=== PATIENT | female | born 1970 | race Caucasian/White ===

== ENCOUNTER 2024-12-22 10:38 | Outpatient (AMB) | payer OTHER, SELFPAY ==
--- NOTE | 2024-12-22 10:50 | A.OFFPC_ITS ---
Vital Signs 12/22/24 11:12 Height 5 ft 2 in Weight 164 lb 4 oz BMI 30.0 BP 100/62 Blood Pressure Location Lt brachial Position Sitting Respiration 18 Pulse 70 Pulse Source Pulse Oximeter Temp 97.1 F Temp Source Temporal Artery Scan Pulse Oximetry (%) 96 Oxygen Delivery Method Room Air Intake Visit Reasons: establish care Supervisor Graphite Required: No Accompanied by: Self / Same As Patient Allergies adhesive tape Adverse Reaction (Mild, Verified 12/22/24 11:45) Rash latex Adverse Reaction (Mild, Verified 12/22/24 11:45) Itching Medication List - Last Reconciled 12/22/24 by VENTURA Warner apixaban (Eliquis) 5 mg PO BID betamethasone dipropionate 0.05% 1 appl topical BID bupropion HCl XL 300 mg PO QAM warfarin 2 mg PO DAILY Tobacco use date assessed: 12/22/24 Dental Screening Dental Screen Date: 12/22/24 Did you have a dental visit in the last 12 months?: No Did you have a dental problem in the last 6 months where you did not have access to dental care?: No Was dental information given to patient?: No HPI establish care HPI Details Previous PCP: Stacy Justin [facility], Last visit: about two years Last PE: a year ago Specialist: hematology, sofie Benavidez MD, started on her on eliquis, sofie vascular Dr. Darrell RESENDIZ: Past medical history: Twisted veins and cancave veins, PE, cervical arthritis, Depression, anxiety, hemorrhoids large. Will referred to general surgery. Recurrent bleeding. breast cyst, hysterectomy, polyps, removes everything except for ovaries and tubes. menopause Medications: Family HX: father carotid artery, pacemaker, DM, brother DM, paternal aunts breast cancer, couple aunt , Problem: The patient is a 54-year-old female presenting for management of multiple chronic conditions including depression, anxiety, and hemorrhoids. The patient has a history of pulmonary embolism, which was initially diagnosed when she experienced symptoms resembling a heart attack. A CT scan confirmed the presence of a clot in the lungs, which has since been reabsorbed. She was initially treated with injections that caused significant bruising, leading to a switch to warfarin, and eventually to Eliquis due to unstable INR levels. The patient reports a history of depression and anxiety, for which she has been prescribed bupropion. She has been taking 300 mg but has self-adjusted the dose to 600 mg daily due to increased irritability and sleep disturbances. She experiences difficulty sleeping, often waking up in the middle of the night and struggling to return to sleep. The patient has hemorrhoids, which have been bleeding significantly, prompting a recommendation for a gastroenterology consultation. She has been using dxvv-ire-lgsjrvv Preparation H cream due to issues with obtaining prescribed medication. She has a history of twisted veins, particularly in the neck, which affects blood flow and oxygenation. This condition necessitates the continued use of blood thinners. The patient also reports arthritis in her neck, contributing to her discomfort. She experiences vertigo and has been evaluated by an ENT specialist, though no definitive cause was identified. Exercises have been recommended to manage the dizziness. The patient reports recurrent urinary tract infections, often indicated by malodorous urine. She acknowledges insufficient water intake as a contributing factor. She is post-menopausal and has experienced symptoms such as hot flashes and increased risk for urinary infections. [facility] Medical History (Updated 12/23/24 @ 22:34 by VENTURA Warner) Hemorrhoids Cervical arthritis History of colon polyps Breast cyst Recurrent UTI Pulmonary embolism Depression Anxiety Fibromyalgia AVM (arteriovenous malformation) brain Surgical History (Updated 12/23/24 @ 21:46 by VENTURA Warner) H/O: hysterectomy Family History (Updated 12/23/24 @ 21:31 by VENTURA Warner) Father Carotid artery calcification Diabetes mellitus Pacemaker Paternal Aunt Breast cancer Paternal Aunt Breast cancer Paternal Aunt Breast cancer Social History Household Members: Children Housing: House Alcohol intake: never Patient Tobacco Use Status: Never used Tobacco e-Cigarette/Vaping Use: Never Used Current occupational status: employed 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 1. Little interest or pleasure in doing things: not at all 2. Feeling down, depressed, or hopeless: not at all 3. Trouble falling or staying asleep, or sleeping too much: not at all 4. Feeling tired or having little energy: not at all 5. Poor appetite or overeating: not at all 6. Feeling bad about yourself - or that you are a failure or have let yourself or your family down: not at all 7. Trouble concentrating on things, such as reading the newspaper or watching television: not at all 8. Moving or speaking so slowly that other people could have noticed. Or the opposite - being so fidgety or restless that you have been moving around a lot more than usual: not at all 9. Thoughts that you would be better off or of hurting yourself in some way: not at all Total score: 0 Source: Developed by Drs. Brent Gutiérrez, Gloria Small, Rodolfo Barkley and colleagues, with an educational ange from [employer]. Thrive Questionnaire Date Thrive assessed: 12/15/24 I am a: Patient What is your living situation today?: I have a steady place to live Within the past 12 months, did the food you bought not last and you didn't have the money to get more?: I choose not to answer this question Within the past 12 months, did you worry whether your food would run out before you got money to buy more?: I choose not to answer this question Do you have trouble paying for medicines?: I choose not to answer this question Do you have trouble getting transportation to medical appointments?: I choose not to answer this question Do you have trouble paying your heating and electricity bill?: I choose not to answer this question Do you have trouble taking care of your child, family member or friend?: I choos e not to answer this question Do you have trouble with day-to-day activities such as bathing, preparing meals, shopping, managing finances, etc.?: I choose not to answer this question Are you currently unemployed and looking for a job?: I choose not to answer this question Are you interested in more education?: I choose not to answer this question Please select the resources that you would like help with: None Currently or been in a relationship where the following occur: I choose not to answer THRIVE Score: 0 AUDIT C Alcohol Use Questionnaire (AUDIT-C) 1. How often do you have a drink containing alcohol?: Never 3. How often do you have six or more drinks on one occasion?: Never Total Score: 0 SANDRA-7 AMB Questionnaire SANDRA-7 Feeling nervous, anxious, or on edge: 2 = More than half the days Not being able to stop or control worryin = More than half the days Worrying too much about different things: 2 = More than half the days Trouble relaxin = More than half the days Being so restless that it is hard to sit still: 0 = Not at all Becoming easily annoyed or irritable: 2 = More than half the days Feeling afraid as if something awful might happen: 0 = Not at all Total SANDRA-7 score (0-4 normal; 5-9 mild; 10-14 moderate; 15-21 severe): 10 Source: Developed by Drs. Brent Gutiérrez, Gloria Small, Rodolfo Barkley and colleagues, with an educational ange from [employer]. Review of Systems Const Reports difficulty sleeping and Denies headache(s) Eyes Denies loss of vision ENT Reports vertigo (hx), Denies dizziness, Denies headache(s) and Denies sore throat Card Denies chest pain, Denies leg edema and Denies lightheadedness Resp Denies cough, Denies hemoptysis and Denies wheezing GI Denies abdominal pain, Denies melena, Denies constipation, Denies diarrhea and Denies vomiting Denies urinary frequency, Denies dysuria and Denies urinary urgency Musc Denies arthralgias, Denies joint swelling, Denies numbness and Denies tingling Neuro Denies Abnormal speech present, Denies behavioral changes, Reports vertigo (hx), Denies dizziness, Denies headache(s), Denies loss of vision, Denies memory loss, Denies numbness and Denies tingling Psych Reports abnormal sleep pattern, Reports anxiety, Denies behavioral changes, Reports depression, Denies memory loss, Denies panic attacks, Denies homicidal ideation and Denies suicidal ideation Gavino/Lymph Denies easy bleeding and Denies easy bruising Aller/Immun Denies wheezing Physical exam (Primary Care) Vital Signs: Last Vital Signs Temp 97.1 F 12/22/24 11:12 Pulse 70 12/22/24 11:12 Resp 18 12/22/24 11:12 BP 100/62 12/22/24 11:12 Pulse Ox 96 12/22/24 11:12 Oxygen Delivery Method Room Air 12/22/24 11:12 BMI result Body Mass Index 30.0 Tobacco/Smoking Status: Tobacco use Status Tobacco use date assessed 12/22/24 12/22/24 11:27 Patient Tobacco Use Status Never used Tobacco 12/22/24 11:27 e-Cigarette/Vaping Use Never Used 12/22/24 11:27 PHQ-9: PHQ-9 Score PHQ-9: Total score 0 12/22/24 11:54 Thrive Assessment: Date of Thrive Assessment Date Thrive assessed 12/15/24 12/22/24 10:53 Currently or been in a relationship where the following occur: I choose not to answer Const General: healthy appearing, no acute distress, alert and awake Nutritional Appearance: well nourished Orientation/consciousness: oriented to person, oriented to place and oriented to time HENMT Ears: TM's normal bilaterally General nose exam: Normal nasal mucous membranes and turbinates present Eyes Conjunctivae: conjunctivae normal Sclerae: sclerae normal Pupils: Equal, round and reactive pupils present Neck Neck: Yes no lymphadenopathy and Yes no JVD Thyroid: Thyroid normal Carotids: no bruits Resp Effort & Inspection: normal respiratory effort and not tachypneic Auscultation: no crackles, no rales, no rhonchi and no wheezes Cardio Rate: regular rate Rhythm: regular rhythm Heart sounds: no murmurs and normal S1 and S2 GI Palpation (GI): Soft to palpation, nontender, no hepatomegaly and no splenomegaly Auscultation: normal bowel sounds Skin General skin exam: no rashes or lesions noted and dry skin Neuro General: oriented to person, oriented to place and oriented to time Cranial nerves: Yes Equal, round and reactive pupils present Speech: No Abnormal speech present Gait exam (Neuro): Normal gait present Motor exam (neuro): no tremor noted Extrem Right upper extremity: full ROM Left upper extremity: full ROM Right lower extremity: full ROM; no edema Left lower extremity: full ROM; no edema Psych Mental Status: mental status grossly normal Speech and movement: Normal speech and movement present Affect: normal affect Attitude: cooperative Thought process: Normal thought process present Coding Level of Care Code New Pt Level 4 (21336) Diagnoses Cyst of breast, unspecified laterality N60.09 Laterality: unspecified laterality Cervical arthritis M47.812 Pulmonary embolism without acute cor pulmonale, unspecified chronicity, unspecified pulmonary embolism type I26.99 Pulmonary embolism type: unspecified Chronicity: unspecified Acute cor pulmonale presence: without acute cor pulmonale Depression, unspecified depression type F32.A Depression Type: unspecified Anxiety F41.9 Hemorrhoids, unspecified hemorrhoid type K64.9 Hemorrhoid type: unspecified Menopause Z78.0 Vertigo R42 Insomnia, unspecified type G47.00 Insomnia type: unspecified Time Spent (min) 39 Assessment & Plan Assessment & Plan (1) Breast cyst: Code(s): N60.09 - Solitary cyst of unspecified breast Category: Medical Qualifiers: Laterality: unspecified laterality Qualified Code(s): N60.09 - Solitary cyst of unspecified breast Plan: Patient reports history of dense breasts requiring added imaging after each mammogram. Reports benign breast cyst that has been monitored. (2) Cervical arthritis: Code(s): M47.812 - Spondylosis without myelopathy or radiculopathy, cervical region Category: Medical Plan: Reports neck pain. Continue conservative measures, stretching, posturing and the used of OTC pain medication as needed (3) Pulmonary embolism: Code(s): I26.99 - Other pulmonary embolism without acute cor pulmonale Category: Medical Qualifiers: Pulmonary embolism type: unspecified Chronicity: unspecified Acute cor pulmonale presence: without acute cor pulmonale Qualified Code(s): I26.99 - Other pulmonary embolism without acute cor pulmonale Plan: Continue apixaban b.i.d.. Follow up with Hematology as scheduled (4) Depression: Code(s): F32.A - Depression, unspecified Category: Medical Qualifiers: Depression Type: unspecified Qualified Code(s): F32.A - Depression, unspecified Plan: Continue bupropion HCl XL 300 mg q.a.m. Consider refer the patient to Psychiatry to increase anxiety/depression recently Reports self increasing goes to 600 mg daily. Discussed with the patient that this is above the daily dosing, and she needs to be re-evaluated if her current regimen isn't working for her. (5) Anxiety: Code(s): F41.9 - Anxiety disorder, unspecified Category: Medical Plan: Same as above (6) Hemorrhoids: Code(s): K64.9 - Unspecified hemorrhoids Category: Medical Qualifiers: Hemorrhoid type: unspecified Qualified Code(s): K64.9 - Unspecified hemorrhoids Plan: The patient reports significant bleeding from hemorrhoids and has been advised to consult a divorce lawyer for further evaluation and management. In the interim, she is using atzq-bwy-cbncovb Preparation H cream. She was evaluated in [facility] ER. Reports that an abdominal CT Scan done completed that showed no acute findings. (7) Menopause: Code(s): Z78.0 - Asymptomatic menopausal state Category: Medical Plan: Patient reports hot flashes. We will order hormone tests to further evaluate (8) Vertigo: Code(s): R42 - Dizziness and giddiness Category: Medical Plan: The patient experiences vertigo and has been evaluated by an ENT specialist, with exercises recommended to manage symptoms. (9) Insomnia: Code(s): G47.00 - Insomnia, unspecified Category: Medical Qualifiers: Insomnia type: unspecified Qualified Code(s): G47.00 - Insomnia, unspecified Plan: Reinforced sleep hygiene Start trazodone 50 mg at bedtime p.r.n. Orders: Orders Complete Blood Count Auto Diff 12/22/24. - Encounter for general adult medical examination without abnormal findings Vitamin D 25-OH Total 12/22/24. - Encounter for general adult medical examination without abnormal findings Comprehensive [place]. Panel Fast 12/22/24. - Encounter for general adult medical examination without abnormal findings Lipid Panel 12/22/24. - Encounter for general adult medical examination without abnormal findings TSH reflex Free T4 12/22/24. - Encounter for general adult medical examination without abnormal findings UA CC w/rflx Micro + Cult 12/22/24 Z. - Encounter for general adult medical examination without abnormal findings Hemoglobin A1c 12/22/24. - Encounter for general adult medical examination without abnormal findings Medications: New trazodone 50 mg PO BEDTIME PRN 30 tabs 3RF sleep bupropion HCl XL 300 mg PO QAM 90 tabs 3RF
[2024-12-22 11:12] VITALS: BP 100/62; PULSE 70; RESP 18; TEMP 36.2; O2SAT 96
== END 2024-12-22 12:33 | disposition home or self-care (01) ==
LOC: HO.HMCH 10:39
DX: N60.09 Solitary cyst of unspecified breast (principal); M47.812 Spondylosis without myelopathy or radiculopathy, cervical region; I26.99 Other pulmonary embolism without acute cor pulmonale; F32.A Depression, unspecified; F41.9 Anxiety disorder, unspecified; K64.9 Unspecified hemorrhoids; Z78.0 Asymptomatic menopausal state; R42 Dizziness and giddiness; G47.00 Insomnia, unspecified

== ENCOUNTER → 2024-12-22 10:38 | Outpatient (BNVA) | payer OTHER, SELFPAY | DX: M47.812 Spondylosis without myelopathy or radiculopathy, cervical region (principal); F32.A Depression, unspecified; F41.9 Anxiety disorder, unspecified; K64.9 Unspecified hemorrhoids; R42 Dizziness and giddiness; Z86.711 Personal history of pulmonary embolism; Z79.899 Other long term (current) drug therapy; Z79.01 Long term (current) use of anticoagulants; Z87.440 Personal history of urinary (tract) infections; N60.09 Solitary cyst of unspecified breast; G47.00 Insomnia, unspecified; Z78.0 Asymptomatic menopausal state | CPT/HCPCS: 99202 ==

== ENCOUNTER 2024-12-29 12:21 | Outpatient (REF) | payer OTHER, SELFPAY ==
[2024-12-29 13:19] LABS: MANUAL DIFF FLAG NO
[2024-12-29 13:21] LABS: Appearance Urine Clear; Glucose Urine UA Negative (Negative); PH 5.5 (5.0-9.0); Specific Gravity - Urine >= 1.030 (1.005-1.025); UMIC TRIGGER UACC YES
[2024-12-29 13:26] LABS: Hematocrit 43.4 % (37.0-47.0); Hemoglobin 14.3 g/dl (12.0-16.0); Imm Gran Abs Auto 0.03 X10*3/uL (0.00-0.03); Imm Gran Pct Auto 0.4 % (0.0-0.4); Lymphocytes Absolute Auto 2.2 X10*3/uL (1.2-4.9); Mean Corpuscular HGB Conc 32.9 g/dl (31.0-35.0); Mean Corpuscular Hemoglobin 31.4 pg (27.0-33.0); Mean Corpuscular Volume 95.4 fL (80.0-98.0); NRBC Abs Auto 0.000 X10*3/uL (0.0-0.012); NRBC Pct Auto 0.0 /100WBC (0.0-0.2); Platelet Count 310 X10*3/uL (160-400); Red Blood Count 4.55 X10*6/uL (4.20-5.50); White Blood Count 7.5 X10*3/uL (4.8-10.8)
[2024-12-29 14:15] LABS: Alanine Aminotransferase 18 U/L (0-31); Albumin Level 4.3 g/dL (3.5-5.0); Alkaline Phosphatase 64 U/L (39-117); Anion Gap 9 (12-20); Aspartate Amino Transferase 21 U/L (5-31); Blood Urea Nitrogen 20 mg/dL (9-16); Calcium 9.1 mg/dL (8.4-10.2); Carbon Dioxide 28 mmol/L (22-29); Chloride 108 mmol/L (96-108); Cholesterol 226 mg/dL (<200); Estimated Glomerular Filt Rate 57; HDL Cholesterol 53 mg/dL (>40); Potassium 4.4 mmol/L (3.3-5.1); Sodium 141 mmol/L (135-145); Total Protein 7.1 g/dL (6.5-8.0); Triglycerides 83 mg/dL (<150)
[2024-12-29 14:19] LABS: Hemoglobin A1C 104.7012 umol/L; Total Hemoglobin (HGBA1C) 3595.4519 umol/L
--- OUTSIDE RECORDS SUMMARY | 2024-12-29 15:36 | XMS_ITS | Encounter Summary ---
Author Organization [facility] Address [address] [place] [address] Care Team Providers Care Hold Worker Name Role Phone Mercy Bunch MD Primary Care Provider Thelma Camp Primary Care Provider Lorrie Solis MD Primary Care Provider [phone] Laly Gomez MD Unavailable Lorrie Solis MD Unavailable [phone] Lorrie Solis MD Unavailable Renee Walker Unavailable [phone] Lorrie Solis MD Primary Care Provider [phone] Pcp, No Primary Care Provider Unavailabl e Encounter Details Date Type Department Care Team (Late st Contact Info) Description 10/31/2015 Scanned Document [address] [id number] Provider, Generic Social History Tobacco Use Types Packs/Day Years Used Date Smoking Tobacco: Never Alcohol Use Standard Drinks/Week Comments Not Asked 0 (1 standard drink = 0.6 oz pur e alcohol) ASK,PT Comments Unknown Sex and Gender Information Value Date Recorded Sex Assigned at Female 08/07/2022 12:03 PM EDT Legal Sex Female 3:32 PM EDT Gender Identity Female 08/07/2022 12:03 PM EDT Sexual Orientation Heterosexual (straight) 08/07 12:03 PM EDT Occupation Industry Job Start Date Job End Date UNKNOWN Not on file Not on file Not on file documented as of this encounter Plan of Treatment Not on file documented as of this encounter Procedures Procedure Name Priority Date/Time Associated Diagnosis Comments ULTRASOUND EXTERNAL RESULT 11/02/2015 ULTRASOUND EXTERNAL RESULT 10/31/2015 documented in this encounter Results * ULTRASOUND EXTERNAL RESULT (11/02/2015) Anatomical Region Laterality Modality Ultrasound Narrative 11/03/2015 1:12 AM EDT Ordered by an unspecified provider. us Generic Provider IMG US ORDERABLES Edited Result - Final * ULTRASOUND EXTERNAL RESULT (10/31/2015) Anatomical Region Laterality Modality Ultrasound Narrative 11/02/2015 1:08 AM EDT Ordered by an unspecified provider. us Generic Provider IMG US ORDERABLES Edited Result - Final documented in this encounter Visit Diagnoses Not on filedocumented in this encounter Care Teams Hold Worker Relationship Specialty Start Date End Date Mercy Bunch MD PCP - General Internal Medicine 10/20/14 11/02/15 Thelma Camp PA PCP - General Internal Medicine 11/03/15 04/02/17 Lorrie Solis MD [address] [place] [address] PCP - General Internal Medicine 04/03/17 06/13/24 Lorrie Solis MD [address] [place] [address] PCP - [employer] Attributed 02/14/19 03/16/20 Lorrie Solis MD [address] [place] [address] PCP - [employer] Attributed 04/17/20 04/16/23 Lorrie Solis MD [address] [place] [id number] PCP - General Internal Medicine 06/28/24 09/23/24 Pcp, No PCP - General General Medicine 09/24/24 Laly Gomez MD [address] [place] [address] Obstetrics and Gynecology 01/01/19 Renee Walker PA [address] [place] [address] Physician Pole Tester Medical Oncology 12/17/22 documented as of this encounter
--- OUTSIDE RECORDS SUMMARY | 2024-12-29 15:36 | XMS_ITS | Clinical Summary ---
Author Organization [facility] Address [address] [place] [address] Care Team Providers Care Chief Of Internal Medicine Name Role Phone Lorrie Solis MD Primary Care Provider [phone] Allergies Active Allergy Reactions Criticality Noted Date Comments Adhesive Tape Rash Low 10/26/2012 Medications Medication Sig Dispensed Refills Start Date End Date Status buPROPion (WELLBUTRIN XL) 300 MG 24 hr tablet TAKE 1 TABLET BY MOUTH ONCE DAILY SWALLOW WHOLE DO NOT CRUSH, CHEW OR DIVIDE 0 04/17/2021 Active warfarin (COUMADIN) 2 MG tablet Take 1 tablet (2 mg total) by mouth daily. 30 tablet 0 12/30/2023 Active Active Problems Problem Noted Date Diagnosed Date Clinical depression 10/25/2014 Routine general medical exam ination at a health care facility 10/25/2014 Factor 5 Leiden mutation, heterozygous 5 Overview: heterozygosity H/O PE 10/26/10; Hypercoagulable state 10/25/2014 Anxiety state 2014 Scoliosis (and kyphoscoliosis), idiopathic 04/27 PE (pulmonary embolism) 10/26/2010 Family History Medical History Relation Name Comments Colon cancer Father Blood Clots Mother Breast cancer Paternal Aunt Deep vein thrombosis Paternal Aunt Breast cancer Sister Relation Name Status Comments Father Mother Paternal Aunt Sister Social History Tobacco Use Types Packs/Day Years Used Date Smoking Tobacco: Never Smokeless Tobacco: Never Alcohol Use Standard Drinks/Week Comments No 0 (1 standard drink = 0.6 oz pur e alcohol) Sex and Gender Information Value Date Recorded Sex Assigned at Female 09/20/2020 12:44 PM EDT Gender Identity Female 10/13/2021 12:19 PM EDT Sexual Orientation Not on file Job Start Date Occupation Industry Not on file Not on file Not on file Last Filed Vital Signs Vital Sign Reading Time Taken Comments Blood Pressure 146/67 08/27/2023 1:00 AM EDT Pulse 70 08/27/2023 1:00 AM EDT Temperature 36.6 C (97.9 F) 08/27/2023 1:00 AM EDT Respiratory Rate 17 08/27/2023 1:00 AM EDT Oxygen Saturation 97% 08/27/2023 1:00 AM EDT Inhaled Oxygen Concentration - - Weight 70.8 kg (156 lb) 08/26/2023 9:57 PM EDT Height 157.5 cm (5' 2 ) 08/26/2023 9:57 PM EDT Body Mass Index 28.53 08/26/2023 9:57 PM EDT Plan of Treatment Health Maintenance Due Date Last Done Comments Hepatitis B Vaccines (1 of 3 - 3-dose series) 1970 Depression Screening 1982 Preventative Health Evaluation 1988 Cervical Cancer Screening (Pap Smear) 1991 Colon Cancer Screening (Colonoscopy) 2015 Breast Cancer Screening (Mammogram) 2020 BMI Counseling 11/27/2023 11/26/2022, 03/0 09/2022, 10/16/2021, Additional history exists COVID-19 Vaccine ( season) 2024 03/29/2021 Influenza Vaccine (#1) 2024 11/18/2018 DTap / Tdap / Td (3 - Td or Tdap) 04/05/2026 04/05/2016, 02/12/2007 Shingrix-Zoster Vaccine Completed 03/06/2023, 11/11 Hepatitis C Screening Completed 04/01/2023, 013 Pneumococcal Vaccine Aged Out No long er eligible based on patient's age to complete this topic RSV Ped < 20 months Aged Out No longe r eligible based on patient's age to complete this topic Advance Directives For more information, please contact: [phone] Documents on File Type Date Recorded 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
--- OUTSIDE RECORDS SUMMARY | 2024-12-29 15:36 | XMS_ITS | Encounter Summary ---
Author Organization [facility] Address [address] [place] [address] Care Team Providers Care Tool Crib Lead Name Role Phone Mercy Bunch MD Primary Care Provider Thelma Camp Primary Care Provider Lorrie Solis MD Primary Care Provider [phone] Laly Gomez MD Unavailable Lorrie Solis MD Unavailable Lorrie Solis MD Unavailable Renee Walker Unavailable Lorrie Solis MD Primary Care Provider [phone] Pcp, No Primary Care Provider Unavailabl e Reason for Visit * Reason Comments Medication Refill Encounter Details Date Type Department Care Team (Late st Contact Info) Description 04/20/[address] [place] [phone] Mercy Bunch MD [address] [address] Anxiety (Primary Dx) Social History Tobacco Use Types Packs/Day Years [...] on file documented as of this encounter Miscellaneous Notes * Telephone Encounter - Bhargav Alfonso - 04/26/2015 12:27 AM EST Her last visit was almost 1 year ago. Her prescription was renewed for 2 months supply, but she needs to schedule follow up in the officeappointment before I will authorize more refills. documented in this encounter Plan of Treatment Not on file documented as of this encounter Visit Diagnoses Diagnosis Anxiety- Primary Anxiety state, unspecified documented in this encounter Care Teams Tool Crib Lead Relationship Specialty Start Date End Date Meryc Bunch MD PCP - General Internal Medicine 10/20/14 11/02/15 Thelma Camp PA PCP - General Internal Medicine 11/03/15 04/02/17 Lorrie Solis MD [address] [place] [address] PCP - General Internal Medicine 04/03/17 06/13/24 Lorrie Solis MD [address] [place] [address] PCP - [employer] Attributed 02/14/19 03/16/20 Lorrie Solis MD [address] [place] [address] PCP - [employer] Attributed 04/17/20 04/16/23 Lorrie Solis MD [address] [place] [address] PCP - General Internal Medicine 06/28/24 09/23/24 Pcp, No PCP - General General Medicine 09/24/24 Laly Gomez MD [address] [place] [address] Obstetrics and Gynecology 01/01/19 Renee Walker PA [address] [place] [id number] Physician Trackless Trolley Driver Medical Oncology 12/17/22 documented as of this encounter
--- OUTSIDE RECORDS SUMMARY | 2024-12-29 15:36 | XMS_ITS | Encounter Summary ---
Author Organization [facility] Address [address] [place] [address] Care Team Providers Care Farm Service Consultant Name Role Phone Mercy Bunch MD Primary Care Provider Thelma Camp Primary Care Provider Lorrie Solis MD Primary Care Provider [phone]- [phone] Laly Gomez MD Unavailable Lorrie Solis MD Unavailable Lorrie Solis MD Unavailable Renee Walker Unavailable Lorrie Solis MD Primary Care Provider +1- [phone] Pcp, No Primary Care Provider Unavailabl e Reason for Visit * Reason Comments Medication Refill Encounter Details Date Type Department Care Team (Late st Contact Info) Description 10/02/[address] [phone] Lorrie Solis MD [address] [place] [address] Depression Social History Tobacco Use Types Packs/Day Years [...] as of this encounter Visit Diagnoses Diagnosis Depression Depressive disorder, not elsewhere classified documented in this encounter Care Teams Farm Service Consultant Relationship Specialty Start Date End Date Mercy Bunch MD PCP - General Internal Medicine 10/20/14 11/02/15 Thelma Camp PA PCP - General Internal Medicine 11/03/15 04/02/17 Lorrie Solis MD [address] [place] [address] PCP - General Internal Medicine 04/03/17 06/13/24 Lorrie Solis MD [address] [place] [address] PCP - [employer] Attributed 02/14/19 03/16/20 Lorrie Solis MD [address] [place] [address] [facility] 04/17/20 04/16/23 Lorrie Solis MD [address] [place] [address] PCP - General Internal Medicine 06/28/24 09/23/24 Pcp, No PCP - General General Medicine 09/24/24 Laly Gomez MD [address] [place] [address] Obstetrics and Gynecology 01/01/19 Renee Walker PA [address] [place] [address] Physician Flight Operations Dispatch Clerk Medical Oncology 12/17/22 documented as of this encounter
--- OUTSIDE RECORDS SUMMARY | 2024-12-29 15:36 | XMS_ITS | Encounter Summary ---
Author Organization [facility] Address [address] [place] [address] Care Team Providers Care Vice President Quality Assurance Name Role Phone Lorrie Solis MD Primary Care Provider [phone]- [phone] Laly Gomez MD Unavailable [phone] Lorrie Solis MD Unavailable [phone] Renee Walker Unavailable Lorrie Solis MD Primary Care Provider +[phone]- [phone] Pcp, No Primary Care Provider Unavailabl e Encounter Details Date Type Department Care Team (Late st Contact Info) Description 06/14/2022 Scanned Document [facility] PRIMARY CARE SCAN Lorrie Solis MD [address] [place] [address] Social History Tobacco Use Types Packs/Day Years Used Date Smoking Tobacco: Never Smokeless Tobacco: Never Alcohol Use Standard Drinks/Week Comments No 0 (1 standard drink = 0.6 oz pur e alcohol) cant PHQ-2 Answer Date Recorded PHQ-2 Total Score 0 11/24/2019 Comments No Sex and Gender Information Value Date Recorded Sex Assigned at Female 08/07/2022 12:03 PM EDT Legal Sex Female 3:32 PM EDT Gender Identity Female 08/07/2022 12:03 PM EDT Sexual Orientation Heterosexual (straight) 08/07 12:03 PM EDT Occupation Industry Job Start Date Job End Date UNKNOWN Not on file Not on file Not on file COVID-19 Exposure Response Date Recorded In the last 10 days, have yo u been in contact with someone who was confirmed or suspected to have Coronavirus/COVID-19? No / Unsure 06/12/2022 1:27 PM EDT documented as of this encounter Plan of Treatment Not on file documented as of this encounter Goals Goal Patient Goal Type Associated Problems Recent Progress Patient-Stated? Author PT LTG 1 Physical Therapy No Blake Shore, PT Note: Pt will be able to sleep uninterrupted for 8 hours within 8 weeks. INCOMPLETE Pt will work full 8-hour shift without pain within 8 weeks. COMPLETE Pt will be able to drive >30 min painfree within 8 weeks. COMPLETE Pt will demonstrate full and painfree R shoulder AROM within 6 weeks. COMPLETE Pt will demonstrate 4+/5 MMT throughout R shoulder within 6 weeks. COMPLETE Pt will be independent in HEP within 1 week.COMPLETE documented as of this encounter Visit Diagnoses Not on filedocumented in this encounter Care Teams Vice President Quality Assurance Relationship Specialty Start Date End Date Lorrie Solis MD [address] [place] [address] PCP - General Internal Medicine 04/03/17 06/13/24 Lorrie Solis MD [address] [place] [address] PCP - [employer] Commercial Attributed 04/17/20 04/16/23 Lorrie Solis MD [address] [place] [address] PCP - General Internal Medicine 06/28/24 09/23/24 Pcp, No PCP - General General Medicine 09/24/24 Laly Gomez MD [address] [place] [address] Obstetrics and Gynecology 01/01/19 Renee Walker PA [address] [place] [address] Physician Personal Injury Specialist Medical Oncology 12/17/22 documented as of this encounter
--- OUTSIDE RECORDS SUMMARY | 2024-12-29 15:36 | XMS_ITS | Encounter Summary ---
Author Organization [facility] Address [address] [place] [address] Care Team Providers Care Washer And Capper Machine Operator Name Role Phone Lorrie Solis MD Primary Care Provider [phone]- [phone] Laly Gomez MD Unavailable Lorrie Solis MD Unavailable [phone] Renee Walker Unavailable [phone] Lorrie Solis MD Primary Care Provider [phone]- [phone] Pcp, No Primary Care Provider Unavailabl e Encounter Details Date Type Department Care Team (Late st Contact Info) Description 12/12/2022 Scanned Document [facility] [place] [facility] Colorectal Surgery [place] 85 [facility] [address] [place] [phone] Renee Walker, PA 1264 [facility] 107 [place], [place] [id number] Social History Tobacco Use Types Packs/Day Years [...] on filedocumented in this encounter Care Teams Washer And Capper Machine Operator Relationship Specialty Start Date End Date Lorrie Solis MD [address] [place] [address] PCP - General Internal Medicine 04/03/17 06/13/24 Lorrie Solis MD [address] [place] [address] PCP - [employer] Attributed 04/17/20 04/16/23 Lorrie Solis MD [address] [place] [address] PCP - General Internal Medicine 06/28/24 09/23/24 Pcp, No PCP - General General Medicine 09/24/24 Laly Gomez MD [address] [place] [address] Obstetrics and Gynecology 01/01/19 Renee Walker PA [address] [place] [address] Physician Physician Underwriter Medical Oncology 12/17/22 documented as of this encounter
--- OUTSIDE RECORDS SUMMARY | 2024-12-29 15:36 | XMS_ITS | Encounter Summary ---
Author Organization [facility] Address [address] [place] [address] Care Team Providers Care Remote Sensing Specialist Name Role Phone Lorrie Solis MD Primary Care Provider [phone]- [phone] Laly Gomez MD Unavailable Lorrie Solis MD Unavailable [phone] Renee Walker Unavailable Lorrie Solis MD Primary Care Provider [phone]- [phone] Pcp, No Primary Care Provider Unavailabl e Encounter Details Date Type Department Care Team (Late st Contact Info) Description 12/12/2022 Scanned Document [facility] Colorectal Surgery [place] 85 [facility] [address] [place] [phone] Renee Walker, [place] 1263 [facility] 107 [place], [place] [id number] Social History Tobacco Use Types Packs/Day Years [...] on filedocumented in this encounter Care Teams Remote Sensing Specialist Relationship Specialty Start Date End Date Lorrie Solis MD [address] [place] [address] PCP - General Internal Medicine 04/03/17 06/13/24 Lorrie Solis MD [address] [place] [address] PCP - [employer] Attributed 04/17/20 04/16/23 Lorrie Solis MD [address] [place] [address] PCP - General Internal Medicine 06/28/24 09/23/24 Pcp, No PCP - General General Medicine 09/24/24 Laly Gomez MD [address] [place] [address] Obstetrics and Gynecology 01/01/19 Renee Walker PA [address] [place] [address] Physician Principal Programmer Medical Oncology 12/17/22 documented as of this encounter
--- OUTSIDE RECORDS SUMMARY | 2024-12-29 15:36 | XMS_ITS | Encounter Summary ---
Author Organization [facility] Address [address] [place] [address] Care Team Providers Care Agronomist Name Role Phone Lorrie Solis MD Primary Care Provider [phone] Laly Gomez MD Unavailable Lorrie Solis MD Unavailable [phone] Renee Walker Unavailable Lorrie Solis MD Primary Care Provider [phone]- [phone] Pcp, No Primary Care Provider Unavailabl e Encounter Details Date Type Department Care Team (Late st Contact Info) Description 05/03/2020 Scanned Document [address] [phone] Lorrie Solis MD [address] [place] [address] Social History Tobacco Use Types Packs/Day Years [...] Exposure Response Date Recorded In the last month, have you been in contact with someone who was confirmed or suspected to have Coronavirus / COVID-19? No / Unsure 04/22/2020 10:30 AM EST documented as of this encounter Plan of Treatment Not on file documented as of this encounter Visit Diagnoses Not on filedocumented in this encounter Care Teams Agronomist Relationship Specialty Start Date End Date Lorrie Solis MD [address] [place] [address] PCP - General Internal Medicine 04/03/17 06/13/24 Lorrie Solis MD [address] [place] [address] PCP - [employer] Commercial Attributed 04/17/20 04/16/23 Lorrie Solis MD [address] [place] [address] PCP - General Internal Medicine 06/28/24 09/23/24 Pcp, No PCP - General General Medicine 09/24/24 Laly Gomez MD [address] [place] [address] Obstetrics and Gynecology 01/01/19 Renee Walker PA [address] [place] [address] Physician Education Administrator Medical Oncology 12/17/22 documented as of this encounter
--- OUTSIDE RECORDS SUMMARY | 2024-12-29 15:36 | XMS_ITS | Encounter Summary ---
Author Organization [facility] Address [address] [place] [address] Care Team Providers Care Assistant Broker Name Role Phone Mercy Bunch MD Primary Care Provider Thelma Camp Primary Care Provider Lorrie Solis MD Primary Care Provider [phone] Laly Gomez MD Unavailable Lorire Solis MD Unavailable Lorrie Solis MD Unavailable Renee Walker Unavailable Lorrie Solis MD Primary Care Provider [phone]- [phone] Pcp, No Primary Care Provider Unavailabl e Reason for Visit * Reason Comments Medication Refill Encounter Details Date Type Department Care Team (Late st Contact Info) Description 09/05/[address] [phone] Lorrie Solis MD [address] [place] [address] Social History Tobacco Use Types Packs/Day Years [...] on filedocumented in this encounter Care Teams Assistant Broker Relationship Specialty Start Date End Date Mercy Bunch MD PCP - General Internal Medicine 10/20/14 11/02/15 Thelma Camp PA PCP - General Internal Medicine 11/03/15 04/02/17 Lorrie Solis MD [address] [place] [address] PCP - General Internal Medicine 04/03/17 06/13/24 Lorrie Solis MD [address] [place] [address] PCP - [employer] Attributed 02/14/19 03/16/20 Lorrie Solis MD [address] [place] [address] PCP - [employer] Commercial Attributed 04/17/20 04/16/23 Lorrie Solis MD [address] [place] [address] PCP - General Internal Medicine 06/28/24 09/23/24 Pcp, No PCP - General General Medicine 09/24/24 Laly Gomez MD [address] [place] [address] Obstetrics and Gynecology 01/01/19 Renee Walker PA [address] [place] [address] Physician Mortuary Beautician Medical Oncology 12/17/22 documented as of this encounter
--- OUTSIDE RECORDS SUMMARY | 2024-12-29 15:36 | XMS_ITS | Encounter Summary ---
Author Organization [facility] Address [address] [place] [address] Care Team Providers Care Camp Nurse Name Role Phone Lorrie Solis MD Primary Care Provider [phone]- [phone] Laly Gomez MD Unavailable Lorrie Solis MD Unavailable Renee Walker Unavailable Lorrie Solis MD Primary Care Provider [phone]- [phone] Pcp, No Primary Care Provider Unavailabl e Encounter Details Date Type Department Care Team (Late st Contact Info) Description 06/13/2022 Scanned Document [facility] PRIMARY CARE SCAN Lorrie Solis MD [address] [place] [address] Social History Tobacco Use Types Packs/Day Years [...] on filedocumented in this encounter Care Teams Camp Nurse Relationship Specialty Start Date End Date Lorrie Solis MD [address] [place] [address] PCP - General Internal Medicine 04/03/17 06/13/24 Lorrie Solis MD [address] [place] [address] PCP - [employer] Commercial Attributed 04/17/20 04/16/23 Lorrie Solis MD [address] [place] [address] PCP - General Internal Medicine 06/28/24 09/23/24 Pcp, No PCP - General General Medicine 09/24/24 Laly Gomez MD [address] [place] [address] Obstetrics and Gynecology 01/01/19 Renee Walker PA [address] [place] [address] Physician Technician Semiconductor Development Medical Oncology 12/17/22 documented as of this encounter
--- OUTSIDE RECORDS SUMMARY | 2024-12-29 15:36 | XMS_ITS | Encounter Summary ---
Author Organization [facility] Address [address] [place] [address] Care Team Providers Care Security Assurance Analyst Name Role Phone Lorrie Solis MD Primary Care Provider [phone] Llay Gomez MD Unavailable [phone] Lorrie Solis MD Unavailable [phone] Lorrie Solis MD Unavailable [phone] Renee Walker Unavailable [phone] Lorrie Solis MD Primary Care Provider + [phone] Pcp, No Primary Care Provider Unavailabl e Reason for Visit * Reason Comments Medication Refill Encounter Details Date Type Department Care Team (Late st Contact Info) Description 06/19/[address] [phone] Lorrie Solis MD [address] [place] [address] [address] [place] [address] Depression, unspecified depression type Social History Tobacco Use Types Packs/Day Years Used Date Smoking Tobacco: Never Smokeless Tobacco: Never Alcohol Use Standard Drinks/Week Comments No 0 (1 standard drink = 0.6 oz pur e alcohol) cant Comments No Sex and Gender Information Value [...] as of this encounter Visit Diagnoses Diagnosis Depression, unspecified depression type documented in this encounter Care Teams Security Assurance Analyst Relationship Specialty Start Date End Date Lorrie Solis MD [address] [place] [address] PCP - General Internal Medicine 04/03/17 06/13/24 Lorrie Solis MD [address] [place] [address] PCP - [employer] Attributed 02/14/19 03/16/20 Lorrie Solis MD [address] [place] [address] PCP - [employer] Attributed 04/17/20 04/16/23 Lorrie Solis MD [address] [place] [address] PCP - General Internal Medicine 06/28/24 09/23/24 Pcp, No PCP - General General Medicine 09/24/24 Laly Gomez MD [address] [place] [address] Obstetrics and Gynecology 01/01/19 Renee Walker PA [address] [place] [address] Physician Dry Chain Operator Medical Oncology 12/17/22 documented as of this encounter
--- OUTSIDE RECORDS SUMMARY | 2024-12-29 15:36 | XMS_ITS | Encounter Summary ---
Author Organization [facility] Address [address] [place] [address] Care Team Providers Care Carbon Setter Name Role Phone Lorrie Solis MD Primary Care Provider [phone]- [phone] Laly Gomez MD Unavailable [phone] Lorrie Solis MD Unavailable Renee Walker Unavailable [phone] Lorrie Solis MD Primary Care Provider [phone]- [phone] Pcp, No Primary Care Provider Unavailabl e Encounter Details Date Type Department Care Team (Late st Contact Info) Description 09/19/2020 Scanned Document [address] [phone] Lorrie Solis MD [address] [place] [phone] Social History Tobacco Use Types Packs/Day Years [...] have Coronavirus / COVID-19? No / Unsure 09/19/2020 8:32 AM EDT documented as of this encounter Plan of Treatment Not on file documented as of this encounter Visit Diagnoses Not on filedocumented in this encounter Care Teams Carbon Setter Relationship Specialty Start Date End Date Lorrie Solis MD [address] [place] [address] PCP - General Internal Medicine 04/03/17 06/13/24 Lorrie Solis MD [address] [place] [address] PCP - [employer] Commercial Attributed 04/17/20 04/16/23 Lorrie Solis MD [address] [place] [address] PCP - General Internal Medicine 06/28/24 09/23/24 Pcp, No PCP - General General Medicine 09/24/24 Laly Gomez MD [address] [place] [address] Obstetrics and Gynecology 01/01/19 Renee Walker PA [address] [place] [address] Physician Dental Chairside Assistant Medical Oncology 12/17/22 documented as of this encounter
--- OUTSIDE RECORDS SUMMARY | 2024-12-29 15:36 | XMS_ITS | Encounter Summary ---
Author Organization [facility] Address [address] [place] [address] Care Team Providers Care Reverberatory Furnace Operator Name Role Phone Lorrie Solis MD Primary Care Provider [phone]- [phone] Laly Gomez MD Unavailable Lorrie Solis MD Unavailable Renee Walker Unavailable Lorrie Solis MD Primary Care Provider +1- [phone] Pcp, No Primary Care Provider Unavailabl e Encounter Details Date Type Department Care Team (Late st Contact Info) Description 12/12/[address] [facility] Colorectal Surgery [place] 85 [facility] [place] [facility] [address] [place] [phone] Renee Walker, PA 1266 [facility] 107 [place], [place] [phone] Social History Tobacco Use Types Packs/Day Years [...] on filedocumented in this encounter Care Teams Reverberatory Furnace Operator Relationship Specialty Start Date End Date Lorrie Solis MD [address] [place] [address] PCP - General Internal Medicine 04/03/17 06/13/24 Lorrie Solis MD [address] [place] [address] PCP - [employer] Commercial Attributed 04/17/20 04/16/23 Lorrie Solis MD [address] [place] [address] PCP - General Internal Medicine 06/28/24 09/23/24 Pcp, No PCP - General General Medicine 09/24/24 Laly Gomez MD [address] [place] [address] Obstetrics and Gynecology 01/01/19 Renee Walker PA [address] [place] [address] Physician Sound Installation Worker Medical Oncology 12/17/22 documented as of this encounter
--- OUTSIDE RECORDS SUMMARY | 2024-12-29 15:36 | XMS_ITS | Encounter Summary ---
Author Organization [facility] Address [address] [place] [address] Care Team Providers Care Bee Producer Name Role Phone Thelma Camp Primary Care Provider [phone] Lorrie Solis MD Primary Care Provider [phone]- [phone] Laly Gomez MD Unavailable [phone] Lorrie Solis MD Unavailable Lorrie Solis MD Unavailable Renee Walker Unavailable [phone] Lorrie Solis MD Primary Care Provider [phone]- [phone] Pcp, No Primary Care Provider Unavailabl e Encounter Details Date Type Department Care Team (Late st Contact Info) Description 01/23/2016 Scanned Document [address] [phone] Provider, Generic Social History Tobacco Use Types Packs/Day Years Used Date Smoking Tobacco: Never Alcohol Use Standard Drinks/Week Comments Not Asked 0 (1 standard drink = 0.6 oz pur e alcohol) ASK,PT Comments No Sex and Gender Information Value [...] on filedocumented in this encounter Care Teams Bee Producer Relationship Specialty Start Date End Date Thelma Camp PA PCP - General Internal Medicine 11/03/15 04/02/17 Lorrie Solis MD [address] [place] [address] PCP - General Internal Medicine 04/03/17 06/13/24 Lorrie Solis MD [address] [place] [address] PCP - [employer] Attributed 02/14/19 03/16/20 Lorrie Solis MD [address] [place] [address] PCP - [employer] Commercial Attributed 04/17/20 04/16/23 Lorrie Solis MD [address] [place] [address] PCP - General Internal Medicine 06/28/24 09/23/24 Pcp, No PCP - General General Medicine 09/24/24 Laly Gomez MD [address] [place] [address] Obstetrics and Gynecology 01/01/19 Renee Walker PA [address] [place] [address] Physician Cash Analyst Medical Oncology 12/17/22 documented as of this encounter
--- OUTSIDE RECORDS SUMMARY | 2024-12-29 15:36 | XMS_ITS | Encounter Summary ---
Author Organization [facility] Address [address] [place] [address] Care Team Providers Care Turn Sewer Name Role Phone Lorrie Solis MD Primary Care Provider [phone]- [phone] Laly Gomez MD Unavailable Lorrie Solis MD Unavailable Renee Walker Unavailable Lorrie Solis MD Primary Care Provider +1- [phone] Pcp, No Primary Care Provider Unavailabl e Reason for Visit * Reason Comments Results Request Encounter Details Date Type Department Care Team (Late st Contact Info) Description 07/18/2022 Telephone [facility] [address] [place] [phone] Lorrie Solis MD [address] [place] [address] Results Request Social History Tobacco Use Types Packs/Day Years [...] encounter Miscellaneous Notes * Telephone Encounter - Lorrie Solis MD - 07/18/2022 3:53 PM EDT Reviewed with patient * Telephone Encounter - Lorrie Solis MD - 07/18/2022 3:42 PM EDT Called back patient to review results. Went to [employer] and says that mailbox is full so can not leave message Please get me if she calls back She has finding of possible fibromuscular dysplasia. I put referral for her to see vascular. If shecalls back, please give her referral information and if she has any further questions I can call her back. The second number listed in her chart does not work Ask her for an alternative number. * Telephone Encounter - Lisbet Vogt MA - 07/18/2022 11:55 AM EDT Pt looking for results on CTA neck - please review and advise documented in this encounter Plan of Treatment [...] on filedocumented in this encounter Care Teams Turn Sewer Relationship Specialty Start Date End Date Lorrie Solis MD [address] [place] [address] PCP - General Internal Medicine 04/03/17 06/13/24 Lorrie Solis MD [address] [place] [address] PCP - [employer] Commercial Attributed 04/17/20 04/16/23 Lorrie Solis MD [address] [place] [address] PCP - General Internal Medicine 06/28/24 09/23/24 Pcp, No PCP - General General Medicine 09/24/24 Laly Gomez MD [address] [place] [address] Obstetrics and Gynecology 01/01/19 Renee Walker PA [address] [place] [address] Physician Surgical Aides Teacher Medical Oncology 12/17/22 documented as of this encounter
--- OUTSIDE RECORDS SUMMARY | 2024-12-29 15:36 | XMS_ITS | Encounter Summary ---
Author Organization Formerly [facility] Address [address] [place] [address] Care Team Providers Care Dope Mixer Name Role Phone Lorrie Solis MD Primary Care Provider [phone] Laly Gomez MD Unavailable [phone] Lorrie Solis MD Unavailable [phone] Lorrie Solis MD Unavailable [phone] Renee Walker Unavailable [phone] Lorrie Solis MD Primary Care Provider [phone]- [phone] Pcp, No Primary Care Provider Unavailabl e Encounter Details Date Type Department Care Team (Late st Contact Info) Description 06/26/2018 Scanned Document [address] [place] [id number] Provider, Generic Social History Tobacco Use Types [...] Procedure Name Priority Date/Time Associated Diagnosis Comments IMAGING BREAST/BX/MAMMO 06/26/2018 documented in this encounter Results * IMAGING BREAST/BX/MAMMO (06/26/2018) Anatomical Region Laterality Modality Other Narrative 06/26/2018 Ordered by an unspecified provider. us Generic Provider IMG LEGACY PROCEDURES Edited Re sult - Final documented in this encounter Visit Diagnoses Not on filedocumented in this encounter Care Teams Dope Mixer Relationship Specialty Start Date End Date Lorrie Solis MD [address] [place] [address] PCP - General Internal Medicine 04/03/17 06/13/24 Lorrie Solis MD [address] [place] [address] PCP - [employer] Attributed 02/14/19 03/16/20 Lorrie Solis MD [address] [place] [address] PCP - [employer] Attributed 04/17/20 04/16/23 Lorrie Solis MD [address] [place] [address] PCP - General Internal Medicine 06/28/24 09/23/24 Pcp, No PCP - General General Medicine 09/24/24 Laly Gomez MD [address] [place] [address] Obstetrics and Gynecology 01/01/19 Renee Walker PA [address] [place] [address] Physician Museum Director Medical Oncology 12/17/22 documented as of this encounter
--- OUTSIDE RECORDS SUMMARY | 2024-12-29 15:36 | XMS_ITS | Encounter Summary ---
Author Organization [facility] Address [address] [place] [address] Care Team Providers Care Youth Services Librarian Name Role Phone Lorrie Solis MD Primary Care Provider [phone] Laly Gomez MD Unavailable Lorrie Solis MD Unavailable Renee Walker Unavailable Lorrie Solis MD Primary Care Provider [phone] Pcp, No Primary Care Provider Unavailabl e Encounter Details Date Type Department Care Team (Late st Contact Info) Description 06/13/2022 Scanned Document [facility] Lorrie Solis MD [address] [place] [address] Social History Tobacco Use Types Packs/Day Years [...] on filedocumented in this encounter Care Teams Youth Services Librarian Relationship Specialty Start Date End Date Lorrie Solis MD [address] [place] [address] PCP - General Internal Medicine 04/03/17 06/13/24 Lorrie Solis MD [address] [place] [address] PCP - [employer] Attributed 04/17/20 04/16/23 Lorrie Solis MD [address] [place] [address] PCP - General Internal Medicine 06/28/24 09/23/24 Pcp, No PCP - General General Medicine 09/24/24 Laly Gomez MD [address] [place] [address] Obstetrics and Gynecology 01/01/19 Renee Walker PA [address] [place] [address] Physician Stereo Plotter Operator Medical Oncology 12/17/22 documented as of this encounter
--- OUTSIDE RECORDS SUMMARY | 2024-12-29 15:36 | XMS_ITS | Encounter Summary ---
Author Organization [facility] Address [address] [place] [address] Care Team Providers Care Hearing Aid Assistant Name Role Phone Lorrie Solis MD Primary Care Provider [phone] Laly Gomez MD Unavailable [phone] Lorrie Solis MD Unavailable [phone] Renee Walker Unavailable [phone] Lorrie Solis MD Primary Care Provider [phone]- [phone] Pcp, Amy Primary Care Provider Unavailabl e Reason for Visit * Reason Comments Appointment Advice Only Referral Encounter Details Date Type Department Care Team (Late st Contact Info) Description 11/28/[address] [phone] Lorrie Solis MD [address] [place] [address] Appointment; Advice Only; Referral Social History Tobacco Use Types Packs/Day Years [...] encounter Miscellaneous Notes * Telephone Encounter - Lise Galloway MA - 12/03/2022 8:45 AM EDT Referral placed, Pt contacted and provided information. Pt will cancel appt with Dr. Solis on 12/12/22 at this time. * Telephone Encounter - Lorrie Solis MD - 12/02/2022 2:31 PM EDT Please order referral to [facility] general surgery for gallstones and please provide patient with referral info * Telephone Encounter - Lise Galloway MA - 12/02/2022 1:33 PM EDT Please advise * Telephone Encounter - Veronica Sotelo - 12/02/2022 12:16 PM EDT Pt calling about below * Telephone Encounter - Jodie Yan LPN - 11/28/2022 12:26 PM EDT Spoke with pt, advised of message from provider. Pt states she will stop by after work today. * Telephone Encounter - Lorrie Solis MD - 11/28/2022 11:51 AM EDT If pain is severe and she can not wait till next week to be seen here then she should go to urgent care * Telephone Encounter - Veronica Sotelo - 11/28/2022 11:38 AM EDT Pt stated the pain is in her lower back. I offered pt an appt for 12/04. There were no other appointments with any other provider before this time. Pt stated she doesn't want to wait this long and is asking what to do. Please advise. documented in this encounter Plan of Treatment Not on file documented as of this encounter Goals Goal Patient Goal Type Associated Problems Recent Progress Patient-Stated? Author PT LTG 1 Physical Therapy No [facility] PT Note: Pt will be able to [...] on filedocumented in this encounter Care Teams Hearing Aid Assistant Relationship Specialty Start Date End Date Lorrie Solis MD [address] [place] [address] PCP - General Internal Medicine 04/03/17 06/13/24 Lorrie Solis MD [address] [place] [address] PCP - [employer] Attributed 04/17/20 04/16/23 Lorrie Solis MD [address] [place] [address] PCP - General Internal Medicine 06/28/24 09/23/24 Pcp, No PCP - General General Medicine 09/24/24 Laly Gomez MD [address] [place] [address] Obstetrics and Gynecology 01/01/19 Renee Walker PA [address] [place] [address] Physician Paradichlorobenzene Tender Medical Oncology 12/17/22 documented as of this encounter
--- OUTSIDE RECORDS SUMMARY | 2024-12-29 15:37 | XMS_ITS | Clinical Summary ---
Author Organization [facility] [address] Address [address] [place] [address] Phone Care Team Providers Care Tubing Oiler Name Role Phone Lorrie Solis MD Primary Care Provider [phone] Allergies Active Allergy Reactions Criticality Noted Date Comments Adhesive Rash Low 10/26/2012 Adhesive Tape-Silicones Rash Low 10/26/2012 Latex Itching Low 12/25/2022 Medications buPROPion XL (WELLBUTRIN XL) 300 mg 24 hr tablet TAKE 1 TABLET BY MOUTH ONCE DAILY SWALLOW WHOLE DO NOT CRUSH, CHEW OR DIVIDE 2 Active warfarin (COUMADIN) 2 mg tablet Take 1 tablet (2 mg total) by mouth 1 (one) time each day. In combination with 1mg tablets as directed by provider. 90 each 5 Active Eliquis 5 mg tablet Take 1 tablet by mouth twice daily 60 tablet 2 5 Active betamethasone dipropionate (DIPROSONE) 0.05 % ointmentIndicati ons:External hemorrhoid Apply topically 2 (two) times a day for 10 days. 30 g 5 01/01/20 25 Active Active Problems Problem Noted Date Diagnosed Date On apixaban therapy 04/28/2024 Clinical depression 10/25/2014 Factor 5 Leiden mutation, heterozygous (CMS/HCC V24) 10/25/2014 Overview (11/11/2023): heterozygosity H/O PE 10/26/10; Hypercoagulable state ([facility] V24) 10/25/2014 Anxiety state 2014 Idiopathic scoliosis and kyphoscoliosis 04/27/19 15 Pulmonary embolism ([facility] V24, [facility] V28) Encounters Date Type Department Care Team Description 12/21/2024 11:25 AM EDT - 12/21/2024 3:20 PM EDT Emergency [facility] Emergency [address] [place] [address] External hemorrhoid (Primary Dx) Discharge Disposition: Home or Self Care from Last 3 Months Immunizations Immunization Administration Dates Next Due Pfizer SARS-CoV-2 COVID-19, mRNA, LNP-S, preservative free 03/29/2021 Surgical History Surgery Date Site/Laterality Comments BLADDER SURGERY 2008 PROCEDURE:BLADDER SURGERY HYSTERECTOMY 2009 PROCEDURE:HYSTERECTOMY;COMMENT:partial TUBAL LIGATION PROCEDURE:TUBAL LIGATION Medical History Medical History Date Comments GERD (gastroesophageal reflux disease) DX:GERD (gastroesophageal reflux disease) Depression DX:Depression Anxiety DX:Anxiety Pulmonary embolism ([facility] V24, [facility] V28) DX:Pulmonary embolism (HCC) Factor V Leiden carrier ([facility] V24) DX:Factor V Leiden carrier ([facility]) Family History Medical History Relation Name Comments Colon cancer Father Breast cancer Father's Sister Deep vein thrombosis Father's Sister Clotting disorder Mother Breast cancer Sister Relation Name Status Comments Father Father's Sister Mother Sister Social History Tobacco Use Types Packs/Day Years Used Date Smoking Tobacco: Never Smokeless Tobacco: Never Alcohol Use Standard Drinks/Week Comments No 0 (1 standard drink = 0.6 oz pur e alcohol) Comments No Sex and Gender Information Value Date Recorded Sex Assigned at Female 03/18/2024 8:51 AM EST Legal Sex Female 9:22 PM EST Gender Identity Female 03/18/2024 8:51 AM EST Sexual Orientation Straight 03/18/2024 8: 51 AM EST Obstetrics History Last Filed Vital Signs Vital Sign Reading Time Taken Comments Blood Pressure 109/67 12/21/2024 2:59 PM EDT Pulse 70 12/21/2024 2:59 PM EDT Temperature 36.3 C (97.4 F) 12/21/2024 11:21 AM EDT Respiratory Rate 18 12/21/2024 2:59 PM EDT Oxygen Saturation 100% 12/21/2024 2:59 PM EDT Inhaled Oxygen Concentration - - Weight 74.4 kg (164 lb) 12/21/2024 11:21 AM EDT Height 157.5 cm (5' 2 ) 12/21/2024 11:21 AM EDT Body Mass Index 30 12/21/2024 11:21 AM EDT Plan of Treatment Upcoming Encounters Date Type Department Care Team (Late st Contact Info) Description 06/29/2025 11:20 AM EDT Consult Gastroenterology - [place] [address] [facility] [address] [facility] [address] [place] [address] Keri Richard, PIPE [address] [facility] [address] [place] [address] Health Maintenance Due Date Last Done Comments Breast Cancer Screening 1970 Colorectal Cancer Screening: Colonoscopy 1970 Hepatitis B Vaccines (1 of 3 - 19+ 3-dose series) 1989 Cervical Cancer Screening: P ap Smear 1991 Pneumococcal Vaccine: 50+ Years (1 of 1 - PCV) 2020 RSV Immunization Adult Patients (1 - Risk 50-74 years 1-dose series) 2020 Social Influencers of Health Screening 02/21/2022 Depression Screening 03/17/2024 COVID-19 Vaccine (4 - 2024-2 6 season) 2024 03/29/2021, 07/08/2020, 06/10/2020 Influenza Vaccine (#1) 2024 , 11/18/2018 DTaP,Tdap,and Td Vaccines (3 - Td or Tdap) 04/05/2026 04/05/2016, 02/12/2007 Cholesterol Screening (Lipid Panel) 11/14/2027 11/13/2022, 11/13/2022 Zoster Vaccines Completed 03/06/2023, 11/11/2022 HIV Screening Completed 04/01/2023 Hepatitis C Screening Completed 04/01/2023 HIB Vaccines Aged Out No longer eligi ble based on patient's age to complete this topic HPV Vaccines Aged Out No longer eligi ble based on patient's age to complete this topic Hepatitis A Vaccines Aged Out No long er eligible based on patient's age to complete this topic IPV Vaccines Aged Out No longer eligi ble based on patient's age to complete this topic MMR Vaccines Aged Out No longer eligi ble based on patient's age to complete this topic Meningococcal ACWY Vaccine Aged Out N o longer eligible based on patient's age to complete this topic Meningococcal B Vaccine Aged Out No l onger eligible based on patient's age to complete this topic RSV Immunization Patients Under 20 months Aged Out No longer eligible b ased on patient's age to complete this topic Varicella Vaccines Aged Out No longer eligible based on patient's age to complete this topic Procedures Procedure Name Priority Date/Time Associated Diagnosis Comments CT ABDOMEN PELVIS W CONTRAST STAT 12/21/2024 2:05 PM EDT POC , URINE DIAGNOSTIC STAT 12/21/2024 12:12 PM EDT URINALYSIS WITH REFLEX MICROSCOPIC STAT 12/21/2024 12:08 PM EDT URINALYSIS WITH REFLEX MICROSCOPIC STAT 12/21/2024 12:08 PM EDT BILIRUBIN DUPLICATE PROCEDURE TO ORDER STAT 12/21/2024 11:46 AM EDT CBC WITH AUTO DIFFERENTIAL STAT 12/21/2024 11:46 AM EDT ACTIVATED PARTIAL THROMBOPLASTIN TIME STAT 12/21/2024 11:46 AM EDT PROTHROMBIN TIME WITH INR STAT 12/21/2024 11:46 AM EDT TYPE AND SCREEN STAT 12/21/2024 11:46 AM EDT COMPREHENSIVE METABOLIC PANEL STAT 12/21/2024 11:46 AM EDT CBC AND DIFFERENTIAL STAT 12/21/2024 11:46 AM EDT HEPATITIS C SCREENING Routine 04/01/2023 HIV SCREENING Routine 04/01/2023 LIPID PANEL Routine 11/13/2022 from Last 3 Months or Most Recently Relevant to Health Maintenance Results * CT Abdomen Pelvis w Contrast (12/21/2024 2:05 PM EDT) Anatomical Region Laterality Modality Body Computed Tomogra phy 12/21/2024 2:22 PM EDT Impressions 12/21/2024 2:27 PM EDT No acute findings in the abdomen and pelvis. No evident etiology for hematochezia. -------- FINAL REPORT -------- Dictated By: Bob Hyde Dictated Date: 12/21/2024 14:22 ET Assigned Physician: Bob Hyde Reviewed and Electronically Signed By: Bob Hyde Signed Date: 12/21/2024 14:27 ET Workstation ID: [id number] Transcribed By: Self Edit Transcribed Date: 12/21/2024 14:22 ET Narrative 12/21/2024 2:27 PM EDT PROCEDURE: Contrast enhanced CT of the abdomen and pelvis. HISTORY: hematochezia. COMPARISON: None. TECHNIQUE: Contrast-enhanced CT of the abdomen and pelvis with coronal and sagittal reformats. IV contrast dose: 90 mL ISOVUE-370. Dose length product: 918 mGy-cm. FINDINGS: Lung bases: Dependent layering groundglass opacities suggestive of atelectasis and/or scarring. Cardiac: Normal heart size. Mild coronary artery calcification. Liver: No focal lesion. Portal veins are patent. Biliary: Cholecystectomy. Pancreas: Normal. Spleen: Normal. Adrenal glands: Normal. Kidneys: Normal. Normal appearance of the ureters. Retroperitoneum: No mass or adenopathy. Abdominal vasculature: Circumaortic left renal vein. Bowel/mesentery: No obstruction or adenopathy. No mass or ascites. Scattered colonic diverticula. Normal appendix. Abdominal wall: Small fat-containing paraumbilical hernia. Pelvic nodes: No adenopathy. Pelvic organs: Hysterectomy. Bones: Mild degenerative changes of the spine. Procedure Note Bob Hyde MD - 12/21/2024 PROCEDURE: Contrast enhanced CT of the abdomen and pelvis. HISTORY: hematochezia. COMPARISON: None. TECHNIQUE: Contrast-enhanced CT of the abdomen and pelvis with coronal andsagittal reformats. IV contrast dose: 90 mL ISOVUE-370. Dose length product: 918 mGy-cm. FINDINGS: Lung bases: Dependent layering groundglass opacities suggestive ofatelectasis and/or scarring. Cardiac: Normal heart size. Mild coronary artery calcification. Liver: No focal lesion. Portal veins are patent. Biliary: Cholecystectomy. Pancreas: Normal. Spleen: Normal. Adrenal glands: Normal. Kidneys: Normal. Normal appearance of the ureters. Retroperitoneum: No mass or adenopathy. Abdominal vasculature: Circumaortic left renal vein. Bowel/mesentery: No obstruction or adenopathy. No mass or ascites.Scattered colonic diverticula. Normal appendix. Abdominal wall: Small fat-containing paraumbilical hernia. Pelvic nodes: No adenopathy. Pelvic organs: Hysterectomy. Bones: Mild degenerative changes of the spine. IMPRESSION: No acute findings in the abdomen and pelvis. No evident etiology forhematochezia. -------- FINAL REPORT -------- Dictated By: Bob Hyde Dictated Date: 12/21/2024 14:22 ET Assigned Physician: Bob Hyde Reviewed and Electronically Signed By: Bob Hyde Signed Date: 12/21/2024 14:27 ET Workstation ID: [id number] Transcribed By: Self Edit Transcribed Date: 12/21/2024 14:22 ET Buddy PETERS IM CT PROCEDURES Final R esult * POC , urine manually resulted (12/21/2024 12:12 PM EDT) HCG, Ur POC Negative Negative POC hCG Int QC Pass? Yes Yes EXPIRATION DATE POC 05/04/2026 LOT NUMBER POC [id number] Urine Urine specimen obtained by clean catch procedure / Unknown 12/21/2024 12:12 PM EDT Buddy PETERS POINT OF CARE TEST ENTER/ EDIT ORDERABLES Final Result * (ABNORMAL) Urinalysis with reflex microscopic (12/21/2024 12:08 PM EDT) Specific [place] Urine 1.022 1.003 - 1.030 LAB URINALYSIS - AUTOMATED METHOD 12/21/2024 12:27 PM [facility] pH, Urine 5.5 5.0 - 8.0 pH LAB URINALYSIS - AUTOMATED METHOD 12/21/2024 12:27 PM [facility] Leukocytes, Urine Trace(A) Negative LAB URINALYSIS - AUTOMATED METHOD 12/21/2024 12:27 PM [facility] Nitrite, Urine Negative Negative LAB URINALYSIS - AUTOMATED METHOD 12/21/2024 12:27 PM [facility] Protein, Urine Negative <=Trace mg/dL LAB URINALYSIS - AUTOMATED METHOD 12/21/2024 12:27 PM [facility] Glucose, Urine Negative Negative mg/dL LAB URINALYSIS - AUTOMATED METHOD 12/21/2024 12:27 PM [facility] Ketones, Urine Negative Negative mg/dL LAB URINALYSIS - AUTOMATED METHOD 12/21/2024 12:27 PM [facility] Urobilinogen , Urine 0.2 0.2 - 1.0 mg/dL LAB URINALYSIS - AUTOMATED METHOD 12/21/2024 12:27 PM [facility] Bilirubin, Urine Negative Negative LAB URINALYSIS - AUTOMATED METHOD 12/21/2024 12:27 PM [facility] Blood, Urine Negative Negative LAB URINALYSIS - AUTOMATED METHOD 12/21/2024 12:27 PM [facility] RBC, Urine 3.2 0 - 4 /HPF LAB URINALYSIS - AUTOMATED METHOD 12/21/2024 12:27 PM EDT [facility] WBC, Urine 4.6(H) 0 - 4 /HPF LAB URINALYSIS - AUTOMATED METHOD 12/21/2024 12:27 PM EDT [facility] Squamous Epithelial, Urine 22 0 - 60 /LPF LAB URINALYSIS - AUTOMATED METHOD 12/21/2024 12:27 PM EDT [facility] Bacteria, Urine Moderate(A) Negative /HPF LAB URINALYSIS - AUTOMATED METHOD 12/21/2024 12:27 PM EDT [facility] Hyaline Casts, Urine 1.6 0 - 3 /LPF LAB URINALYSIS - AUTOMATED METHOD 12/21/2024 12:27 PM EDT [facility] Urine Urine specimen obtained by clean catch procedure / Unknown Non-blood Collection / Unknown 12/21/2024 12:08 PM EDT 12/21/2024 12:16 PM EDT us Buddy PETERS LAB URINE ORDERABLES Yara l Result [facility] [address] [place] [address], * Bilirubin duplicate procedure to order (12/21/2024 11:46 AM EDT) Total Bilirubin 0.4 0.0 - 1.4 mg/dL LAB CHEMISTRY METHOD 12/21/2024 12:56 PM EDT [facility] Bilirubin, Direct 0.1 0.0 - 0.3 mg/dL LAB CHEMISTRY METHOD 12/21/2024 12:56 PM EDT [facility] Bilirubin, Indirect 0.3 0.0 - 1.1 mg/dL LAB CHEMISTRY METHOD 12/21/2024 12:56 PM EDT [facility] Blood Venous blood specimen / Unknown Venipuncture / Unknown 12/21/2024 11:46 AM EDT 12/21/2024 12:02 PM EDT us Yousuf Langley MD LAB BLOOD ORDERABLES Yara keith Result [facility] [address] [place] [address], [place] [phone] * CBC auto differential (12/21/2024 11:46 AM EDT) WBC 5.6 4.8 - 10.8 K/mcL LAB HEMETOLOGY METHOD 12/21/2024 12:16 PM EDT [facility] RBC 4.60 3.80 - 4.80 M/mcL LAB HEMETOLOGY METHOD 12/21/2024 12:16 PM EDT [facility] Hemoglobin 14.4 11.5 - 16.0 g/dL LAB HEMETOLOGY METHOD 12/21/2024 12:16 PM EDT [facility] Hematocrit 43.4 35.0 - 47.0 % LAB HEMETOLOGY METHOD 12/21/2024 12:16 PM EDT [facility] MCV 93.9 79.0 - 98.0 FL LAB HEMETOLOGY METHOD 12/21/2024 12:16 PM EDT [facility] MCH 31.2 27.0 - 32.0 pcg LAB HEMETOLOGY METHOD 12/21/2024 12:16 PM EDT [facility] MCHC 33.2 32.0 - 37.0 g/dL LAB HEMETOLOGY METHOD 12/21/2024 12:16 PM EDT [facility] RDW 12.7 11.0 - 15.0 % LAB HEMETOLOGY METHOD 12/21/2024 12:16 PM EDT [facility] Platelets 303 130 - 400 K/mcL LAB HEMETOLOGY METHOD 12/21/2024 12:16 PM EDT [facility] MPV 9.8 7.0 - 11.0 FL LAB HEMETOLOGY METHOD 12/21/2024 12:16 PM [facility] NRBC 0.0 <1.0 % LAB HEMETOLOGY METHOD 12/21/2024 12:16 PM [facility] NRBC Absolute 0.00 <0.10 K/mcL LAB HEMETOLOGY METHOD 12/21/2024 12:16 PM [facility] Neutrophils Relative 48.9 % LAB HEMETOLOGY METHOD 12/21/2024 12:16 PM [facility] Lymphocytes Relative 41.9 % LAB HEMETOLOGY METHOD 12/21/2024 12:16 PM [facility] Monocytes Relative 6.8 % LAB HEMETOLOGY METHOD 12/21/2024 12:16 PM [facility] Eosinophils Relative 0.7 % LAB HEMETOLOGY METHOD 12/21/2024 12:16 PM [facility] Basophils Relative 1.3 % LAB HEMETOLOGY METHOD 12/21/2024 12:16 PM [facility] Immature Granulocytes Relative 0.4 % LAB HEMETOLOGY METHOD 12/21/2024 12:16 PM [facility] Neutrophils Absolute 2.72 1.50 - 7.00 K/mcL LAB HEMETOLOGY METHOD 12/21/2024 12:16 PM [facility] Lymphocytes Absolute 2.33 1.00 - 5.00 K/mcL LAB HEMETOLOGY METHOD 12/21/2024 12:16 PM [facility] Monocytes Absolute 0.38 0.20 - 1.00 K/mcL LAB HEMETOLOGY METHOD 12/21/2024 12:16 PM [facility] Eosinophils Absolute 0.04 0.00 - 0.50 K/mcL LAB HEMETOLOGY METHOD 12/21/2024 12:16 PM [facility] Basophils Absolute 0.07 0.00 - 0.20 K/[facility] LAB HEMETOLOGY METHOD 12/21/2024 12:16 PM EDT [facility] Immature Granulocytes Absolute 0.02 0.00 - 0.03 K/[facility] LAB HEMETOLOGY METHOD 12/21/2024 12:16 PM EDT [facility] Blood Venous blood specimen / Unknown Venipuncture / Unknown 12/21/2024 11:46 AM EDT 12/21/2024 12:02 PM EDT Yousuf Langley MD LAB BLOOD ORDERABLES Yara l Result Performing Organization Address [facility]/ZIP Co de Phone Number [facility] [address] [place] [address], [place] [phone] * Activated partial thromboplastin time (12/21/2024 11:46 AM EDT) aPTT 35.6 24.1 - 39.3 sec LAB COAGULATION METHOD 12/21/2024 12:20 PM EDT [facility] Blood Venous blood specimen / Unknown Venipuncture / Unknown 12/21/2024 11:46 AM EDT 12/21/2024 12:02 PM EDT Yousuf Langley MD LAB BLOOD ORDERABLES Yara l Result [facility] [address] [place] [address], [place] [phone] * (ABNORMAL) Prothrombin time with INR (12/21/2024 11:46 AM EDT) Protime 14.3(H) 10.6 - 13.9 sec LAB COAGULATION METHOD 12/21/2024 12:20 PM EDT [facility] INR 1.1 LAB COAGULATION METHOD 12/21/2024 12:20 PM EDT [facility] Blood Venous blood specimen / Unknown Venipuncture / Unknown 12/21/2024 11:46 AM EDT 12/21/2024 12:02 PM EDT Yousuf Langley MD LAB BLOOD ORDERABLES Yara l Result Performing Organization Address [facility]/ZIP Co de Phone Number [facility] [address] [place] [address], [place] [phone] * Type and screen (12/21/2024 11:46 AM EDT) Pathologist [facility] 12/21/2024 12:57 PM EDT [facility] Rh Type Negative 12/21/2024 12:57 PM EDT [facility] Antibody Screen Negative 12/21/2024 12:57 PM EDT [facility] Blood Venous blood specimen / Unknown Venipuncture / Unknown 12/21/2024 11:46 AM EDT 12/21/2024 12:02 PM EDT Yousuf Langley MD LAB BLOOD BANK TEST ORDER BREANN Final Result Performing Organization Address [facility] Co de Phone Number [facility] [address] [place] [address], [place] [phone] * Comprehensive metabolic panel (12/21/2024 11:46 AM EDT) Sodium 140 133 - 145 mmol/L LAB CHEMISTRY METHOD 12/21/2024 12:56 PM EDT [facility] Potassium 4.0 3.5 - 5.5 mmol/L LAB CHEMISTRY METHOD 12/21/2024 12:56 PM EDT [facility] Chloride 108 96 - 110 mmol/L LAB CHEMISTRY METHOD 12/21/2024 12:56 PM EDT [facility] CO2 26 21 - 32 mmol/L LAB CHEMISTRY METHOD 12/21/2024 12:56 PM [facility] Anion Gap 6 3 - 11 LAB CHEMISTRY METHOD 12/21/2024 12:56 PM [facility] Glucose 77 70 - 100 mg/dL LAB CHEMISTRY METHOD 12/21/2024 12:56 PM [facility] BUN 16 5 - 25 mg/dL LAB CHEMISTRY METHOD 12/21/2024 12:56 PM [facility] Creatinine 0.90 0.50 - 1.10 mg/dL LAB CHEMISTRY METHOD 12/21/2024 12:56 PM [facility] eGFR 76 >=60 mL/min/1. 73m2 LAB CHEMISTRY METHOD 12/21/2024 12:56 PM [facility] Comment:Calculation based on the Chronic Kidney Disease Epidemiology Collaboration (CKD-EPI) equation refit without adjustment for race. BUN/Creatinine Ratio 17.8 LAB CHEMISTRY METHOD 12/21/2024 12:56 PM [facility] Calcium 9.6 8.5 - 10.5 mg/dL LAB CHEMISTRY METHOD 12/21/2024 12:56 PM [facility] AST (SGOT) 17 10 - 42 unit/L LAB CHEMISTRY METHOD 12/21/2024 12:56 PM [facility] ALT (SGPT) 24 10 - 60 unit/L LAB CHEMISTRY METHOD 12/21/2024 12:56 PM [facility] Alkaline Phosphatase 77 42 - 121 unit/L LAB CHEMISTRY METHOD 12/21/2024 12:56 PM [facility] Total Protein 7.4 6.0 - 8.0 g/dL LAB CHEMISTRY METHOD 12/21/2024 12:56 PM [facility] Albumin 3.9 3.2 - 5.0 g/dL LAB CHEMISTRY METHOD 12/21/2024 12:56 PM [facility] Total Bilirubin 0.4 0.0 - 1.4 mg/dL LAB CHEMISTRY METHOD 12/21/2024 12:56 PM EDT [facility] Blood Venous blood specimen / Unknown Venipuncture / Unknown 12/21/2024 11:46 AM EDT 12/21/2024 12:02 PM EDT Yousuf Langley MD LAB BLOOD ORDERABLES Yara l Result [facility] [address] [place] [address], * HIV Screening (04/01/2023) HIV Screening abstracted Historical Provider HEALTH MAINTENANCE Final Result * Hepatitis C Screening (04/01/2023) Pathologist [facility] Hepatitis C Screening abstracted Historical Provider HEALTH MAINTENANCE Final Result * (ABNORMAL) Lipid panel (11/13/2022) Triglycerides 172(A) <=150 mg/dL Cholesterol 188 0 - 200 mg/dL HDL 46 37 - 92 mg/dL LDL Cholesterol 108 50 - 130 mg/dL Blood Venous blood specimen / Unknown Historical Leonor GARCIA LAB BLOOD ORDERABLES Yara l Result from Last 3 Months or Most Recently Relevant to Health Maintenance Insurance [employer] Care Teams Tubing Oiler Relationship Specialty Start Date End Date Lorrie Solis MD [address] [place] [address] PCP - General 06/12/22
--- OUTSIDE RECORDS SUMMARY | 2024-12-29 15:37 | XMS_ITS | Encounter Summary ---
Author Organization [facility] Address [address] [place] [address] Care Team Providers Care Western Philosophy Professor Name Role Phone Mercy Bunch MD Primary Care Provider Thelma Camp Primary Care Provider Lorrie Solis MD Primary Care Provider [phone] Laly Gomez MD Unavailable [phone] Lorrie Solis MD Unavailable Lorrie Solis MD Unavailable Renee Walker Unavailable Lorrie Solis MD Primary Care Provider [phone] Pcp, No Primary Care Provider Unavailabl e Encounter Details Date Type Department Care Team (Late st Contact Info) Description 05/18/2014 Scanned Document [address] [place] [id number] Provider, Generic Social History Tobacco Use Types Packs/Day Years Used Date Smoking Tobacco: Never Assessed Comments Unknown Sex and Gender Information Value Date Recorded Sex Assigned at Female 08/07/2022 12:03 PM EDT Legal Sex Female 3:32 PM EDT Gender Identity Female 08/07/2022 12:03 PM EDT Sexual Orientation Heterosexual (straight) 08/07 12:03 PM EDT documented as of this encounter Plan of Treatment Not on file documented as of this encounter Procedures Procedure Name Priority Date/Time Associated Diagnosis Comments IMAGING BREAST/BX/MAMMO 05/18/2014 documented in this encounter Results * IMAGING BREAST/BX/MAMMO (05/18/2014) Anatomical Region Laterality Modality Other Narrative 09/09/2016 2:12 AM EDT Ordered by an unspecified provider. us Generic Provider IMG LEGACY PROCEDURES Edited Re sult - Final documented in this encounter Visit Diagnoses Not on filedocumented in this encounter Care Teams Western Philosophy Professor Relationship Specialty Start Date End Date Mercy Bunch MD PCP - General Internal Medicine 10/20/14 11/02/15 Thelma Camp PA PCP - General Internal Medicine 11/03/15 04/02/17 Lorrie Solis MD [address] [place] [address] PCP - General Internal Medicine 04/03/17 06/13/24 Lorrie Solis MD [address] [place] [address] PCP - [employer] Attributed 02/14/19 03/16/20 Lorrie Solis MD [address] [place] [address] PCP - [employer] Attributed 04/17/20 04/16/23 Lorrie Solis MD [address] [place] [address] PCP - General Internal Medicine 06/28/24 09/23/24 Pcp, No PCP - General General Medicine 09/24/24 Laly Gomez MD [address] [place] [address] Obstetrics and Gynecology 01/01/19 Renee Walker PA [address] [place] [id number] Physician Manager Respiratory Care Medical Oncology 12/17/22 documented as of this encounter
--- OUTSIDE RECORDS SUMMARY | 2024-12-29 15:37 | XMS_ITS | Encounter Summary ---
Author Organization [facility] Address [address] [place] [address] Care Team Providers Care Invoice Machine Operator Name Role Phone Laly Gomez MD Unavailable [phone] Renee Walker Unavailable Pcp, No Primary Care Provider Unavailabl e Reason for Visit * Reason Comments Medication Refill Encounter Details Date Type Department Care Team (Late st Contact Info) Description 12/11/[address] [phone] Lorrie Solis MD [address] [facility] [address] [place], [place] [id number] Depression, unspecified depression type Social History Tobacco [...] encounter Miscellaneous Notes * Telephone Encounter - Elizabeth Smith - 12/13/2024 8:03 AM EDT Pt transferred out of our practice documented in this encounter Plan of Treatment [...] type documented in this encounter Care Teams Invoice Machine Operator Relationship Specialty Start Date End Date Pcp, No PCP - General General Medicine 09/24/24 Laly Gomez MD [address] [place] [address] Obstetrics and Gynecology 01/01/19 Renee Walker PA [address] [place] [id number] Physician Information Writer Medical Oncology 12/17/22 documented as of this encounter
--- OUTSIDE RECORDS SUMMARY | 2024-12-29 15:37 | XMS_ITS | Encounter Summary ---
Author Organization [facility] Address [address] [place] [address] Care Team Providers Care Venetian Blind Machine Operator Name Role Phone Thelma Camp Primary Care Provider [phone] Lorrie Solis MD Primary Care Provider [phone] Laly Gomez MD Unavailable [phone] Lorrie Solis MD Unavailable Lorrie Solis MD Unavailable [phone] Renee Walker Unavailable Lorrie Solis MD Primary Care Provider [phone] Pcp, No Primary Care Provider Unavailabl e Reason for Visit * Reason Comments Medication Refill Encounter Details Date Type Department Care Team (Late st Contact Info) Description 11/29/2016 Refill [facility] [address] [phone] Thelma Camp PA [address] [address] Depression, unspecified depression type Social History Tobacco [...] type documented in this encounter Care Teams Venetian Blind Machine Operator Relationship Specialty Start Date End Date Thelma Camp PA PCP - General Internal Medicine 11/03/15 04/02/17 Lorrie Solis MD [address] [place] [address] PCP - General Internal Medicine 04/03/17 06/13/24 Lorrie Solis MD [address] [place] [address] PCP - [employer] Commercial Attributed 02/14/19 03/16/20 Lorrie Solis MD [address] [place] [address] PCP - [employer] Commercial Attributed 04/17/20 04/16/23 Lorrie Solis MD [address] [place] [address] PCP - General Internal Medicine 06/28/24 09/23/24 Pcp, No PCP - General General Medicine 09/24/24 Laly Gomez MD [address] [place] [address] Obstetrics and Gynecology 01/01/19 Renee Walker PA [address] [place] [address] Physician Csr Retail Medical Oncology 12/17/22 documented as of this encounter
--- OUTSIDE RECORDS SUMMARY | 2024-12-29 15:37 | XMS_ITS | Clinical Summary ---
Author Organization [facility] Address [address] [place] [address] Care Team Providers Care Portrait Artist Name Role Phone Laly Gomez MD Unavailable [phone] Renee Walker Unavailable [phone] Pcp, No Primary Care Provider Unavailabl e Allergies Active Allergy Reactions Criticality Noted Date Comments Adhesives/Tape Rash/Dermatitis Low 10/26/2012 Latex Itching Low 12/25/2022 Medications warfarin (COUMADIN) 1 MG tablet Take 2 tablets (2 mg total) by mouth nightly. 1 Active warfarin (COUMADIN) 5 MG tablet Take 1 tablet (5 mg total) by mouth daily as needed. 1 Active acetaminophen (TYLENOL) 500 MG tabletIndications: Symptomatic cholelithiasis Take 1 tablet (500 mg total) by mouth 4 times daily (every 6 hours) as needed for mild pain. 3 Active Olopatadine HCl (Pataday) 0.2 % Solution ophthalmic solutionIndication s:Irritation of right eye Administer 1 drop to the right eye daily. 2.5 mL 4 Active buPROPion (WELLBUTRIN XL) 300 MG 24 hr tabletIndications: Depression, unspecified depression type Take 1 tablet by mouth nightly 90 tablet 5 Active Active Problems Problem Noted Date Diagnosed Date Fibromuscular dysplasia 07/02/2023 Overweight (BMI 25.0-29.9) 12/18/2022 Assessment & Plan (12/18/2022 8:49 AM EDT): BMI 29.26. Lifestyle modifications, diet, and exercise. Symptomatic cholelithiasis 12/10/2022 Cervicalgia 02/14/2022 Weakness 02/14/2022 Right shoulder pain 02/14/2022 Depression 10/25/2014 Assessment & Plan (12/18/2022 9:52 AM EDT): Managed by medications prescribed by Lorrie oSlis MD. Patient denies suicidal or homicidal ideation. Continue current medication regimen as prescribed. Patient to follow up with provider as previously directed. Factor 5 Leiden mutation, heterozygous 5 Overview (09/04/2017): Overview: heterozygosity H/O PE 10/26/10; Overview: heterozygosity H/O PE 10/26/10; Assessment & Plan (12/18/2022 9:56 AM EDT): Heterozygous factor V leiden. On manager intermediate warfarin with INR goal 2.0 - 3.0. Last PT/INR 3.9 12/17/2022. She will be bridging per Hematology / Oncology at [facility]. Patient states that she is working with Hematology on her bridging of Lovenox and they will be ordering her Lovenox injections and tell her when to stop Warfin and start the Lovenox. Contacted [facility] for copy of the plan. Continue with plan of care and follow up as previously directed for further management and treatment. 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 Managed with coumadin. Followed by Hematology / Oncology at [facility]. FRAN Noel. Continue with plan of care and follow up as previusly directed for further management and treatment. Resolved Problems Problem Noted Date Diagnosed Date Resolved Date Routine general medical exam ination at a health care facility 10/25/2014 02/10/2024 Encounters Date Type Department Care Team Description 12/16/[address] [place] [address] Lorrie Solis MD Depression, unspecified depression type 12/11/[address] [place] [address] Lorrie Solis MD Depression, unspecified depression type from Last 3 Months Immunizations Immunization Administration Dates Next Due Influenza Inactivated/Split Preservative Free IM 11/18/2018 Influenza, Quadrivalent (FLU CELVAX) MDCK, Preservative Free IM 11/18/2018 Influenza, Unspecified 01/04/2020,11/18/2018 Tdap 04/05/2016,02/12/2007 Zoster Vaccine Recombinant (Shingrix) 03/06/2023 ,11/11/2022 Family History Medical History Relation Name Comments Diabetes Father takes insulin Hyperlipidemia Father Hypertension Father Alzheimer's disease Maternal Grandmother Factor V Leiden deficiency Mother Hyperlipidemia Mother Hypertension Mother Breast cancer Paternal Aunt both aunts Relation Name Status Comments Brother 1 Alive 1/2 Brother 2 Alive 1/2 Daughter Alive Father Alive Maternal Grandmother Mother Alive Paternal Aunt both aunts Sister Alive 1/2 sibling Son Alive Social History Tobacco Use Types Packs/Day Years Used Date Smoking Tobacco: Never Smokeless Tobacco: Never Tobacco Cessation:Counseling Given: Not Answered Alcohol Use Standard Drinks/Week Comments No 0 [...] Sign Reading Time Taken Comments Blood Pressure 144/99 02/21/2024 11:15 AM EST Pulse 65 02/21/2024 11:15 AM EST Temperature 37.2 C (98.9 F) 02/21/2024 11:15 AM EST Respiratory Rate 18 02/21/2024 11:15 AM EST Oxygen Saturation 97% 02/21/2024 11:15 AM EST Inhaled Oxygen Concentration - - Weight 68 kg (150 lb) 02/21/2024 11:15 AM EST Height 157.5 cm (5' 2 ) 02/21/2024 11:15 AM EST Body Mass Index 27.44 02/21/2024 11:15 AM EST Plan of Treatment Health Maintenance Due Date Last Done Comments Hepatitis B Vaccines (1 of 3 - 19+ 3-dose series) 1989 Pneumococcal Vaccines 50+ (1 of 1 - PCV) 2020 RSV Vaccine 50 years and old er and Patients (1 - Risk 50-74 years 1-dose series) 2020 Mammogram 04/15/2024 04/15/2022, 12/16, 01/09/2019, Additional history exists Influenza Vaccine 10/15/2024 01/04/2020, , 11/18/2018, Additional history exists COVID-19 Vaccine (2024-2 6 season) 2024 03/29/2021, 07/08/2020, 06/10/2020 DTaP/Tdap/Td Vaccines (3 - T d or Tdap) 04/05/2026 04/05/2016, 02/12/2007 Colonoscopy 04/19/2031 04/19/2021 (Prev iously Completed) Zoster (Shingles) Vaccine Completed 03/06/2023, HIV Screening Completed 04/01/2023, 04/01/2023 Hepatitis C Virus Screening Completed 04/01/2023 Pap Smear (Ages 21-65) Discontinued Goals Goal Patient Goal Type Associated Problems [...] be independent in HEP within 1 week.COMPLETE Procedures Procedure Name Priority Date/Time Associated Diagnosis Comments HIV 1/2 AG/AB CMIA REFLEX TO CONFIRMATION Routine 04/01/2023 Screening for HIV (human immunodeficiency virus) HEPATITIS C VIRUS (HCV) ANTIBODY Routine 04/01/2023 Need for hepatitis C screening test MG SCREENING DIGITAL BREAST ROMY- BILATERAL Routine 04/15/2022 7:09 AM EST from Last 3 Months or Most Recently Relevant to Health Maintenance Results * HIV 1/2 Ag/Ab CMIA Reflex to Confirmation (04/01/2023) Blood specimen (specimen) 04/01/2023 Lorrie Solis MD LAB BLOOD ORDERABLES Final Result Performing Organization Address City/State/[facility] Co de Phone Number [facility] * HEPATITIS C VIRUS (HCV) ANTIBODY (04/01/2023) Blood specimen (specimen) 04/01/2023 Lorrie Solis MD LAB BLOOD ORDERABLES Final Result [facility] * MG SCREENING DIGITAL BREAST ROMY- BILATERAL (04/15/2022 7:09 AM EST) Anatomical Region Laterality Modality Other 03/28/2022 4:45 PM EST 03/28/2022 4:45 PM EST Impressions 04/15/2022 7:09 AM EST There is no mammographic evidence of malignancy. Routine follow-up mammogram in 1 year is recommended. The patient will receive a lay summary of the results of this breast imaging exam. Lay summaries for mammography examinations will also identify the patients personal breast tissue composition as required by state law. BIRADS Category 1: Negative Thank you for referring your patient to us, Andrew Dumont MD [id number] (Electronically Signed - 04/15/2022 07:09) Narrative 04/15/2022 7:09 AM EST HISTORY: Patient is 51 years old and is seen for screening. The patient has no personal history of breast or ovarian cancer. The patient has the following family history of breast cancer: paternal aunt; paternal aunt, breast cancer and paternal aunt, breast cancer. FILMS COMPARED: The present examination has been compared to prior imaging studies dated 01/09/2019, 01/01/2018, 05/15/2016 and 05/18/2014. ROMY STATEMENT: Computer-aided detection was utilized by the radiologist in the interpretation of this examination. 3D tomosynthesis digital mammographic images were obtained using standard projections. MAMMOGRAM FINDINGS: The breasts are heterogeneously dense, which may obscure small masses. (ACR BIRADS density Category c) * No suspicious masses, calcifications or other abnormalities are seen in either breast. Procedure Note Andrew Dumont MD - 04/15/2022 HISTORY: Patient is 51 years old and is seen for screening. The patient has no personal history of breast or ovarian cancer. The patient has the following family history of breast cancer: paternalaunt; paternal aunt, breast cancer and paternal aunt, breast cancer. FILMS COMPARED: The present examination has been compared to prior imaging studies dated1, 01/01/2018, 05/15/2016 and 05/18/2014. ROMY STATEMENT: Computer-aided detection was utilized by the radiologist in theinterpretation of this examination. 3D tomosynthesis digital mammographic images were obtained using standardprojections. MAMMOGRAM FINDINGS: The breasts are heterogeneously dense, which may obscure small masses.(ACR BIRADS density Category c) * No suspicious masses, calcifications or other abnormalities are seen ineither breast. IMPRESSION: There is no mammographic evidence of malignancy. Routine follow-up mammogram in 1 year is recommended. The patient will receive a lay summary of the results of this breastimaging exam. Lay summaries for mammography examinations will alsoidentify the patients personal breast tissue composition as required [facility] law. BIRADS Category 1: Negative Thank you for referring your patient to us, Andrew Dumont MD [id number] (Electronically Signed - 04/15/2022 07:09) Lorrie Solis MD IM LEGACY PROCEDURES Yara l Result from Last 3 Months or Most Recently Relevant to Health Maintenance Insurance [employer] INDIVIDUAL EXCHANGE PPO [employer] INDIVIDUAL ON EXCHANGE [employer] INDIVIDUAL EXCHANGE PPO [facility] PPO [facility] INDIVIDUAL ON EXCHANGE Advance Directives * Full Code (Latest Code Status on File) Date Activated Date Inactivated Comments 12/25/2022 5:16 AM Care Teams Portrait Artist Relationship Specialty Start Date End Date Pcp, No PCP - General General Medicine 09/24/24 Laly Gomez MD [address] [place] [address] Obstetrics and Gynecology 01/01/19 Renee Walker PA [address] [place] [address] Physician Insulation Sprayer Medical Oncology 12/17/22
--- OUTSIDE RECORDS SUMMARY | 2024-12-29 15:37 | XMS_ITS | Encounter Summary ---
Author Organization [facility] Address [address] [place] [address] Care Team Providers Care Ovens Supervisor Name Role Phone Thelma Camp Primary Care Provider Lorrie Solis MD Primary Care Provider [phone] Laly Gomez MD Unavailable Lorrie Solis MD Unavailable Lorrie Solis MD Unavailable Renee Walker Unavailable Lorrie Solis MD Primary Care Provider [phone] Pcp, No Primary Care Provider Unavailabl e Encounter Details Date Type Department Care Team (Late st Contact Info) Description 03/14/2017 Scanned Document [address] [place] [phone] Provider, Generic Social History Tobacco Use [...] on filedocumented in this encounter Care Teams Ovens Supervisor Relationship Specialty Start Date End Date Thelma Camp PA PCP - General Internal Medicine 11/03/15 04/02/17 Lorrie Solis MD [address] [place] [address] PCP - General Internal Medicine 04/03/17 06/13/24 Lorrie Solis MD [address] [place] [address] PCP - [employer] Attributed 02/14/19 03/16/20 Lorrie Solis MD [address] [place] [address] PCP - [employer] Commercial Attributed 04/17/20 04/16/23 Lorrie Solis MD [address] [place] [address] PCP - General Internal Medicine 06/28/24 09/23/24 Pcp, No PCP - General General Medicine 09/24/24 Laly Gomez MD [address] [place] [address] Obstetrics and Gynecology 01/01/19 Renee Walker PA [address] [place] [address] Physician Cannon Pinion Adjuster Medical Oncology 12/17/22 documented as of this encounter
--- OUTSIDE RECORDS SUMMARY | 2024-12-29 15:37 | XMS_ITS | Encounter Summary ---
Author Organization [facility] Address [address] [place] [address] Care Team Providers Care Barber Instructor Name Role Phone Lorrie Solis MD Primary Care Provider [phone] Laly Gomez MD Unavailable [phone] Lorrie Solis MD Unavailable [phone] Lorrie Solis MD Unavailable [phone] Renee Walker Unavailable [phone] Lorrie Solis MD Primary Care Provider + [phone] Pcp, Amy Primary Care Provider Unavailabl e Reason for Visit * Reason Comments Medication Refill Encounter Details Date Type Department Care Team (Late st Contact Info) Description 05/28/[address] [phone] Thelma Camp PA 100 [facility] [address] [place] [address] Depression, unspecified depression type Social History Tobacco [...] type documented in this encounter Care Teams Barber Instructor Relationship Specialty Start Date End Date Lorrie Solis MD [address] [place] [address] PCP - General Internal Medicine 04/03/17 06/13/24 Lorrie Solis MD [address] [place] [address] PCP - [employer] Attributed 02/14/19 03/16/20 Lorrie Solis MD [address] [place] [address] PCP - [employer] Commercial Attributed 04/17/20 04/16/23 Lorrie Solis MD [address] [place] [address] PCP - General Internal Medicine 06/28/24 09/23/24 Pcp, No PCP - General General Medicine 09/24/24 Laly Gomez MD [address] [place] [address] Obstetrics and Gynecology 01/01/19 Renee Walker PA [address] [place] [address] Physician Drafter Apprentice Medical Oncology 12/17/22 documented as of this encounter
--- OUTSIDE RECORDS SUMMARY | 2024-12-29 15:37 | XMS_ITS | Encounter Summary ---
Author Organization [facility] Address [address] [place] [address] Care Team Providers Care Trade Specialist Name Role Phone Thelma Camp Primary Care Provider Lorrie Solis MD Primary Care Provider [phone] Laly Gomez MD Unavailable Lorrie Solis MD Unavailable [phone] Lorrie Solis MD Unavailable Renee Walker Unavailable Lorrie Solis MD Primary Care Provider [phone] Pcp, No Primary Care Provider Unavailabl e Encounter Details Date Type Department Care Team (Late st Contact Info) Description 09/06/2016 Scanned Document [address] [place] [phone] Provider, Generic Social History Tobacco Use [...] on filedocumented in this encounter Care Teams Trade Specialist Relationship Specialty Start Date End Date Thelma Camp PA PCP - General Internal Medicine 11/03/15 04/02/17 Lorrie Solis MD [address] [place] [address] PCP - General Internal Medicine 04/03/17 06/13/24 Lorrie Solis MD [address] [place] [address] PCP - [employer] Commercial Attributed 02/14/19 03/16/20 Lorrie Solis MD [address] [place] [address] PCP - [employer] Commercial Attributed 04/17/20 04/16/23 Lorrie Solis MD [address] [place] [address] PCP - General Internal Medicine 06/28/24 09/23/24 Pcp, No PCP - General General Medicine 09/24/24 Laly Gomez MD [address] [place] [address] Obstetrics and Gynecology 01/01/19 Renee Walker PA [address] [place] [address] Physician Apple Turner Medical Oncology 12/17/22 documented as of this encounter
--- OUTSIDE RECORDS SUMMARY | 2024-12-29 15:37 | XMS_ITS | Encounter Summary ---
Author Organization [facility] Address [address] [place] [address] Care Team Providers Care Cement Patcher Name Role Phone Mercy Bunch MD Primary Care Provider Thelma Camp Primary Care Provider Lorrie Solis MD Primary Care Provider [phone] Laly Gomez MD Unavailable Lorrie Solis MD Unavailable Lorrie Solis MD Unavailable Renee Walker Unavailable Lorrie Solis MD Primary Care Provider [phone] Pcp, No Primary Care Provider Unavailabl e Encounter Details Date Type Department Care Team (Late st Contact Info) Description 10/25/2014 Scanned Document [address] [place] [phone] Provider, Generic Social History Tobacco Use Types [...] on filedocumented in this encounter Care Teams Cement Patcher Relationship Specialty Start Date End Date Mercy Bunch MD PCP - General Internal Medicine 10/20/14 11/02/15 Thelma Camp PA PCP - General Internal Medicine 11/03/15 04/02/17 Lorrie Solis MD [address] [place] [address] PCP - General Internal Medicine 04/03/17 06/13/24 Lorrie Solis MD [address] [place] [address] PCP - [employer] Attributed 02/14/19 03/16/20 Lorrie Solis MD [address] [place] [address] PCP - [employer] Commercial Attributed 04/17/20 04/16/23 Lorrie Solis MD [address] [place] [address] PCP - General Internal Medicine 06/28/24 09/23/24 Pcp, No PCP - General General Medicine 09/24/24 Laly Gomez MD [address] [place] [address] Obstetrics and Gynecology 01/01/19 Renee Walker PA [address] [place] [address] Physician Safety Scientist Medical Oncology 12/17/22 documented as of this encounter
--- OUTSIDE RECORDS SUMMARY | 2024-12-29 15:37 | XMS_ITS | Encounter Summary ---
Author Organization [facility] Address [address] [place] [address] Care Team Providers Care Marketing Programs Manager Name Role Phone Thelma Camp Primary Care Provider Lorrie Solis MD Primary Care Provider [phone] Laly Gomez MD Unavailable [phone] Lorrie Solis MD Unavailable Lorrie Solis MD Unavailable [phone] Renee Walker Unavailable Lorrie Solis MD Primary Care Provider [phone] Pcp, No Primary Care Provider Unavailabl e Encounter Details Date Type Department Care Team (Late st Contact Info) Description 01/17/2017 Scanned Document [facility] [address] [phone] Thelma Camp PA 100 [facility] [address] [place] [address] Social History Tobacco Use Types Packs/Day Years [...] on filedocumented in this encounter Care Teams Marketing Programs Manager Relationship Specialty Start Date End Date Thelma Camp PA PCP - General Internal Medicine 11/03/15 04/02/17 Lorrie Solis MD [address] [place] [address] PCP - General Internal Medicine 04/03/17 06/13/24 Lorrie Solis MD [address] [place] [address] PCP - [employer] Attributed 02/14/19 03/16/20 Lorrie Solis MD [address] [place] [address] PCP - [employer] Commercial Attributed 04/17/20 04/16/23 Lorrie Solis MD [address] [place] [address] PCP - General Internal Medicine 06/28/24 09/23/24 Pcp, No PCP - General General Medicine 09/24/24 Laly Gomez MD [address] [place] [address] Obstetrics and Gynecology 01/01/19 Renee Walker PA [address] [place] [address] Physician Electric Mule Driver Medical Oncology 12/17/22 documented as of this encounter
--- OUTSIDE RECORDS SUMMARY | 2024-12-29 15:37 | XMS_ITS | Encounter Summary ---
Author Organization [facility] Address [address] [place] [address] Care Team Providers Care Secret Code Expert Name Role Phone Lorrie Solis MD Primary Care Provider [phone] Laly Gomez MD Unavailable [phone] Lorrie Solis MD Unavailable [phone] Lorrie Solis MD Unavailable [phone] Renee Walker Unavailable [phone] Lorrie Solis MD Primary Care Provider [phone] Pcp, No Primary Care Provider Unavailabl e Encounter Details Date Type Department Care Team (Late st Contact Info) Description 08/22/2017 Scanned Document [address] [phone] Provider, Generic Social History Tobacco [...] on filedocumented in this encounter Care Teams Secret Code Expert Relationship Specialty Start Date End Date Lorrie Solis MD [address] [place] [address] PCP - General Internal Medicine 04/03/17 06/13/24 Lorrie Solis MD [address] [place] [address] PCP - [employer] Attributed 02/14/19 03/16/20 Lorrie Solis MD [address] [place] [address] PCP - [employer] Commercial Attributed 04/17/20 04/16/23 Lorrie Solis MD [address] [place] [address] PCP - General Internal Medicine 06/28/24 09/23/24 Pcp, No PCP - General General Medicine 09/24/24 Laly Gomez MD [address] [place] [address] Obstetrics and Gynecology 01/01/19 Renee Walker PA [address] [place] [address] Physician Oracle Sql Developer Medical Oncology 12/17/22 documented as of this encounter
--- OUTSIDE RECORDS SUMMARY | 2024-12-29 15:37 | XMS_ITS | Encounter Summary ---
Author Organization [facility] Address [address] [place] [address] Care Team Providers Care Reinforcing Bar Setter Name Role Phone Lorrie Solis MD Primary Care Provider [phone] Laly Gomez MD Unavailable [phone] Renee Walker Unavailable [phone] Lorrie Solis MD Primary Care Provider [phone]- [phone] Pcp, No Primary Care Provider Unavailabl e Encounter Details Date Type Department Care Team (Late st Contact Info) Description 10/16/2023 Scanned Document [address] [place] [phone] Provider, Generic Social History Tobacco Use Types [...] on filedocumented in this encounter Care Teams Reinforcing Bar Setter Relationship Specialty Start Date End Date Lorrie Solis MD [address] [place] [address] PCP - General Internal Medicine 04/03/17 06/13/24 Lorrie Solis MD [address] [place] [id number] PCP - General Internal Medicine 06/28/24 09/23/24 Pcp, No PCP - General General Medicine 09/24/24 Laly Gomez MD [address] [place] [address] Obstetrics and Gynecology 01/01/19 Renee Walker PA [address] [place] [address] Physician Sewer Bricklayer Medical Oncology 12/17/22 documented as of this encounter
--- OUTSIDE RECORDS SUMMARY | 2024-12-29 15:37 | XMS_ITS | Encounter Summary ---
Author Organization [facility] Address [address] [place] [id number] Care Team Providers Care Drug Purchaser Name Role Phone Thelma Camp Primary Care Provider Lorrie Solis MD Primary Care Provider [phone] Laly Gomez MD Unavailable Lorrie Solis MD Unavailable Lorrie Solis MD Unavailable [phone] Renee Walker Unavailable Lorrie Solis MD Primary Care Provider [phone] Pcp, No Primary Care Provider Unavailabl e Encounter Details Date Type Department Care Team (Late st Contact Info) Description 01/03/2017 Scanned Document [address] [place] [phone] Provider, Generic Social History Tobacco Use [...] on filedocumented in this encounter Care Teams Drug Purchaser Relationship Specialty Start Date End Date Thelma Camp PA PCP - General Internal Medicine 11/03/15 04/02/17 Lorrie Solis MD [address] [place] [address] PCP - General Internal Medicine 04/03/17 06/13/24 Lorrie Solis MD [address] [place] [id number] PCP - [employer] Attributed 02/14/19 03/16/20 Lorrie Solis MD [address] [place] [address] PCP - [employer] Attributed 04/17/20 04/16/23 Lorrie Solis MD [address] [place] [id number] PCP - General Internal Medicine 06/28/24 09/23/24 Pcp, No PCP - General General Medicine 09/24/24 Laly Gomez MD [address] [place] [address] Obstetrics and Gynecology 01/01/19 Renee Walker PA [address] [place] [id number] Physician Forensic Engineer Medical Oncology 12/17/22 documented as of this encounter
--- OUTSIDE RECORDS SUMMARY | 2024-12-29 15:38 | XMS_ITS | Encounter Summary ---
Author Organization [facility] Address [address] [place] [address] Care Team Providers Care Technical Designer Name Role Phone Lorrie Solis MD Primary Care Provider [phone] Laly Gomez MD Unavailable [phone] Renee Walker Unavailable [phone] Lorrie Solis MD Primary Care Provider [phone] Pcp, No Primary Care Provider Unavailabl e Encounter Details Date Type Department Care Team (Late st Contact Info) Description 10/16/2023 Scanned Document [address] [place] [phone] Provider, Generic Social History Tobacco Use [...] on filedocumented in this encounter Care Teams Technical Designer Relationship Specialty Start Date End Date Lorrie Solis MD [address] [place] [address] PCP - General Internal Medicine 04/03/17 06/13/24 Lorrie Solis MD [address] [place] [phone] PCP - General Internal Medicine 06/28/24 09/23/24 Pcp, No PCP - General General Medicine 09/24/24 Laly Gomez MD [address] [place] [address] Obstetrics and Gynecology 01/01/19 Renee Walker PA [address] [place] [id number] Physician Insurance Writer Medical Oncology 12/17/22 documented as of this encounter
--- OUTSIDE RECORDS SUMMARY | 2024-12-29 15:38 | XMS_ITS | Clinical Summary ---
Author Organization [address] [place] [address] Care Team Providers Care Metal Sprayer Protective Coating Name Role Phone Pcp, Does Not Have A Primary Care Provider Unava ilable Allergies Active Allergy Reactions Criticality Noted Date Comments Adhesive Tape-Silicones Rash Low 10/26/2012 Medications ELIQUIS 5 mg Tab tablet Take 1 tablet (5 mg total) by mouth every 12 (twelve) hours. 08/18/2024 Active buPROPion XL (WELLBUTRIN XL) 300 mg 24 hr tablet Take 1 tablet (300 mg total) by mouth every morning. Active Active Problems No known active problems Social History Tobacco Use Types Packs/Day Years Used Date Smoking Tobacco: Never Assessed Comments Unknown Sex and Gender Information Value Date Recorded Sex Assigned at Not on file Legal Sex Female 2:58 PM EDT Gender Identity Not on file Sexual Orientation Not on file Plan of Treatment Health Maintenance Due Date Last Done Comments HIV screening 1983 Hepatitis C screening 1988 Cervical cancer screening 1991 Lipid disorder screening 2010 Colon cancer screening, Colonoscopy 2015 Diabetes screening 2015 Pneumococcal Vaccine (50+ years) (1 of 1 - PCV) 2020 Breast cancer screening 04/15/2024 04/15/19 23, 01/12/2019, 01/09/2019, Additional history exists Influenza vaccine 10/15/2024 01/04/2020, 11/18/2018 Covid-19 vaccine series ( season) 2024 03/29/2021 Tetanus adult (Td q 10,TDAP once) 04/05/2026 04/05/2016, 02/12/2007 RSV Immunization (1 - 1-dose 75+ series) 2045 Shingles vaccine (Shingrix) Completed 03/06/2023, 0 11/11/2022 Meningococcal B Vaccine Aged Out No l onger eligible based on patient's age to complete this topic Meningococcal Vaccine Aged Out No loretta angel eligible based on patient's age to complete this topic Insurance Care Teams Metal Sprayer Protective Coating Relationship Specialty Start Date End Date Pcp, Does Not Have A PCP - General 09/09/24
--- OUTSIDE RECORDS SUMMARY | 2024-12-29 15:38 | XMS_ITS ---
Author Name [facility] Organization Unknown Results Test Name/Text Value Interpretation Date Range Source PT Bld 25.2 sec Above high normal 5 10.5 - 13.3 [facility] 2.1 Above high normal 5 0.8 - 1.1 [facility] 2.0 Above high normal 5 0.8 - 1.1 [facility] PT Bld 23.6 sec Above high normal 5 10.5 - 13.3 [facility] PT Bld 19.7 sec Above high normal 5 10.5 - 13.3 [facility] 1.7 Above high normal 5 0.8 - 1.1 [facility] 1.8 Above high normal 5 0.8 - 1.1 [facility] PT Bld 21.1 sec Above high normal 5 10.5 - 13.3 [facility] PT Bld 15.7 sec Above high normal 5 10.5 - 13.3 [facility] 1.3 Above high normal 5 0.8 - 1.1 [facility] Calcium SerPl-mCnc 9.4 mg/dL Normal 5 8.4 - 10.2 [facility] Prot SerPl-mCnc 7.1 g/dL Normal 5 6.4 - 8.5 [facility] BUN/Creat SerPl 13.3 Normal 5 12 - 20 [facility] Creat SerPl-mCnc 0.9 mg/dL Normal 5 0.5 - 1 [facility] Bilirub SerPl-mCnc 0.5 mg/dL Normal 5 0.3 - 1 [facility] ALT SerPl-cCnc 12.0 unit/L Normal 5 7 - 52 [facility] eGFRcr SerPlBld CKD-EPI 2020 77.0 mL/min/1.73m2 Normal 5 - [facility] Glucose SerPl-mCnc 103.0 mg/dL Normal 5 70 - 199 [facility] BUN SerPl-mCnc 12.0 mg/dL Normal 5 7 - 17 [facility] Sodium SerPl-sCnc 140.0 mmol/L Normal 5 135 - 145 [facility] AST SerPl-cCnc 18.0 unit/L Normal 5 5 - 40 [facility] Chloride SerPl-sCnc 105.0 mmol/L Normal 5 98 - 107 [facility] CO2 SerPl-sCnc 24.0 mmol/L Normal 5 24 - 32 [facility] Potassium SerPl-sCnc 4.1 mmol/L Normal 5 3.5 - 5.1 [facility] Albumin SerPl-mCnc 4.5 g/dL Normal 5 3.5 - 5 [facility] Anion Gap SerPl-sCnc 11.0 Normal 5 5 - 14 [facility] ALP SerPl-cCnc 59.0 unit/L Normal 5 34 - 104 [facility] INR [facility] 1.7 Above high normal 5 0.8 - 1.1 [facility] PT Bld 19.6 sec Above high normal 5 10.5 - 13.3 [facility] Basophils # Bld Auto 0.04 K/mcL Normal 4 0 - 0.2 [facility] Basophils/leuk NFr Bld Auto 0.7 % Normal 4 0 - 2 [facility] Monocytes # Bld Auto 0.4 K/mcL Normal 4 0 - 0.8 [facility] Eosinophil # Bld Auto 0.04 K/mcL Normal 4 0 - 0.5 [facility] Neutrophils/leuk NFr Bld Auto 52.6 % Normal 4 44 - 74 [facility] Eosinophil/leuk NFr Bld Auto 0.7 % Normal 4 0 - 6 [facility] MCV RBC Auto 96.0 FL Normal 4 78 - 100 [facility] Lymphocytes/leuk NFr Bld Auto 38.6 % Normal 4 20 - 48 [facility] Neutrophils # Bld Auto 2.94 K/mcL Normal 4 1.8 - 7.8 [facility] Hct VFr Bld Auto 43.4 % Normal 4 37 - 47 [facility] MCHC RBC Auto-mCnc 32.7 g/dL Normal 4 32 - 36 [facility]CH RBC Qn Auto 31.4 pcg Normal 4 25 - 33 [facility] PMV Bld Auto 9.5 FL Normal 4 7.4 - 11.4 [facility] RDW RBC Auto-Rto 12.3 % Normal 4 12.1 - 16.2 [facility] WBC # Bld Auto 5.6 K/mcL Normal 4 4 - 10.5 [facility] Monocytes/leuk NFr Bld Auto 7.2 % Normal 4 2 - 12 [facility] Platelet # Bld Auto 331.0 K/mcL Normal 4 150 - 450 [facility] Hgb Bld-mCnc 14.2 g/dL Normal 4 12.5 - 16 [facility] RBC # Bld Auto 4.52 M/mcL Normal 4 4.2 - 5.4 [facility] Lymphocytes # Bld Auto 2.16 K/mcL Normal 4 1 - 3.2 [facility] INR PPP 1.8 Above high normal 4 0.8 - 1.1 [facility] PT Bld 21.3 sec Above high normal 4 10.5 - 13.3 [facility] PT Bld 22.8 sec Above high normal 4 10.5 - 13.3 [facility] INR PPP 1.9 Above high normal 4 0.8 - 1.1 [facility] INR PPP 2.2 Above high normal 4 0.8 - 1.1 [facility] PT Bld 25.5 sec Above high normal 4 10.5 - 13.3 [facility] Bacteria Ur Cult SEE NOTE Abnormal 4 [facility]PP 1.8 Above high normal 4 0.8 - 1.1 [facility] PT Bld 21.4 sec Above high normal 4 10.5 - 13.3 [facility] PT Bld 22.6 sec Above high normal 4 10.5 - 13.3 [facility] INR PPP 1.9 Above high normal 4 0.8 - 1.1 [facility] PT Bld 41.4 sec Above high normal 4 10.5 - 13.3 [facility] INR PPP 3.5 Above high normal 4 0.8 - 1.1 [facility] PT Bld 26.7 sec Above high normal 4 10.5 - 13.3 [facility] INR PPP 2.3 Above high normal 4 0.8 - 1.1 [facility] PT Bld 22.9 sec Above high normal 4 10.5 - 13.3 [facility] INR PPP 1.9 Above high normal 4 0.8 - 1.1 [facility] PT TIME PPP 21.0 sec Above high normal 4 10.5 - 13.3 [facility] INR PPP 1.8 Above high normal 4 0.8 - 1.1 [facility] INR PPP 3.0 Above high normal 4 0.8 - 1.1 [facility] PT TIME PPP 34.9 sec Above high normal 4 10.5 - 13.3 [facility] PT TIME PPP 30.1 sec Above high normal 4 10.5 - 13.3 [facility] INR PPP 2.6 Above high normal 4 0.8 - 1.1 [facility] INR PPP 2.6 Above high normal 4 0.8 - 1.1 [facility] PT TIME PPP 30.8 sec Above high normal 4 10.5 - 13.3 [facility] INR PPP 2.5 Above high normal 4 0.8 - 1.1 [facility] PT TIME PPP 29.3 sec Above high normal 4 10.5 - 13.3 [facility] INR PPP 1.9 Above high normal 4 0.8 - 1.1 [facility] PT TIME PPP 22.6 sec Above high normal 4 10.5 - 13.3 [facility] INR PPP 2.0 Above high normal 4 0.8 - 1.1 [facility] PT TIME PPP 24.1 sec Above high normal 4 10.5 - 13.3 [facility] INR PPP 2.0 Above high normal 4 0.8 - 1.1 [facility] PT TIME PPP 23.4 sec Above high normal 4 10.5 - 13.3 [facility] INR PPP 3.0 Above high normal 4 0.8 - 1.1 [facility] PT TIME PPP 35.1 sec Above high normal 4 10.5 - 13.3 [facility] PT TIME PPP 32.0 sec Above high normal 4 10.5 - 13.3 [facility] INR PPP 2.7 Above high normal 4 0.8 - 1.1 [facility] PT TIME PPP 31.6 sec Above high normal 4 10.5 - 13.3 [facility] INR PPP 2.7 Above high normal 4 0.8 - 1.1 [facility] PT TIME PPP 23.0 sec Above high normal 4 10.5 - 13.3 [facility] INR PPP 1.9 Above high normal 4 0.8 - 1.1 [facility] INR PPP 2.8 Above high normal 4 0.8 - 1.1 [facility] PT TIME PPP 32.4 sec Above high normal 4 10.5 - 13.3 [facility] INR PPP 2.9 Above high normal 4 0.8 - 1.1 [facility] PT TIME PPP 34.2 sec Above high normal 4 10.5 - 13.3 [facility] INR PPP 2.7 Above high normal 4 0.8 - 1.1 [facility] PT TIME PPP 31.8 sec Above high normal 4 10.5 - 13.3 [facility] INR PPP 2.7 Above high normal 4 0.8 - 1.1 [facility] PT TIME PPP 31.7 sec Above high normal 4 10.5 - 13.3 [facility] INR PPP 3.3 Above high normal 4 0.8 - 1.1 [facility] PT TIME PPP 39.2 sec Above high normal 4 10.5 - 13.3 [facility] INR PPP 3.9 Above high normal 4 0.8 - 1.1 [facility] PT TIME PPP 45.1 sec Above high normal 4 10.5 - 13.3 [facility] INR PPP 2.4 Above high normal 4 0.8 - 1.1 [facility] PT TIME PPP 28.7 sec Above high normal 4 10.5 - 13.3 [facility] INR PPP 1.9 Above high normal 4 0.8 - 1.1 [facility] PT TIME PPP 23.0 sec Above high normal 4 10.5 - 13.3 [facility] Troponin I SerPl HS-mCnc 2.0 ng/L Normal 4 0 - 14 [facility] LIPASE SERPL CCNC 39.0 U/L Normal 4 11 - 82 [facility] ALBUMIN/GLOB SERPL MRTO 1.5 Normal 4 [facility] BILIRUB DIRECT SERPL MCNC 0.1 mg/dL Normal 4 0 - 0.2 [facility] ALP SERPL-CCNC 66.0 U/L Normal 4 34 - 104 [facility] ALBUMIN SERPL BCG MCNC 4.3 g/dL Normal 4 3.5 - 5 [facility] AST SERPL CCNC 78.0 U/L Above high normal 08/27/19 2 4 5 - 40 [facility] ALT SERPL [facility]NC 26.0 U/L Normal 4 7 - 52 [facility] BILIRUB SERPL MCNC 0.5 mg/dL Normal 4 0.3 - 1 [facility] PROT SERPL [facility]NC 7.2 g/dL Normal 4 6.4 - 8.5 [facility] APTT TIME PPP 40.0 sec Above high normal 4 22 - 35 [facility] BASOPHILS IN BLOOD BY AUTOMATED COUNT 0.0 K/uL Normal 4 0 - 0.2 [facility] BASOPHILS NFR BLD AUTO 0.5 % Normal 4 0 - 2 [facility] RBC NO. BLD AUTO 4.59 M/uL Normal 4 4.2 - 5.4 [facility] NEUTROPHILS NFR BLD AUTO 45.7 % Normal 4 44 - 74 [facility] EOSINOPHIL NO. BLD AUTO 0.1 K/uL Normal 4 0 - 0.5 [facility] PLATELET NO. BLD AUTO 306.0 K/uL Normal 4 150 - 450 [facility] EOSINOPHIL NFR BLD AUTO 0.7 % Normal 4 0 - 6 [facility] MONOCYTES NO. BLD AUTO 0.8 K/uL Normal 4 0 - 0.8 [facility] MCH RBC QN AUTO 31.4 pg Normal 4 25 - 33 [facility] MCHC RBC AUTO MCNC 34.2 g/dL Normal 4 32 - 36 [facility] HGB BLD MCNC 14.4 g/dL Normal 4 12.5 - 16 [facility] NUCLEATED RBC 0.0 % Normal 4 0 - 1 [facility] IMMATURE GRANULOCYTE, PERCENT 0.2 % Normal 4 0 - 1 [facility] HCT VFR BLD AUTO 42.1 % Normal 4 37 - 47 [facility] NEUTROPHILS NO. BLD AUTO 3.9 K/uL Normal 4 1.8 - 7.8 [facility] MCV RBC AUTO 91.7 fL Normal 4 78 - 100 [facility] WBC NO. BLD AUTO 8.4 K/uL Normal 4 4 - 10.5 [facility] RDW RBC AUTO RTO 12.8 % Normal 4 12.1 - 16.2 [facility] PMV BLD AUTO 9.8 fL Normal 4 7.4 - 11.4 [facility] LYMPHOCYTES NO. BLD AUTO 3.6 K/uL Above high normal 4 1 - 3.2 [facility] LYMPHOCYTES NFR BLD AUTO 42.9 % Normal 4 20 - 48 [facility] MONOCYTES NFR BLD AUTO 10.0 % Normal 4 2 - 12 [facility] IMMATURE GRANULOCYTE, ABSOLUTE 0.02 k/uL Normal 4 - 0.1 [facility] Glomerular filtration rate/1.73 sq M. predicted 67.0 Normal 4 60 - [facility] CREAT SERPL MCNC 1.0 mg/dL Normal 4 0.5 - 1 [facility] HCO3 SER SCNC 27.0 mmol/L Normal 4 24 - 32 [facility] CALCIUM SERPL MCNC 9.2 mg/dL Normal 4 8.4 - 10.2 [facility] POTASSIUM SERPL SCNC 3.7 mmol/L Normal 4 3.5 - 5.1 [facility] GLUCOSE SERPL MCNC 85.0 mg/dL Normal 4 70 - 199 [facility] SODIUM SERPL SCNC 139.0 mmol/L Normal 4 135 - 145 [facility] CHLORIDE SERPL SCNC 104.0 mmol/L Normal 4 98 - 107 [facility] ANION GAP SERPL SCNC 8.0 mmol/L Normal 4 5 - 14 [facility] BUN SERPL [facility]NC 21.0 mg/dL Above high normal 08/27/19 2 4 7 - 17 [facility] AMYLASE SERPL CCNC 69.0 U/L Normal 4 29 - 103 [facility] INR PPP 1.8 Above high normal 4 0.8 - 1.1 [facility] PT TIME PPP 22.2 sec Above high normal 4 10.5 - 13.3 [facility] INR PPP 2.0 Above high normal 4 0.8 - 1.1 [facility] PT TIME PPP 23.9 sec Above high normal 4 10.5 - 13.3 [facility] INR PPP 3.0 Above high normal 4 0.8 - 1.1 [facility] PT TIME PPP 34.9 sec Above high normal 4 10.5 - 13.3 [facility] INR PPP 2.8 Above high normal 4 0.8 - 1.1 [facility] PT TIME PPP 33.1 sec Above high normal 4 10.5 - 13.3 [facility] BASOPHILS NFR BLD AUTO 0.7 % Normal 4 0 - 2 [facility] PMV BLD AUTO 9.7 fL Normal 4 7.4 - 11.4 [facility] MCV RBC AUTO 92.4 fL Normal 4 78 - 100 [facility] RBC NO. BLD AUTO 4.86 M/uL Normal 4 4.2 - 5.4 [facility] LYMPHOCYTES NO. BLD AUTO 2.1 K/uL Normal 4 1 - 3.2 [facility] NEUTROPHILS NO. BLD AUTO 3.5 K/uL Normal 4 1.8 - 7.8 [facility] NEUTROPHILS NFR BLD AUTO 57.4 % Normal 4 44 - 74 [facility] MCHC RBC AUTO MCNC 33.2 g/dL Normal 4 32 - 36 [facility] MONOCYTES NFR BLD AUTO 7.2 % Normal 4 2 - 12 [facility] RDW RBC AUTO RTO 12.0 % Below low normal 02 4 12.1 - 16.2 [facility] PLATELET NO. BLD AUTO 338.0 K/uL Normal 4 150 - 450 [facility] IMMATURE GRANULOCYTE, PERCENT 0.2 % Normal 4 0 - 1 [facility] WBC NO. BLD AUTO 6.1 K/uL Normal 4 4 - 10.5 [facility] MCH RBC QN AUTO 30.7 pg Normal 4 25 - 33 [facility] EOSINOPHIL NFR BLD AUTO 0.7 % Normal 4 0 - 6 [facility] EOSINOPHIL NO. BLD AUTO 0.0 K/uL Normal 4 0 - 0.5 [facility] HCT VFR BLD AUTO 44.9 % Normal 4 37 - 47 [facility] HGB BLD MCNC 14.9 g/dL Normal 4 12.5 - 16 [facility] BASOPHILS IN BLOOD BY AUTOMATED COUNT 0.0 K/uL Normal 4 0 - 0.2 [facility] IMMATURE GRANULOCYTE, ABSOLUTE 0.01 k/uL Normal 4 - 0.1 [facility] MONOCYTES NO. BLD AUTO 0.4 K/uL Normal 4 0 - 0.8 [facility] LYMPHOCYTES NFR BLD AUTO 33.8 % Normal 4 20 - 48 [facility] INR PPP 1.8 Above high normal 4 0.8 - 1.1 [facility] PT TIME PPP 21.5 sec Above high normal 4 10.5 - 13.3 [facility] PT TIME PPP 25.8 sec Above high normal 4 10.5 - 13.3 [facility] INR PPP 2.2 Above high normal 4 0.8 - 1.1 [facility] PT TIME PPP 32.2 sec Above high normal 4 10.5 - 13.3 [facility] INR PPP 2.7 Above high normal 4 0.8 - 1.1 [facility] PT TIME PPP 22.8 sec Above high normal 4 10.5 - 13.3 [facility] INR PPP 1.9 Above high normal 4 0.8 - 1.1 [facility] PT TIME PPP 21.0 sec Above high normal 4 10.5 - 13.3 [facility] INR PPP 1.8 Above high normal 4 0.8 - 1.1 [facility] INR PPP 1.5 Above high normal 4 0.8 - 1.1 [facility] PT TIME PPP 17.8 sec Above high normal 4 10.5 - 13.3 [facility] INR PPP 1.7 Above high normal 4 0.8 - 1.1 [facility] PT TIME PPP 20.6 sec Above high normal 4 10.5 - 13.3 [facility] INR PPP 1.3 Above high normal 4 0.8 - 1.1 [facility] PT TIME PPP 15.7 sec Above high normal 4 10.5 - 13.3 [facility] INR PPP 1.5 Above high normal 4 0.8 - 1.1 [facility] PT TIME PPP 18.1 sec Above high normal 4 10.5 - 13.3 [facility] PT TIME PPP 25.0 sec Above high normal 4 10.5 - 13.3 [facility] INR PPP 2.1 Above high normal 4 0.8 - 1.1 [facility] INR PPP 1.9 Above high normal 4 0.8 - 1.1 [facility] PT TIME PPP 21.9 sec Above high normal 4 10.5 - 13.3 [facility] PMV BLD AUTO 8.3 fL Normal 4 7.4 - 11.4 [facility] MONOCYTES NO. BLD AUTO 0.4 K/uL Normal 4 0 - 0.8 [facility] HGB BLD MCNC 14.0 g/dL Normal 4 12.5 - 16 [facility] RDW RBC AUTO RTO 13.2 % Normal 4 12.1 - 16.2 [facility] RBC NO. BLD AUTO 4.37 M/uL Normal 4 4.2 - 5.4 [facility] MONOCYTES NFR BLD AUTO 6.2 % Normal 4 2 - 12 [facility] BASOPHILS IN BLOOD BY AUTOMATED COUNT 0.1 K/uL Normal 4 0 - 0.2 [facility] EOSINOPHIL NFR BLD AUTO 0.6 % Normal 4 0 - 6 [facility] LYMPHOCYTES NFR BLD AUTO 44.6 % Normal 4 20 - 48 [facility] MCHC RBC AUTO MCNC 34.5 g/dL Normal 4 32 - 36 [facility] BASOPHILS NFR BLD AUTO 1.3 % Normal 4 0 - 2 [facility] DIFFERENTIAL TYPE AUTOMATED Normal 4 [facility] NEUTROPHILS NO. BLD AUTO 3.2 K/uL Normal 4 1.8 - 7.8 [facility] MCH RBC QN AUTO 32.0 pg Normal 4 25 - 33 [facility] NEUTROPHILS NFR BLD AUTO 47.3 % Normal 4 44 - 74 [facility] HCT VFR BLD AUTO 40.5 % Normal 4 37 - 47 [facility] MCV RBC AUTO 92.7 fL Normal 4 78 - 100 [facility] WBC NO. BLD AUTO 6.7 K/uL Normal 4 4 - 10.5 [facility] EOSINOPHIL NO. BLD AUTO 0.0 K/uL Normal 4 0 - 0.5 [facility] PLATELET NO. BLD AUTO 314.0 K/uL Normal 4 150 - 450 [facility] LYMPHOCYTES NO. BLD AUTO 3.0 K/uL Normal 4 1 - 3.2 [facility] PT TIME PPP 23.5 sec Above high normal 4 10.5 - 13.3 [facility] INR PPP 2.0 Above high normal 4 0.8 - 1.1 [facility] INR PPP 1.9 Above high normal 4 0.8 - 1.1 [facility] PT TIME PPP 22.7 sec Above high normal 4 10.5 - 13.3 [facility] INR PPP 1.6 Above high normal 4 0.8 - 1.1 [facility] PT TIME PPP 18.4 sec Above high normal 4 10.5 - 13.3 [facility] PT TIME PPP 29.1 sec Above high normal 4 10.5 - 13.3 [facility] INR PPP 2.5 Above high normal 4 0.8 - 1.1 [facility] Service [facility] XXX-Imp Cepheid GeneXpert (RT-PCR) [facility] Normal 4 [facility] FLUAV RNA Nph Ql CEZAR+non-probe NEGATIVE Normal 4 [facility] RSV RNA Nph Ql CEZAR+non-probe NEGATIVE Normal 4 [facility] FLUBV RNA Nph Ql CEZAR+non-probe NEGATIVE Normal 4 [facility] SPECIMEN SOURCE XXX NASOPHARYNGEAL Normal 4 [facility] INR PPP 1.8 Above high normal 4 0.8 - 1.1 [facility] PT TIME PPP 21.9 sec Above high normal 4 10.5 - 13.3 [facility] Troponin I SerPl HS-mCnc 3.0 ng/L Normal 4 0 - 14 [facility] BUN SERPL MCNC 14.0 mg/dL Normal 4 7 - 17 [facility] Glomerular filtration rate/1.73 sq M. predicted 77.0 Normal 4 60 - [facility] POTASSIUM SERPL SCNC 4.6 mmol/L Normal 4 3.5 - 5.1 [facility] SODIUM SERPL SCNC 141.0 mmol/L Normal 4 135 - 145 [facility] GLUCOSE SERPL MCNC 106.0 mg/dL Normal 4 70 - 199 [facility] CHLORIDE SERPL SCNC 104.0 mmol/L Normal 4 98 - 107 [facility] CALCIUM SERPL MCNC 10.0 mg/dL Normal 4 8.4 - 10.2 [facility] HCO3 SER SCNC 30.0 mmol/L Normal 4 24 - 32 [facility] CREAT SERPL MCNC 0.9 mg/dL Normal 4 0.5 - 1 [facility] ANION GAP SERPL SCNC 7.0 mmol/L Normal 4 5 - 14 [facility] MAGNESIUM SERPL MCNC 2.2 mg/dL Normal 4 1.7 - 2.8 [facility] LYMPHOCYTES NFR BLD AUTO 18.3 % Below low normal 4 20 - 48 [facility] EOSINOPHIL NO. BLD AUTO 0.0 K/uL Normal 4 0 - 0.5 [facility] MONOCYTES NO. BLD AUTO 0.7 K/uL Normal 4 0 - 0.8 [facility] BASOPHILS NFR BLD AUTO 0.5 % Normal 4 0 - 2 [facility] BASOPHILS IN BLOOD BY AUTOMATED COUNT 0.0 K/uL Normal 4 0 - 0.2 [facility] NEUTROPHILS NO. BLD AUTO 5.5 K/uL Normal 4 1.8 - 7.8 [facility] MONOCYTES NFR BLD AUTO 9.5 % Normal 4 2 - 12 [facility] LYMPHOCYTES NO. BLD AUTO 1.4 K/uL Normal 4 1 - 3.2 [facility] EOSINOPHIL NFR BLD AUTO 0.1 % Normal 4 0 - 6 [facility] NUCLEATED RBC 0.0 % Normal 4 0 - 1 [facility] NEUTROPHILS NFR BLD AUTO 71.3 % Normal 4 44 - 74 [facility] IMMATURE GRANULOCYTE, PERCENT 0.3 % Normal 4 0 - 1 [facility] IMMATURE GRANULOCYTE, ABSOLUTE 0.02 k/uL Normal 4 - 0.1 [facility] MCV RBC AUTO 93.0 fL Normal 4 78 - 100 [facility] WBC NO. BLD AUTO 7.7 K/uL Normal 4 4 - 10.5 [facility] MCH RBC QN AUTO 32.0 pg Normal 4 25 - 33 [facility] RDW RBC AUTO RTO 12.7 % Normal 4 12.1 - 16.2 [facility] MCHC RBC AUTO MCNC 34.4 g/dL Normal 4 32 - 36 [facility] PLATELET NO. BLD AUTO 317.0 K/uL Normal 4 150 - 450 [facility] HCT VFR BLD AUTO 45.1 % Normal 4 37 - 47 [facility] PMV BLD AUTO 10.0 fL Normal 4 7.4 - 11.4 [facility] RBC NO. BLD AUTO 4.85 M/uL Normal 4 4.2 - 5.4 [facility] HGB BLD MCNC 15.5 g/dL Normal 4 12.5 - 16 [facility] Troponin I SerPl HS-mCnc 3.0 ng/L Normal 4 0 - 14 [facility] INR PPP 1.8 Above high normal 4 0.8 - 1.1 [facility] PT TIME PPP 21.1 sec Above high normal 4 10.5 - 13.3 [facility] MONOCYTES NO. BLD AUTO 0.4 K/uL Normal 4 0 - 0.8 [facility] NEUTROPHILS NO. BLD AUTO 2.7 K/uL Normal 4 1.8 - 7.8 [facility] DIFFERENTIAL TYPE AUTOMATED Normal 4 [facility] BASOPHILS NFR BLD AUTO 0.8 % Normal 4 0 - 2 [facility] RDW RBC AUTO RTO 12.6 % Normal 4 12.1 - 16.2 [facility] MONOCYTES NFR BLD AUTO 6.7 % Normal 4 2 - 12 [facility] RBC NO. BLD AUTO 4.28 M/uL Normal 4 4.2 - 5.4 [facility] EOSINOPHIL NO. BLD AUTO 0.0 K/uL Normal 4 0 - 0.5 [facility] PLATELET NO. BLD AUTO 311.0 K/uL Normal 4 150 - 450 [facility] PMV BLD AUTO 8.2 fL Normal 4 7.4 - 11.4 [facility] EOSINOPHIL NFR BLD AUTO 0.8 % Normal 4 0 - 6 [facility] LYMPHOCYTES NO. BLD AUTO 2.6 K/uL Normal 4 1 - 3.2 [facility] LYMPHOCYTES NFR BLD AUTO 45.0 % Normal 4 20 - 48 [facility] MCV RBC AUTO 93.1 fL Normal 4 78 - 100 [facility] HCT VFR BLD AUTO 39.8 % Normal 4 37 - 47 [facility] MCH RBC QN AUTO 32.1 pg Normal 4 25 - 33 [facility] MCHC RBC AUTO MCNC 34.4 g/dL Normal 4 32 - 36 [facility] BASOPHILS IN BLOOD BY AUTOMATED COUNT 0.0 K/uL Normal 4 0 - 0.2 [facility] HGB BLD MCNC 13.7 g/dL Normal 4 12.5 - 16 [facility] NEUTROPHILS NFR BLD AUTO 46.7 % Normal 4 44 - 74 [facility] WBC NO. BLD AUTO 5.9 K/uL Normal 4 4 - 10.5 [facility] PT TIME PPP 28.8 sec Above high normal 4 10.5 - 13.3 [facility] INR PPP 2.4 Above high normal 4 0.8 - 1.1 [facility] PT TIME PPP 38.1 sec Above high normal 4 10.5 - 13.3 [facility] INR PPP 3.3 Above high normal 4 0.8 - 1.1 [facility] NEUTROPHILS NO. BLD AUTO 1.8 K/uL Normal 4 1.8 - 7.8 [facility] LYMPHOCYTES NFR BLD AUTO 50.2 % Above high normal 4 20 - 48 [facility] BASOPHILS IN BLOOD BY AUTOMATED COUNT 0.1 K/uL Normal 4 0 - 0.2 [facility] MONOCYTES NO. BLD AUTO 0.3 K/uL Normal 4 0 - 0.8 [facility] EOSINOPHIL NO. BLD AUTO 0.1 K/uL Normal 4 0 - 0.5 [facility] HCT VFR BLD AUTO 41.6 % Normal 4 37 - 47 [facility] MONOCYTES NFR BLD AUTO 7.3 % Normal 4 2 - 12 [facility] EOSINOPHIL NFR BLD AUTO 1.2 % Normal 4 0 - 6 [facility] DIFFERENTIAL TYPE AUTOMATED Normal 4 [facility] MCHC RBC AUTO MCNC 33.9 g/dL Normal 4 32 - 36 [facility] PMV BLD AUTO 8.4 fL Normal 4 7.4 - 11.4 [facility] MCH RBC QN AUTO 31.6 pg Normal 4 25 - 33 [facility] RDW RBC AUTO RTO 12.6 % Normal 4 12.1 - 16.2 [facility] WBC NO. BLD AUTO 4.5 K/uL Normal 4 4 - 10.5 [facility] MCV RBC AUTO 93.2 fL Normal 4 78 - 100 [facility] NEUTROPHILS NFR BLD AUTO 40.1 % Below low normal 4 44 - 74 [facility] LYMPHOCYTES NO. BLD AUTO 2.3 K/uL Normal 4 1 - 3.2 [facility] PLATELET NO. BLD AUTO 346.0 K/uL Normal 4 150 - 450 [facility] HGB BLD MCNC 14.1 g/dL Normal 4 12.5 - 16 [facility] RBC NO. BLD AUTO 4.47 M/uL Normal 4 4.2 - 5.4 [facility] BASOPHILS NFR BLD AUTO 1.2 % Normal 4 0 - 2 [facility] AST SERPL CCNC 14.0 U/L Normal 4 5 - 40 [facility] CHLORIDE SERPL SCNC 106.0 mmol/L Normal 4 98 - 107 [facility] ALP SERPL-CCNC 52.0 U/L Normal 4 34 - 104 [facility] POTASSIUM SERPL SCNC 4.1 mmol/L Normal 4 3.5 - 5.1 [facility] Glomerular filtration rate/1.73 sq M. predicted 77.0 Normal 4 60 - [facility] ANION GAP SERPL SCNC 9.0 mmol/L Normal 4 5 - 14 [facility] CALCIUM SERPL MCNC 9.3 mg/dL Normal 4 8.4 - 10.2 [facility] CREAT SERPL MCNC 0.9 mg/dL Normal 4 0.5 - 1 [facility] PROT SERPL MCNC 7.3 g/dL Normal 4 6.4 - 8.5 [facility] SODIUM SERPL SCNC 140.0 mmol/L Normal 4 135 - 145 [facility] ALBUMIN SERPL BCG MCNC 4.2 g/dL Normal 4 3.5 - 5 [facility] HCO3 SER SCNC 25.0 mmol/L Normal 4 24 - 32 [facility] BILIRUB SERPL MCNC 0.5 mg/dL Normal 4 0.3 - 1 [facility] ALT SERPL CCNC 12.0 U/L Normal 4 7 - 52 [facility] BUN SERPL MCNC 17.0 mg/dL Normal 4 7 - 17 [facility] GLUCOSE SERPL MCNC 79.0 mg/dL Normal 4 70 - 199 [facility] INR P[facility] 3.2 Above high normal 4 0.8 - 1.1 [facility] PT TIME PPP 38.0 sec Above high normal 4 10.5 - 13.3 [facility] PT TIME PPP 23.9 sec Above high normal 4 10.5 - 13.3 [facility] INR PPP 2.0 Above high normal 4 0.8 - 1.1 [facility] PT TIME PPP 22.5 sec Above high normal 4 10.5 - 13.3 [facility] INR PPP 1.9 Above high normal 4 0.8 - 1.1 [facility] PT TIME PPP 22.1 sec Above high normal 3 10.5 - 13.3 [facility] INR PPP 1.9 Above high normal 3 0.8 - 1.1 [facility] INR PPP 2.1 Above high normal 3 0.8 - 1.1 [facility] PT TIME PPP 24.5 sec Above high normal 3 10.5 - 13.3 [facility] INR PPP 2.4 Above high normal 3 0.8 - 1.1 [facility] PT TIME PPP 28.9 sec Above high normal 3 10.5 - 13.3 [facility] PT TIME PPP 22.2 sec Above high normal 3 10.5 - 13.3 [facility] INR PPP 1.9 Above high normal 3 0.8 - 1.1 [facility] INR PPP 1.8 Above high normal 3 0.8 - 1.1 [facility] PT TIME PPP 21.5 sec Above high normal 3 10.5 - 13.3 [facility] PT TIME PPP 29.0 sec Above high normal 3 10.5 - 13.3 [facility] INR PPP 2.4 Above high normal 3 0.8 - 1.1 [facility] PT TIME PPP 23.9 sec Above high normal 3 10.5 - 13.3 [facility] INR PPP 2.0 Above high normal 3 0.8 - 1.1 [facility] INR PPP 2.3 Above high normal 3 0.8 - 1.1 [facility] PT TIME PPP 26.4 sec Above high normal 3 10.5 - 13.3 [facility] INR PPP 2.7 Above high normal 3 0.8 - 1.1 [facility] PT TIME PPP 30.6 sec Above high normal 3 10.5 - 13.3 [facility] INR PPP 2.5 Above high normal 3 0.8 - 1.1 [facility] PT TIME PPP 28.4 sec Above high normal 3 10.5 - 13.3 [facility] PT TIME PPP 59.4 sec Above high normal 3 10.5 - 13.3 [facility] INR PPP 5.1 Above high normal 3 0.8 - 1.1 [facility] INR PPP 1.4 Above high normal 3 0.8 - 1.1 [facility] PT TIME PPP 15.3 sec Above high normal 3 10.5 - 13.3 [facility] PPP 19.1 sec Above high normal 3 10.5 - 13.3 [facility] IN[facility] 1.7 Above high normal 3 0.8 - 1.1 [facility] History of Medication Use Medication Directions Dispensed Refills Start Date End Date [facility] sulfamethoxazole-tri methoprim (BACTRIM DS;CO-TRIMOXAZOLE DS) 800-160 mg per tablet Take 1 tablet by mouth 2 (two) times daily for 5 days. 09/09/2024 active ELIQUIS 5 mg Tab tablet Take 1 tablet (5 mg total) by mouth every 12 (twelve) hours. 08/18/2024 active warfarin (COUMADIN) 1 mg tablet Take 1 tablet (1 mg total) by mouth 1 (one) time each day with dinner. In combination with 2mg tablets as directed by provider. 03/18/2024 active warfarin (COUMADIN) 2 mg tablet Take 1 tablet (2 mg total) by mouth 1 (one) time each day. In combination with 1mg tablets as directed by provider. 02/02/2024 06/18/19 25 active warfarin (COUMADIN) 2 mg tablet Take 1 tablet (2 mg total) by mouth 1 (one) time each day. 02/02/2024 03/04/20 24 active warfarin (COUMADIN) 2 MG tablet TAKE 1 TABLET BY MOUTH ONCE DAILY ALTERNATING WITH 1 MG DIRECTED 10/13/2023 active Olopatadine HCl (Pataday) 0.2 % Solution ophthalmic solution Administer 1 drop to the right eye daily. 09/06/2023 active nitroglycerin (NITROSTAT) SL tablet 0.4 mg 0.4 mg, Sublingual, Every 5 min PRN, chest pain, Starting on Fri08/27/23 at 0047, For 3 dosesMax 3 tablets per 15-minute period. 08/27/2023 active ciprofloxacin (CIPRO) 500 MG tablet Take 1 tablet (500 mg total) by mouth 2 (two) times a day. 06/02/2023 06/10/19 24 active nitrofurantoin monohydrate (MACROBID) 100 MG capsule Take 1 capsule (100 mg total) by mouth 2 (two) times a day with meals. Dispense generic equivalent of MACROBID 03/03/2023 10/22/19 active buPROPion (WELLBUTRIN XL) 300 MG 24 hr tablet Take 1 tablet by mouth nightly 01/06/2023 active enoxaparin (Lovenox) 80 MG/0.8ML SOSY Discard 0.1 ml, then inject 0.7 ml (70 mg) SQ every 12 hours 12/25/2022 08/12/19 active acetaminophen (TYLENOL) 500 MG tablet Take 1 tablet (500 mg total) by mouth 4 times daily (every 6 hours) as needed for mild pain. 12/25/2022 01/26/20 active oxyCODONE (ROXICODONE) 5 MG immediate release tablet Take 1 tablet (5 mg total) by mouth 4 times daily (every 6 hours) as needed for moderate pain or severe pain. Max Daily Amount: 20 mg 12/25/2022 12/30/19 active enoxaparin (LOVENOX) 80 MG/0.8ML injection Inject 0.8 mL (80 mg total) under the skin twice daily (every 12 hours). 12/25/2022 active enoxaparin (Lovenox) 80 MG/0.8ML SOSY Discard 0.1 ml, then inject 0.7 ml (70 mg) SQ every 12 hours 12/25/2022 active enoxaparin (LOVENOX) 80 MG/0.8ML injection Discard 0.1 ml, then inject 0.7 ml (70 mg) SQ every 12 hours 12/19/2022 01/09/20 aborted oxyCODONE-acetaminop hen (PERCOCET) 5-325 mg per tablet Take 1 tablet by mouth 4 times daily (every 6 hours) as needed. for pain 11/29/2022 01/09/20 active oxyCODONE-acetaminop hen (PERCOCET) 5-325 MG per tablet Take 1 tablet by mouth every 6 (six) hours as needed for pain. 11/28/2022 08/12/19 active oxyCODONE-acetaminop hen (PERCOCET) 5-325 MG per tablet Take 1 tablet by mouth every 6 (six) hours as needed for pain. 11/28/2022 active warfarin (Coumadin) 2 MG tablet Take 1 tablet (2 mg total) by mouth daily. 11/26/2022 active warfarin (COUMADIN) 2 MG tablet Take 1 tablet (2 mg total) by mouth daily. 11/26/2022 active cephalexin (KEFLEX) 500 MG capsule Take 1 capsule (500 mg total) by mouth 2 (two) times a day. 05/16/2022 02/29/20 24 active cyclobenzaprine (FLEXERIL) 10 MG tablet Take 1 tablet (10 mg total) by mouth every evening. 02/12/2022 08/12/19 24 active cyclobenzaprine (FLEXERIL) 10 MG tablet Take 1 tablet (10 mg total) by mouth every evening. 02/12/2022 active cyclobenzaprine (FLEXERIL) 10 MG tablet Take 1 tablet (10 mg total) by mouth nightly. 02/11/2022 12/11/19 23 active warfarin (COUMADIN) 1 mg tablet Take 1 mg (1 tab) once per week per dosing instructions. 01/01/2022 03/18/19 25 active warfarin (COUMADIN) 1 mg tablet Take 1 mg (1 tab) once per week per dosing instructions. 01/01/2022 active warfarin (COUMADIN) 1 MG tablet Take 1 mg (1 tab) once per week per dosing instructions. 01/01/2022 active warfarin (COUMADIN) 1 MG tablet Take 1 mg (1 tab) once per week per dosing instructions. 01/01/2022 active buPROPion (WELLBUTRIN XL) 300 MG 24 hr tablet TAKE 1 TABLET BY MOUTH ONCE DAILY. SWALLOW WHOLE. DO NOT CRUSH CHEW, OR DIVIDE. 10/04/2021 active cetirizine (ZyrTEC) 10 MG tablet Take 1 tablet (10 mg total) by mouth daily. 08/30/2021 12/11/19 active fluticasone (FloNASE) 50 mcg/spray nasal spray 1 spray into each nostril daily. 08/30/2021 12/11/19 active meclizine (ANTIVERT) 25 MG tablet Take 1 tablet (25 mg total) by mouth 3 (three) times a day as needed for dizziness. 08/30/2021 12/11/19 23 active buPROPion (WELLBUTRIN XL) 300 MG 24 hr tablet TAKE 1 TABLET BY MOUTH ONCE DAILY SWALLOW WHOLE DO NOT CRUSH, CHEW OR DIVIDE 04/17/2021 active buPROPion (WELLBUTRIN XL) 300 MG 24 hr tablet TAKE 1 TABLET BY MOUTH ONCE DAILY SWALLOW WHOLE DO NOT CRUSH, CHEW OR DIVIDE 04/17/2021 active buPROPion XL (WELLBUTRIN XL) 300 mg 24 hr tablet TAKE 1 TABLET BY MOUTH ONCE DAILY SWALLOW WHOLE DO NOT CRUSH, CHEW OR DIVIDE 04/17/2021 active buPROPion XL (WELLBUTRIN XL) 300 mg 24 hr tablet TAKE 1 TABLET BY MOUTH ONCE DAILY SWALLOW WHOLE DO NOT CRUSH, CHEW OR DIVIDE 04/17/2021 active warfarin (COUMADIN) 1 MG tablet Take 2 tablets (2 mg total) by mouth daily. 09/11/2020 active warfarin (COUMADIN) 5 MG tablet Take 1 tablet (5 mg total) by mouth daily as needed. 09/02/2020 suspended buPROPion HCl TABS buPROPion HCl TABS Refills: 0Active completed buPROPion XL (WELLBUTRIN XL) 300 mg 24 hr tablet Take 1 tablet (300 mg total) by mouth every morning. active Medication Administration not documented Medication Administration not documented completed Allergies Allergen Reaction Severity Comment Documented Date Source Statu s LATEX ITCHING 12/25/2022 [facility] active ADHESIVE TAPE RASH 10/26/2012 [facility] active ADHESIVE TAPE-SILICONES RASH 10/26/2012 [facility] active ADHESIVES/TAPE RASH/DERMATITIS 10/26/2012 [facility] active ADHESIVE RASH [facility] Problems Problem Status Onset Date Problem Type Date of Resolution Source Encounter for monitoring Coumadin therapy active EncounterDiagnosisAct [facility] RAN Acute cystitis with hematuria active EncounterDiagnosisAct [facility] EUC Hypercoagulable state (CMS/HCC) active EncounterDiagnosisAct [facility]_ [facility] Factor 5 Leiden mutation, heterozygous (CMS/HCC) active EncounterDiagnosisAct [facility] LUISA Pain of upper abdomen active EncounterDiagnosisAct [facility] LUISA Hypercoagulable state active 2014-10-25 ProblemAct [facility] Factor 5 Leiden mutation, heterozygous active 2014-10-25 ProblemAct [facility] Clinical depression active 2014-10-25 ProblemAct [facility] Anxiety state active 2014 ProblemAct [facility] Idiopathic scoliosis and kyphoscoliosis active 2014-04-27 ProblemAct [facility] penitentiary (current) use of anticoagulants active EncounterDiagnosisAct [facility] Pulmonary embolism active 2010-10-26 ProblemAct [facility] Symptomatic cholelithiasis active 2022-12-10 ProblemAct [facility] Right shoulder pain active 2022-02-14 ProblemAct [facility] Overweight (BMI 25.0-29.9) active 2022-12-18 ProblemAct [facility] Fibromuscular dysplasia active 2023-07-02 ProblemAct [facility] Blood coagulation disorder active 2012-11-02 ProblemAct [facility] Weakness active 2022-02-14 ProblemAct [facility] Cervicalgia active 2022-02-14 ProblemAct [facility] Urinary tract infection symptoms active [facility]DiagnosisAct [facility] Acute cystitis without hematuria active En[facility] Immunizations Vaccine Date Source Lot Number Status Zoster Vaccine Recombinant (Shingrix) 03/06/2023 CCT [id number] completed Zoster Vaccine Recombinant (Shingrix) 11/11/2022 CCT [id number] completed [employer] SARS-CoV-2 COVID-19, mRNA, LNP-S, preservative free 03[facility]29[facility]2021 [id number] completed Influenza, Unspecified 01/04/2020 CCT co mpleted Influenza Inactivated/Split Preservative Free IM 11/18/2018 [facility] completed Influenza, Quadrivalent (FLU CELVAX) MDCK, Preservative Free IM 11/18/2018 CCT [id number] completed Influenza, Unspecified 11/18/2018 CCT [id number] co mpleted Tdap 04/05/2016 CCT [id number] completed Tdap 02/12/2007 [facility] completed Encounters Encounter Type Encounter Reason Primary Diagnosis Location Date Ambulatory Acute cystitis Acute cystitis [facility] 09/09/2024 Ambulatory Upper abdominal pain , unspecified Upper abdominal pain, unspecified [facility] 03/18/2024 Ambulatory Other pulmonary embolism without acute cor pulmonale Other pulmonary embolism without acute cor pulmonale [facility] 03/16/2024 Ambulatory Encounter for therapeutic drug level monitoring Encounter for therapeutic drug level monitoring [facility] 03/16/2024 Ambulatory Urinary Problem Urinary Problem [employer] [facility] 02/21/2024 Ambulatory Activated protein C resistance Activated protein C resistance [facility] 01/13/2024 Ambulatory Activated protein C resistance Activated protein C resistance [facility] 01/13/2024 Ambulatory Activated protein C resistance Activated protein C resistance [facility] 01/06/2024 Ambulatory Activated protein C resistance Activated protein C resistance [facility] 12/30/2023 Ambulatory Activated protein C resistance Activated protein C resistance [facility] 12/23/2023 Ambulatory Activated protein C resistance Activated protein C resistance [facility] 12/16/2023 Ambulatory Activated protein C resistance Activated protein C resistance [facility] 12/09/2023 Ambulatory Activated protein C resistance Activated protein C resistance [facility] 12/02/2023 Ambulatory Activated protein C resistance Activated protein C resistance [facility] 12/02/2023 Ambulatory Activated protein C resistance Activated protein C resistance [facility] 11/25/2023 Ambulatory Activated protein C resistance Activated protein C resistance [facility] 11/18/2023 Ambulatory Personal history of pulmonary embolism Personal history of pulmonary embolism [facility] 11/11/2023 Ambulatory Activated protein C resistance Activated protein C resistance [facility] 11/04/2023 Ambulatory Personal history of pulmonary embolism Personal history of pulmonary embolism [facility] 10/28/2023 Ambulatory Personal history of pulmonary embolism Personal history of pulmonary embolism [facility] 10/21/2023 Ambulatory Dysuria Dysuria [employer] 10/16/2023 Ambulatory Activated protein C resistance Activated protein C resistance [facility] 10/14/2023 Ambulatory Activated protein C resistance Activated protein C resistance [facility] 10/07/2023 Ambulatory Activated protein C resistance Activated protein C resistance [facility] 09/30/2023 Ambulatory Activated protein C resistance Activated protein C resistance [facility] 09/23/2023 Ambulatory Activated protein C resistance Activated protein C resistance [facility] 09/16/2023 Ambulatory Personal history of pulmonary embolism Personal history of pulmonary embolism [facility] 09/09/2023 Ambulatory Eye Problem Eye Problem [employer] 09/06/2023 Ambulatory Personal history of pulmonary embolism Personal history of pulmonary embolism [facility] 09/02/2023 Emergency Chest pain, unspecified Chest pain, unspecified [facility] 08/26/2023 Ambulatory Personal history of pulmonary embolism Personal history of pulmonary embolism [facility] 08/26/2023 Ambulatory Personal history of pulmonary embolism Personal history of pulmonary embolism [facility] 08/19/2023 Ambulatory Activated protein C resistance Activated protein C resistance [facility] 08/12/2023 Ambulatory Personal history of pulmonary embolism Personal history of pulmonary embolism [facility] 08/12/2023 Ambulatory Personal history of pulmonary embolism Personal history of pulmonary embolism [facility] 08/05/2023 Ambulatory Personal history of pulmonary embolism Personal history of pulmonary embolism [facility] 07/29/2023 Ambulatory Personal history of pulmonary embolism Personal history of pulmonary embolism [facility] 07/22/2023 Ambulatory Personal history of pulmonary embolism Personal history of pulmonary embolism [facility] 07/15/2023 Ambulatory Personal history of pulmonary embolism Personal history of pulmonary embolism [facility] 07/08/2023 Ambulatory 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 [employer] 07/02/2023 Ambulatory 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 [employer] 07/02/2023 Ambulatory penitentiary (current) use of anticoagulants penitentiary (current) use of anticoagulants [facility] 07/01/2023 Ambulatory Activated protein C resistance Activated protein C resistance [facility] 06/24/2023 Ambulatory Activated protein C resistance Activated protein C resistance [facility] 06/17/2023 Ambulatory Activated protein C resistance Activated protein C resistance [facility] 06/10/2023 Ambulatory Activated protein C resistance Activated protein C resistance [facility] 06/03/2023 Ambulatory Unspecified abnormal findings in urine Unspecified abnormal findings in urine [employer] 06/02/2023 Ambulatory emt intermediate (current) use of anticoagulants penitentiary (current) use of anticoagulants [facility] 05/27/2023 Ambulatory Activated protein C resistance Activated protein C resistance [facility] 05/20/2023 Ambulatory Activated protein C resistance Activated protein C resistance [facility] 05/13/2023 Ambulatory Activated protein C resistance Activated protein C resistance [facility] 05/06/2023 Ambulatory Activated protein C resistance Activated protein C resistance [facility] 04/28/2023 Emergency Chest pain, unspecified Chest pain, unspecified [facility] 04/23/2023 Ambulatory Activated protein C resistance Activated protein C resistance [facility] 04/22/2023 Ambulatory emt intermediate (current) use of anticoagulants emt intermediate (current) use of anticoagulants [facility] 04/15/2023 Ambulatory emt intermediate (current) use of anticoagulants penitentiary (current) use of anticoagulants [facility] 04/15/2023 Ambulatory emt intermediate (current) use of anticoagulants emt intermediate (current) use of anticoagulants [facility] 04/08/2023 Ambulatory Activated protein C resistance Activated protein C resistance [facility] 04/01/2023 Ambulatory penitentiary (current) use of anticoagulants penitentiary (current) use of anticoagulants [facility] 04/01/2023 Ambulatory Activated protein C resistance Activated protein C resistance [facility] 04/01/2023 Ambulatory emt intermediate (current) use of anticoagulants emt intermediate (current) use of anticoagulants [facility] 03/25/2023 Ambulatory penitentiary (current) use of anticoagulants emt intermediate (current) use of anticoagulants [facility] 03/18/2023 Ambulatory penitentiary (current) use of anticoagulants penitentiary (current) use of anticoagulants [facility] 03/11/2023 Ambulatory Encounter for immunization Encounter for immunization [facility] 03/06/2023 Ambulatory penitentiary (current) use of anticoagulants penitentiary (current) use of anticoagulants [facility] 03/04/2023 Ambulatory Acute cystitis without hematuria Acute cystitis without hematuria [facility] 03/03/2023 Ambulatory emt intermediate (current) use of anticoagulants penitentiary (current) use of anticoagulants [facility] 02/25/2023 Ambulatory emt intermediate (current) use of anticoagulants emt intermediate (current) use of anticoagulants [facility] 02/18/2023 Ambulatory penitentiary (current) use of anticoagulants emt intermediate (current) use of anticoagulants [facility] 02/11/2023 Ambulatory penitentiary (current) use of anticoagulants penitentiary (current) use of anticoagulants [facility] 02/05/2023 Ambulatory Encounter for therapeutic drug level monitoring Encounter for therapeutic drug level monitoring [facility] 01/29/2023 Ambulatory emt intermediate (current) use of anticoagulants penitentiary (current) use of anticoagulants [facility] 01/28/2023 Ambulatory Encounter for therapeutic drug level monitoring Encounter for therapeutic drug level monitoring [facility] 01/22/2023 Ambulatory Encounter for therapeutic drug level monitoring Encounter for therapeutic drug level monitoring [facility] 01/21/2023 Ambulatory penitentiary (current) use of anticoagulants penitentiary (current) use of anticoagulants [facility] 01/21/2023 Ambulatory Encounter for therapeutic drug level monitoring Encounter for therapeutic drug level monitoring [facility] 01/14/2023 Ambulatory emt intermediate (current) use of anticoagulants penitentiary (current) use of anticoagulants [facility] 01/14/2023 Ambulatory Encounter for therapeutic drug level monitoring Encounter for therapeutic drug level monitoring [facility] 01/10/2023 Ambulatory emt intermediate (current) use of anticoagulants emt intermediate (current) use of anticoagulants [facility] 01/09/2023 Ambulatory Calculus of gallbladder without cholecystitis without obstruction Calculus of gallbladder without cholecystitis without obstruction [facility] 01/08/2023 Ambulatory emt intermediate (current) use of anticoagulants penitentiary (current) use of anticoagulants [facility] 01/07/2023 Ambulatory [facility] 01/07/2023 Ambulatory Other primary thrombophilia Other primary thrombophilia [facility] 01/06/2023 Ambulatory Activated protein C resistance Activated protein C resistance [facility] 01/03/2023 Ambulatory Activated protein C resistance Activated protein C resistance [facility] 12/31/2022 Ambulatory penitentiary (current) use of anticoagulants emt intermediate (current) use of anticoagulants [facility] 12/31/2022 Ambulatory Activated protein C resistance Activated protein C resistance [facility] 12/27/2022 Ambulatory emt intermediate (current) use of anticoagulants emt intermediate (current) use of anticoagulants [facility] 12/27/2022 Ambulatory Calculus of gallbladder without cholecystitis without obstruction Calculus of gallbladder without cholecystitis without obstruction [employer] 12/25/2022 Ambulatory Activated protein C resistance Activated protein C resistance [facility] 12/18/2022 Ambulatory Encounter for other preprocedural examination Encounter for other preprocedural examination [employer] 12/18/2022 Ambulatory penitentiary (current) use of anticoagulants emt intermediate (current) use of anticoagulants [facility] 12/17/2022 Ambulatory Calculus of gallbladder without cholecystitis without obstruction Calculus of gallbladder without cholecystitis without obstruction [employer] 12/10/2022 Ambulatory [employer] 12/10/2022 Ambulatory Activated protein C resistance Activated protein C resistance [facility] 12/04/2022 Ambulatory Activated protein C resistance Activated protein C resistance [facility] 12/03/2022 Emergency Calculus of gallbladder without cholecystitis without obstruction Calculus of gallbladder without cholecystitis without obstruction [facility] 11/28/2022 Ambulatory Activated protein C resistance Activated protein C resistance [facility] 11/26/2022 Ambulatory Personal history of pulmonary embolism Personal history of pulmonary embolism [facility] 11/25/2022 Ambulatory Activated protein C resistance Activated protein C resistance [facility] 11/20/2022 Ambulatory Activated protein C resistance Activated protein C resistance [facility] 11/19/2022 Ambulatory Encounter for genera l adult medical examination without abnormal findings Encounter for general adult medical examination without abnormal findings [facility] 11/13/2022 Ambulatory Activated protein C resistance Activated protein C resistance [facility] 11/13/2022 Ambulatory Encounter for genera l adult medical examination without abnormal findings Encounter for general adult medical examination without abnormal findings [employer] 11/11/2022 Ambulatory [facility] 11/06/2022 Ambulatory Activated protein C resistance Activated protein C resistance [facility] 11/05/2022 Ambulatory [facility] 10/30/2022 Ambulatory Personal history of pulmonary embolism Personal history of pulmonary embolism [facility] 10/29/2022 Ambulatory Patient's noncompliance with other medical treatment and regimen due to unspecified reason Patient's noncompliance with other medical treatment and regimen due to unspecified reason [facility] 10/23/2022 Ambulatory Personal history of pulmonary embolism Personal history of pulmonary embolism [facility] 10/22/2022 Ambulatory Personal history of pulmonary embolism Personal history of pulmonary embolism [facility] 10/15/2022 Ambulatory Personal history of pulmonary embolism [facility] 10/08/2022 Ambulatory Personal history of pulmonary embolism [facility] 10/01/2022 Ambulatory Personal history of pulmonary embolism [facility] 09/24/2022 Ambulatory Personal history of pulmonary embolism [facility] 09/18/2022 Ambulatory Activated protei n C resistance [facility] 09/11/2022 Ambulatory Personal history of pulmonary embolism [facility] 09/10/2022 Ambulatory Personal history of pulmonary embolism [facility] 09/03/2022 Ambulatory Arterial fibromuscular dysplasia [employer] 08/07/2022 Ambulatory Arterial fibromuscular dysplasia [employer] 08/07/2022 Ambulatory Spondylosis with out myelopathy or radiculopathy, cervical region [employer] 06/27/2022 Ambulatory Abnormal finding s on diagnostic imaging of other specified body structures [employer] 06/12/2022 Ambulatory Unspecified abno rmal findings in urine [employer] 05/13/2022 Ambulatory Encounter for screening mammogram for malignant neoplasm of breast [employer] 03/21/2022 Ambulatory Cervicalgia [employer] 03/14/2022 Ambulatory Cervicalgia [employer] 03/12/2022 Ambulatory Cervicalgia [employer] 03/07/2022 Ambulatory Cervicalgia [employer] 03/05/2022 Ambulatory Cervicalgia [employer] 02/28/2022 Ambulatory Cervicalgia [employer] 02/26/2022 Ambulatory Cervicalgia [employer] 02/20/2022 Ambulatory Cervicalgia [employer] 02/19/2022 Ambulatory Cervicalgia [employer] 02/14/2022 Ambulatory Cervicalgia [employer] 02/11/2022 Ambulatory Dizziness and giddiness [employer] 08/30/2021 Ambulatory Contact with and (suspected) exposure to covid-19 [employer] 04/17/2021 Care Team Organization Name Specialty Phone Email Start Date End Da te [employer] NO PCP Primary Care 12/17/2024 [facility] 11/03/2024 [facility] 09/09/2024 [employer] 06/23/2024 [facility] [employer] 06/03/2024 08/30/19 [facility]2024 [facility] 03[facility]20/2024 [facility] 03[facility]18/2024 [facility] 03/16/2024 [facility] 01/17/2023 [facility] Primary Care 01/10/20232022 [facility] 09/11/2022 07/04/2024 [facility] 09/11/2022 09/11/2022 [facility] 09/10/202208/16 [facility] 09/05/2022 09/28/2024 [facility] 0 08/27/2022 08/27/2022 [facility] 02/14/202206/02 [facility] 01/16/2022 11/03/2023 [facility] 09/14/2021 09/14/2021 [employer] [facility] 08/30/202108/30
== END 2024-12-29 12:22 | disposition home or self-care (01) ==
LOC: HO.10HDL 12:21
DX: Z00.00 Encounter for general adult medical examination without abnormal findings (principal)
CPT/HCPCS: 36415; 80053; 80061; 81001; 82306; 83036; 84443; 85025

== ENCOUNTER 2025-02-09 08:12 | Outpatient (AMB) | payer OTHER, SELFPAY ==
--- NOTE | 2025-02-09 08:19 | A.OFFPC_ITS ---
Vital Signs 02/09/25 08:28 Height 5 ft 2 in Weight 162 lb 2 oz BMI 29.6 BP 102/68 Blood Pressure Location Lt brachial Position Sitting Respiration 18 Pulse 64 Pulse Source Pulse Oximeter Temp Source Temporal Artery Scan Pulse Oximetry (%) 96 Oxygen Delivery Method Room Air Intake Visit Reasons: annual exam Brass Cutter Required: No Accompanied by: Self / Same As Patient Allergies adhesive tape Adverse Reaction (Mild, Verified 02/09/25 08:49) Rash latex Adverse Reaction (Mild, Verified 02/09/25 08:49) Itching Medication List - Last Reconciled 02/09/25 by VENTURA Warner apixaban (Eliquis) 5 mg PO BID betamethasone dipropionate 0.05% 1 appl topical BID bupropion HCl XL 300 mg PO QAM trazodone 50 mg PO BEDTIME PRN Tobacco use date assessed: 02/09/25 Dental Screening Dental Screen Date: 02/09/25 Did you have a dental visit in the last 12 months?: No Did you have a dental problem in the last 6 months where you did not have access to dental care?: No Was dental information given to patient?: No HPI annual exam HPI Details Dentist:looking for new Dentist, went last year Eye: up to date Snellen: Right: Left: Corrected vision: yes, glasses STI screening: Colonoscopy: Done 1-2 years, removed polyps-appt in June to see gastro due bleeding hemorrhoids Pap Smer:partial histerectomy, has not been for years; needs OBGYN mammogram: LAST 2022-will need mammogram Shingles: Pneumonia:n/a PHQ-9: Flu: given in office today COVID: x4-got sick on the last one and stopped taking it Tdap: The patient thinks that she had a tetanus shot within 10 years Diet: Regular diet Exercise: Reports that she was walking but it is cold out [facility] Medical History (Updated 02/09/25 @ 09:26 by VENTURA Warner) Hemorrhoids Cervical arthritis History of colon polyps Breast cyst Recurrent UTI Pulmonary embolism Depression Anxiety Fibromyalgia AVM (arteriovenous malformation) brain Surgical History (Updated 12/23/24 @ 21:46 by VENTURA Warner) H/O: hysterectomy Family History (Updated 12/23/24 @ 21:31 by VENTURA Warner) Father Carotid artery calcification Diabetes mellitus Pacemaker Paternal Aunt Breast cancer Paternal Aunt Breast cancer Paternal Aunt Breast cancer Social History Household Members: Children Housing: House Alcohol intake: never Patient Tobacco Use Status: Never used Tobacco e-Cigarette/Vaping Use: Never Used Current occupational status: employed 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 1. Little interest or pleasure in doing things: not at all 2. Feeling down, depressed, or hopeless: not at all 3. Trouble falling or staying asleep, or sleeping too much: not at all 4. Feeling tired or having little energy: not at all 5. Poor appetite or overeating: not at all 6. Feeling bad about yourself - or that you are a failure or have let yourself or your family down: not at all 7. Trouble concentrating on things, such as reading the newspaper or watching television: not at all 8. Moving or speaking so slowly that other people could have noticed. Or the opposite - being so fidgety or restless that you have been moving around a lot more than usual: not at all 9. Thoughts that you would be better off or of hurting yourself in some way: not at all Total score: 0 Source: Developed by Drs. Brent Gutiérrez, Gloria Small, Rodolfo Barkley and colleagues, with an educational ange from [employer]. Thrive Questionnaire Date Thrive assessed: 02/09/25 I am a: Patient What is your living situation today?: I have a steady place to live Within the past 12 months, did the food you bought not last and you didn't have the money to get more?: I choose not to answer this question Within the past 12 months, did you worry whether your food would run out before you got money to buy more?: I choose not to answer this question Do you have trouble paying for medicines?: I choose not to answer this question Do you have trouble getting transportation to medical appointments?: I choose not to answer this question Do you have trouble paying your heating and electricity bill?: I choose not to answer this question Do you have trouble taking care of your child, family member or friend?: I choose not to answer this question Do you have trouble with day-to-day activities such as bathing, preparing meals, shopping, managing finances, etc.?: I choose not to answer this question Are you currently unemployed and looking for a job?: I choose not to answer this question Are you interested in more education?: I choose not to answer this question Please select the resources that you would like help with: None Currently or been in a relationship where the following occur: I choose not to answer THRIVE Score: 0 AUDIT C Alcohol Use Questionnaire (AUDIT-C) 1. How often do you have a drink containing alcohol?: Never 3. How often do you have six or more drinks on one occasion?: Never Total Score: 0 SANDRA-7 AMB Questionnaire SANDRA-7 Date SANDRA - 7 assessed: 02/09/25 Feeling nervous, anxious, or on edge: 2 = More than half the days Not being able to stop or control worryin = More than half the days Worrying too much about different things: 2 = More than half the days Trouble relaxin = More than half the days Being so restless that it is hard to sit still: 0 = Not at all Becoming easily annoyed or irritable: 2 = More than half the days Feeling afraid as if something awful might happen: 0 = Not at all Total SANDRA-7 score (0-4 normal; 5-9 mild; 10-14 moderate; 15-21 severe): 10 Source: Developed by Drs. Brent Gutiérrez, Gloria Small, Rodolfo Barkley and colleagues, with an educational ange from [employer]. Review of Systems Const Reports difficulty sleeping and Denies headache(s) Eyes Denies loss of vision ENT Reports vertigo (hx), Denies dizziness, Denies headache(s) and Denies sore throat Card Denies chest pain, Denies leg edema and Denies lightheadedness Resp Denies cough, Denies hemoptysis and Denies wheezing GI Denies abdominal pain, Denies melena, Denies constipation, Denies diarrhea and Denies vomiting Denies urinary frequency, Denies dysuria and Denies urinary urgency Musc Denies arthralgias, Denies joint swelling, Denies numbness and Denies tingling Neuro Denies Abnormal speech present, Denies behavioral changes, Reports vertigo (hx), Denies dizziness, Denies headache(s), Denies loss of vision, Denies memory loss, Denies numbness and Denies tingling Psych Reports abnormal sleep pattern, Reports anxiety, Denies behavioral changes, Reports depression, Denies memory loss, Denies panic attacks, Denies homicidal ideation and Denies suicidal ideation Santa/Lymph Denies easy bleeding and Denies easy bruising Aller/Immun Denies wheezing Physical exam (Primary Care) Vital Signs: Last Vital Signs Pulse 64 02/09/25 08:28 Resp 18 02/09/25 08:28 BP 102/68 02/09/25 08:28 Pulse Ox 96 02/09/25 08:28 Oxygen Delivery Method Room Air 02/09/25 08:28 BMI result Body Mass Index 29.6 Tobacco/Smoking Status: Tobacco use Status Tobacco use date assessed 02/09/25 02/09/25 08:34 Patient Tobacco Use Status Never used Tobacco 02/09/25 08:20 e-Cigarette/Vaping Use Never Used 02/09/25 08:20 PHQ-9: PHQ-9 Score PHQ-9: Total score 0 02/09/25 09:09 Thrive Assessment: Date of Thrive Assessment Date Thrive assessed 02/09/25 02/09/25 08:34 Currently or been in a relationship where the following occur: I choose not to answer Const General: healthy appearing, no acute distress, alert and awake Nutritional Appearance: well nourished Orientation/consciousness: oriented to person, oriented to place and oriented to time [facility] Ears: TM's normal bilaterally General nose exam: Normal nasal mucous membranes and turbinates present Eyes Conjunctivae: conjunctivae normal Sclerae: sclerae normal Pupils: Equal, round and reactive pupils present Neck Neck: Yes no lymphadenopathy and Yes no JVD Thyroid: Thyroid normal Carotids: no bruits Resp Effort & Inspection: normal respiratory effort and not tachypneic Auscultation: no crackles, no rales, no rhonchi and no wheezes Cardio Rate: regular rate Rhythm: regular rhythm Heart sounds: no murmurs and normal S1 and S2 GI Palpation (GI): Soft to palpation, nontender, no hepatomegaly and no splenomegaly Auscultation: normal bowel sounds Skin General skin exam: no rashes or lesions noted and dry skin Neuro General: oriented to person, oriented to place and oriented to time Cranial nerves: Yes Equal, round and reactive pupils present Speech: No Abnormal speech present Gait exam (Neuro): Normal gait present Motor exam (neuro): no tremor noted Extrem Right upper extremity: full ROM Left upper extremity: full ROM Right lower extremity: full ROM; no edema Left lower extremity: full ROM; no edema Psych Mental Status: mental status grossly normal Speech and movement: Normal speech and movement present Affect: normal affect Attitude: cooperative Thought process: Normal thought process present Office Procedures Flu Questionnaire Does the patient have a severe egg allergy?: No Does the patient have severe life threatening allergies?: No Does the patient have a fever or illness today?: No Has the patient ever had Guillain-[place] Syndrome?: No Has the patient ever had any past reaction to a flu shot?: No Immunizations Fluarix 6510-3729 (PF) 45 mcg (15 mcg x 3)/0.5 mL IM syringe Performing Provider: VENTURA Warner [facility] Administered by: Kalpana Pendleton RN on 02/09/25 09:09 Dose Route Admin Location Dispensed Lot Number Expiration Date [facility] Application Services Manager 0.5 mL IM Right Deltoid 0.5 mL [id number] 09/13/25 [id number] [employer] VIS Given Date VIS Provided VIS Publication Date 02/09/25 Single Vaccine 24 Eligibility Eligibility Date Funding Source Not [facility] Eligible 02/09/25 Private Results Reviewed Results Reviewed: Laboratory Tests 12/29/24 12:28 WBC 7.5 RBC 4.55 Hgb 14.3 Hct 43.4 MCV 95.4 MCH 31.4 MCHC 32.9 RDW 12.6 Plt Count 310 Sodium 141 Potassium 4.4 Chloride 108 Carbon Dioxide 28 Anion Gap 9 L BUN 20 H Creatinine 1.01 Estimated GFR 57 Fasting Glucose 82 Estimat Average Glucose 91 Hemoglobin A1c % 4.8 Calcium 9.1 Total Bilirubin 0.5 AST 21 ALT 18 Alkaline Phosphatase 64 Total Protein 7.1 Albumin 4.3 Triglycerides 83 Cholesterol 226 H LDL Cholesterol, Calc 157 H HDL Cholesterol 53 25-OH Vitamin D Total 16.0 L TSH 3.31 Urine Color Yellow Urine Appearance Clear Urine pH 5.5 Ur Specific [place] >= 1.030 H Urine Protein Negative Urine Glucose (UA) Negative Urine Ketones Negative Urine Blood Trace H Urine Nitrite Negative Ur Leukocyte Esterase Trace H Urine RBC >20 H Urine WBC 0-5 Ur Squamous Epith Cells 3-5 Urine Bacteria None Seen Hyaline Casts 0-2 Coding Diagnoses Annual physical exam Z00.00 Cyst of breast, unspecified laterality N60.09 Laterality: unspecified laterality Cervical arthritis M47.812 Pulmonary embolism without acute cor pulmonale, unspecified chronicity, unspecified pulmonary embolism type I26.99 Pulmonary embolism type: unspecified Chronicity: unspecified Acute cor pulmonale presence: without acute cor pulmonale Depression, unspecified depression type F32.A Depression Type: unspecified Anxiety F41.9 Hemorrhoids, unspecified hemorrhoid type K64.9 Hemorrhoid type: unspecified Menopause Z78.0 Vertigo R42 Insomnia, unspecified type G47.00 Insomnia type: unspecified Asymptomatic microscopic hematuria R31.21 Hematuria type: asymptomatic microscopic Assessment & Plan Assessment & Plan (1) Annual physical exam: Code(s): Z00.00 - Encounter for general adult medical examination without abnormal findings Category: Medical Plan: Preventative guideline and recent labs reviewed with patient. (2) Breast cyst: Code(s): N60.09 - Solitary cyst of unspecified breast Category: Medical Qualifiers: Laterality: unspecified laterality Qualified Code(s): N60.09 - Solitary cyst of unspecified breast Plan: Patient reports history of dense breasts requiring added imaging after each mammogram. Reports benign breast cyst that has been monitored. (3) Cervical arthritis: Code(s): M47.812 - Spondylosis without myelopathy or radiculopathy, cervical region Category: Medical Plan: Reports neck pain. Continue conservative measures, stretching, posturing and the used of OTC pain medication as needed (4) Pulmonary embolism: Code(s): I26.99 - Other pulmonary embolism without acute cor pulmonale Category: Medical Qualifiers: Pulmonary embolism type: unspecified Chronicity: unspecified Acute cor pulmonale presence: without acute cor pulmonale Qualified Code(s): I26.99 - Other pulmonary embolism without acute cor pulmonale Plan: Continue apixaban b.i.d.. Follow up with Hematology as scheduled (5) Depression: Code(s): F32.A - Depression, unspecified Category: Medical Qualifiers: Depression Type: unspecified Qualified Code(s): F32.A - Depression, unspecified Plan: Continue bupropion HCl XL 300 mg q.a.m. Consider refer the patient to Psychiatry to increase anxiety/depression recently Reports self increasing goes to 600 mg daily. Discussed with the patient that this is above the daily dosing, and she needs to be re-evaluated if her current regimen isn't working for her. (6) Anxiety: Code(s): F41.9 - Anxiety disorder, unspecified Category: Medical Plan: Same as above (7) Hemorrhoids: Code(s): K64.9 - Unspecified hemorrhoids Category: Medical Qualifiers: Hemorrhoid type: unspecified Qualified Code(s): K64.9 - Unspecified hemorrhoids Plan: The patient reports significant bleeding from hemorrhoids and has been advised to consult a lead furnace operator for further evaluation and management. In the interim, she is using vvyo-viu-cnnfnir Preparation H cream. She was evaluated in [facility]. Reports that an abdominal CT Scan done completed that showed no acute findings. (8) Menopause: Code(s): Z78.0 - Asymptomatic menopausal state Category: Medical Plan: Patient reports hot flashes. We will order hormone tests to further evaluate (9) Vertigo: Code(s): R42 - Dizziness and giddiness Category: Medical Plan: The patient experiences vertigo and has been evaluated by an ENT specialist, with exercises recommended to manage symptoms. (10) Insomnia: Code(s): G47.00 - Insomnia, unspecified Category: Medical Qualifiers: Insomnia type: unspecified Qualified Code(s): G47.00 - Insomnia, unspecified Plan: Reinforced sleep hygiene Start trazodone 50 mg at bedtime p.r.n. (11) Hematuria: Code(s): R31.9 - Hematuria, unspecified Category: Medical Qualifiers: Hematuria type: asymptomatic microscopic Qualified Code(s): R31.21 - Asymptomatic microscopic hematuria Orders: Orders Influenza [id number] Immunization Today Z23 - Encounter for immunization UA CC w/rflx Micro + Cult Today R31.21 - Asymptomatic microscopic hematuria UA CC w/rflx Micro + Cult 3 Months E55.9 - Vitamin D deficiency, unspecified, E78.5 - Hyperlipidemia, unspecified, F32.A - Depression, unspecified, F41.9 - Anxiety disorder, unspecified, G47.00 - Insomnia, unspecified, I26.99 - Other pulmonary embolism without acute cor pulmonale, R31.21 - Asymptomatic microscopic hematuria, R42 - Dizziness and giddiness TSH reflex Free T4 3 Months E55.9 - Vitamin D deficiency, unspecified, E78.5 - Hyperlipidemia, unspecified, F32.A - Depression, unspecified, F41.9 - Anxiety disorder, unspecified, G47.00 - Insomnia, unspecified, I26.99 - Other pulmonary embolism without acute cor pulmonale, R31.21 - Asymptomatic microscopic hematuria, R42 - Dizziness and giddiness Vitamin D 25-OH Total 3 Months E55.9 - Vitamin D deficiency, unspecified, E78.5 - Hyperlipidemia, unspecified, F32.A - Depression, unspecified, F41.9 - Anxiety disorder, unspecified, G47.00 - Insomnia, unspecified, I26.99 - Other pulmonary embolism without acute cor pulmonale, R31.21 - Asymptomatic microscopic hematuria, R42 - Dizziness and giddiness Urine Cytology Today R31.21 - Asymptomatic microscopic hematuria Lipid Panel 3 Months E55.9 - Vitamin D deficiency, unspecified, E78.5 - Hyperlipidemia, unspecified, F32.A - Depression, unspecified, F41.9 - Anxiety disorder, unspecified, G47.00 - Insomnia, unspecified, I26.99 - Other pulmonary embolism without acute cor pulmonale, R31.21 - Asymptomatic microscopic [place], R42 - Dizziness and giddiness Comprehensive [place]. Panel Fast 3 Months E55.9 - Vitamin D deficiency, unspecified, E78.5 - Hyperlipidemia, unspecified, F32.A - Depression, unspecified, F41.9 - Anxiety disorder, unspecified, G47.00 - Insomnia, unspecified, I26.99 - Other pulmonary embolism without acute cor pulmonale, R31.21 - Asymptomatic microscopic hematuria, R42 - Dizziness and giddiness Medications: New atorvastatin (Lipitor) 10 mg PO BEDTIME 90 tabs 3RF cholecalciferol (vitamin D3) 50 mcg PO DAILY 90 caps 3RF
--- OUTSIDE RECORDS SUMMARY | 2025-02-09 08:27 | XMS_ITS | Clinical Summary ---
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
--- OUTSIDE RECORDS SUMMARY | 2025-02-09 08:27 | XMS_ITS | Encounter Summary ---
Author Organization [facility] Address [address] [place] [address] Care Team Providers Care Assembly Hand Name Role Phone Thelma Camp Primary Care Provider Lorrie Solis MD Primary Care Provider [phone] Laly Gomez MD Unavailable Lorrie Solis MD Unavailable Lorrie Solis MD Unavailable Renee Walker Unavailable Lorrie Solis MD Primary Care Provider [phone] Pcp, No Primary Care Provider Unavailabl e Encounter Details Date Type Department Care Team (Late st Contact Info) Description 09/06/2016 Scanned Document [address] [place] [phone] Provider, Generic Social History Tobacco Use [...] on filedocumented in this encounter Care Teams Assembly Hand Relationship Specialty Start Date End Date Thelma Camp PA PCP - General Internal Medicine 11/03/15 04/02/17 Lorrie Solis MD [address] [place] [address] PCP - General Internal Medicine 04/03/17 06/13/24 Lorrie Solis MD [address] [place] [address] PCP - [employer] Attributed 02/14/19 03/16/20 Lorrie Solis MD [address] [place] [address] PCP - [employer] Commercial Attributed 04/17/20 04/16/23 Lorrie Solis MD [address] [place] [address] PCP - General Internal Medicine 06/28/24 09/23/24 Pcp, No PCP - General General Medicine 09/24/24 Laly Gomez MD [address] [place] [address] Obstetrics and Gynecology 01/01/19 Renee Walker PA [address] [place] [address] Physician Jewelry Racker Medical Oncology 12/17/22 documented as of this encounter
--- OUTSIDE RECORDS SUMMARY | 2025-02-09 08:27 | XMS_ITS | Encounter Summary ---
Author Organization [facility] Address [address] [place] [address] Care Team Providers Care Emergency Man Name Role Phone Lorrie Solis MD Primary Care Provider [phone] Laly Gomez MD Unavailable [phone] Lorrie Solis MD Unavailable [phone] Lorrie Solis MD Unavailable [phone] Renee Walker Unavailable [phone] Lorrie Solis MD Primary Care Provider [phone] Pcp, No Primary Care Provider Unavailabl e Encounter Details Date Type Department Care Team (Late st Contact Info) Description 08/22/2017 Scanned Document [address] [phone] Provider, Generic Social History Tobacco [...] on filedocumented in this encounter Care Teams Emergency Man Relationship Specialty Start Date End Date Lorrie Solis MD [address] [place] [address] PCP - General Internal Medicine 04/03/17 06/13/24 Lorrie Slois MD [address] [place] [address] PCP - [employer] Attributed 02/14/19 03/16/20 Lorrie Solis MD [address] [place] [address] PCP - [employer] Commercial Attributed 04/17/20 04/16/23 Lorrie Solis MD [address] [place] [address] PCP - General Internal Medicine 06/28/24 09/23/24 Pcp, No PCP - General General Medicine 09/24/24 Laly Gomez MD [address] [place] [address] Obstetrics and Gynecology 01/01/19 Renee Walker PA [address] [place] [address] Physician Taker Down Medical Oncology 12/17/22 documented as of this encounter
--- OUTSIDE RECORDS SUMMARY | 2025-02-09 08:27 | XMS_ITS | Encounter Summary ---
Author Organization [facility] Address [address] [place] [address] Care Team Providers Care Emergency Worker Name Role Phone Lorrie Solis MD Primary Care Provider [phone] Laly Gomze MD Unavailable [phone] Renee Walker Unavailable [phone] Lorrie Solis MD Primary Care Provider [phone] Pcp, No Primary Care Provider Unavailabl e Encounter Details Date Type Department Care Team (Late st Contact Info) Description 10/16/2023 Scanned Document [address] [place] [phone] Provider, Generic Social History Tobacco Use [...] filedocumented in this encounter Care Teams Emergency Worker Relationship Specialty Start Date End Date Lorrie Solis MD [address] [place] [address] PCP - General Internal Medicine 04/03/17 06/13/24 Lorrie Solis MD [address] [place] [id number] PCP - General Internal Medicine 06/28/24 09/23/24 Pcp, No PCP - General General Medicine 09/24/24 Laly Gomez MD [address] [place] [address] Obstetrics and Gynecology 01/01/19 Renee Walker PA [address] [place] [address] Physician Flight Dispatcher Medical Oncology 12/17/22 documented as of this encounter
--- OUTSIDE RECORDS SUMMARY | 2025-02-09 08:27 | XMS_ITS | Encounter Summary ---
Author Organization Formerly [facility] Address [address] [place] [address] Care Team Providers Care Dental Scheduler Name Role Phone Lorrie Solis MD Primary Care Provider +[phone]- [phone] Laly Gomez MD Unavailable Lorrie Solis MD Unavailable [phone] Renee Walker Unavailable Lorrie Solis MD Primary Care Provider +1- [phone] Pcp, No Primary Care Provider Unavailabl e Encounter Details Date Type Department Care Team (Late st Contact Info) Description 06/13/2022 Scanned Document [facility] PRIMARY [facility]ARE SCAN Lorrie Solis MD [address] [place] [address] Social History Tobacco Use Types Packs/Day Years [...] on filedocumented in this encounter Care Teams Dental Scheduler Relationship Specialty Start Date End Date Lorrie Solis MD [address] [place] [address] PCP - General Internal Medicine 04/03/17 06/13/24 Lorrie Solis MD [address] [place] [address] PCP - [employer] Commercial Attributed 04/17/20 04/16/23 Lorrie Solis MD [address] [place] [address] PCP - General Internal Medicine 06/28/24 09/23/24 Pcp, No PCP - General General Medicine 09/24/24 Laly Gomez MD [address] [place] [address] Obstetrics and Gynecology 01/01/19 Renee Walker PA [address] [place] [address] Physician Culinary Chef Medical Oncology 12/17/22 documented as of this encounter
--- OUTSIDE RECORDS SUMMARY | 2025-02-09 08:27 | XMS_ITS | Encounter Summary ---
Author Organization [facility] Address [address] [place] [address] Care Team Providers Care Hoop Cutter Name Role Phone Lorrie Solis MD Primary Care Provider +[phone]- [phone] Laly Gomez MD Unavailable [phone] Renee Walker Unavailable [phone] Lorrie Solis MD Primary Care Provider +[phone]- [phone] Pcp, No Primary Care Provider Unavailabl e Encounter Details Date Type Department Care Team (Late st Contact Info) Description 10/16/2023 Scanned Document [address] [place] [phone] Provider, Generic Social History Tobacco Use [...] on filedocumented in this encounter Care Teams Hoop Cutter Relationship Specialty Start Date End Date Lorrie Solis MD [address] [place] [address] PCP - General Internal Medicine 04/03/17 06/13/24 Lorrie Solis MD [address] [place] [id number] PCP - General Internal Medicine 06/28/24 09/23/24 Pcp, No PCP - General General Medicine 09/24/24 Laly Gomez MD [address] [place] [address] Obstetrics and Gynecology 01/01/19 Renee Walker PA [address] [place] [address] Physician Tourist Home Keeper Medical Oncology 12/17/22 documented as of this encounter
--- OUTSIDE RECORDS SUMMARY | 2025-02-09 08:27 | XMS_ITS | Clinical Summary ---
Author Organization [address] [place] [address] Care Team Providers Care Packager Hand Name Role Phone Pcp, Does Not Have [...] to complete this topic Insurance Care Teams Packager Hand Relationship Specialty Start Date End Date Pcp, Does Not Have A PCP - General 09/09/24
--- OUTSIDE RECORDS SUMMARY | 2025-02-09 08:27 | XMS_ITS | Encounter Summary ---
Author Organization [facility] Address [address] [place] [address] Care Team Providers Care Electric Tool Repairer Name Role Phone Mercy Bunch MD Primary Care Provider Thelma Camp Primary Care Provider Lorrie Solis MD Primary Care Provider [phone]- [phone] Laly Gomez MD Unavailable Lorrie Solis MD Unavailable Lorrie Solis MD Unavailable Renee Walker Unavailable [phone] oLrrie Solis MD Primary Care Provider [phone]- [phone] Pcp, No Primary Care Provider Unavailabl e Encounter Details Date Type Department Care Team (Late st Contact Info) Description 05/18/2014 Scanned Document [address] [place] [phone] Provider, Generic Social History Tobacco Use Types [...] on filedocumented in this encounter Care Teams Electric Tool Repairer Relationship Specialty Start Date End Date Mercy Bunch MD PCP - General Internal Medicine 10/20/14 11/02/15 Thelma Camp PA PCP - General Internal Medicine 11/03/15 04/02/17 Lorrie Solis MD [address] [place] [address] PCP - General Internal Medicine 04/03/17 06/13/24 Lorrie Slois MD [address] [place] [address] PCP - [employer] Attributed 02/14/19 03/16/20 Lorrie Solis MD [address] [place] [address] PCP - [employer] Commercial Attributed 04/17/20 04/16/23 Lorrie Solis MD [address] [place] [address] PCP - General Internal Medicine 06/28/24 09/23/24 Pcp, No PCP - General General Medicine 09/24/24 Laly Gomez MD [address] [place] [address] Obstetrics and Gynecology 01/01/19 Renee Walker PA [address] [place] [address] Physician Record Cutter Medical Oncology 12/17/22 documented as of this encounter
--- OUTSIDE RECORDS SUMMARY | 2025-02-09 08:27 | XMS_ITS | Encounter Summary ---
Author Organization [facility] Address [address] [place] [address] Care Team Providers Care Metal Mockup Maker Name Role Phone Lorrie Solis MD Primary Care Provider [phone]- [phone] Laly Gomez MD Unavailable [phone] Lorrie Solis MD Unavailable Renee Walker Unavailable [phone] Lorrie Solis MD Primary Care Provider [phone]- [phone] Pcp, No Primary Care Provider Unavailabl e Encounter Details Date Type Department Care Team (Late st Contact Info) Description 06/14/2022 Scanned Document [facility] PRIMARY CARE SCAN Lorrie Solis MD [address] [place] [address] Social History Tobacco Use Types Packs/Day Years [...] on filedocumented in this encounter Care Teams Metal Mockup Maker Relationship Specialty Start Date End Date Lorrie Solis MD [address] [place] [address] PCP - General Internal Medicine 04/03/17 06/13/24 Lorrie Solis MD [address] [place] [address] PCP - [employer] Commercial Attributed 04/17/20 04/16/23 Lorrie Solis MD [address] [place] [address] PCP - General Internal Medicine 06/28/24 09/23/24 Pcp, No PCP - General General Medicine 09/24/24 Laly Gomez MD [address] [place] [address] Obstetrics and Gynecology 01/01/19 Renee Walker PA [address] [place] [address] Physician Bench Worker Binding Medical Oncology 12/17/22 documented as of this encounter
--- OUTSIDE RECORDS SUMMARY | 2025-02-09 08:27 | XMS_ITS | Encounter Summary ---
Author Organization [facility] Address [address] [place] [address] Care Team Providers Care Senior Field Service Engineer Name Role Phone Lorrie Solis MD Primary Care Provider [phone]- [phone] Laly Gomez MD Unavailable Lorrie Solis MD Unavailable Renee Walker Unavailable [phone] Lorrie Solis MD Primary Care Provider [phone]- [phone] Pcp, No Primary Care Provider Unavailabl e Encounter Details Date Type Department Care Team (Late st Contact Info) Description 12/12/2022 Scanned Document [facility] Colorectal Surgery [place] 85 [facility] [address] [place] [phone] Renee Walker, [place] [address] [facility] 107 [place], [place] [id number] Social History Tobacco Use Types Packs/Day Years [...] on filedocumented in this encounter Care Teams Senior Field Service Engineer Relationship Specialty Start Date End Date Lorrie Solis MD [address] [place] [address] PCP - General Internal Medicine 04/03/17 06/13/24 Lorrie Solis MD [address] [place] [address] PCP - [employer] Commercial Attributed 04/17/20 04/16/23 Lorrie Solis MD [address] [place] [address] PCP - General Internal Medicine 06/28/24 09/23/24 Pcp, No PCP - General General Medicine 09/24/24 Laly Gomez MD [address] [place] [address] Obstetrics and Gynecology 01/01/19 Renee Walker PA [address] [place] [address] Physician Statistical Programmer Medical Oncology 12/17/22 documented as of this encounter
--- OUTSIDE RECORDS SUMMARY | 2025-02-09 08:27 | XMS_ITS | Encounter Summary ---
Author Organization [facility] Address [address] [place] [address] Care Team Providers Care Lead Android Developer Name Role Phone Lorrie Solis MD Primary Care Provider [phone]- [phone] Laly Gomez MD Unavailable Lorrie Solis MD Unavailable Renee Walker Unavailable Lorrie Solis MD Primary Care Provider [phone]- [phone] Pcp, No Primary Care Provider Unavailabl e Encounter Details Date Type Department Care Team (Late st Contact Info) Description 05/03/2020 Scanned Document [address] [phone] Lorrie Solis MD [address] [place] [phone] Social History Tobacco Use Types Packs/Day Years [...] on filedocumented in this encounter Care Teams Lead Android Developer Relationship Specialty Start Date End Date Lorrie Solis MD [address] [place] [address] PCP - General Internal Medicine 04/03/17 06/13/24 Lorrie Solis MD [address] [place] [address] PCP - [employer] Commercial Attributed 04/17/20 04/16/23 Lorrie Solis MD [address] [place] [address] PCP - General Internal Medicine 06/28/24 09/23/24 Pcp, No PCP - General General Medicine 09/24/24 Laly Gomez MD [address] [place] [address] Obstetrics and Gynecology 01/01/19 Renee Walker PA [address] [place] [address] Physician Work Order Clerk Medical Oncology 12/17/22 documented as of this encounter
--- OUTSIDE RECORDS SUMMARY | 2025-02-09 08:27 | XMS_ITS | Encounter Summary ---
Author Organization [facility] Address [address] [place] [address] Care Team Providers Care Plate Mill Mill Hand Name Role Phone Mercy Bunch MD Primary Care Provider Thelma Camp Primary Care Provider Lorrie Solis MD Primary Care Provider [phone]- [phone] Laly Gomez MD Unavailable [phone] Lorrie Solis MD Unavailable Lorrie Solis MD Unavailable Renee Walker Unavailable Lorrie Solis MD Primary Care Provider [phone]- [phone] Pcp, No Primary Care Provider Unavailabl e Encounter Details Date Type Department Care Team (Late st Contact Info) Description 10/25/2014 Scanned Document [address] [place] [phone] Provider, Generic Social History Tobacco Use Types [...] on filedocumented in this encounter Care Teams Plate Mill Mill Hand Relationship Specialty Start Date End Date Mercy Bunch MD PCP - General Internal Medicine 10/20/14 11/02/15 Thelma Camp PA PCP - General Internal Medicine 11/03/15 04/02/17 Lorrie Solis MD [address] [place] [address] PCP - General Internal Medicine 04/03/17 06/13/24 Lorrie Solis MD [address] [place] [address] PCP - [employer] Commercial Attributed 02/14/19 03/16/20 Lorrie Solis MD [address] [place] [address] PCP - [employer] Commercial Attributed 04/17/20 04/16/23 Lorrie Solis MD [address] [place] [address] PCP - General Internal Medicine 06/28/24 09/23/24 Pcp, No PCP - General General Medicine 09/24/24 Laly Gomez MD [address] [place] [address] Obstetrics and Gynecology 01/01/19 Renee Walker PA [address] [place] [address] Physician Head Well Puller Medical Oncology 12/17/22 documented as of this encounter
--- OUTSIDE RECORDS SUMMARY | 2025-02-09 08:27 | XMS_ITS | Encounter Summary ---
Author Organization [facility] Address [address] [place] [address] Care Team Providers Care Customer Account Executive Name Role Phone Lorrie Solis MD Primary Care Provider [phone]- [phone] Laly Gomez MD Unavailable Lorrie Solis MD Unavailable Renee Walker Unavailable Lorrie Solis MD Primary Care Provider [phone]- [phone] Pcp, No Primary Care Provider Unavailabl e Encounter Details Date Type Department Care Team (Late st Contact Info) Description 09/19/2020 Scanned Document [address] [phone] Lorrie Solis MD [address] [place] [address] Social History Tobacco Use Types Packs/Day Years [...] on filedocumented in this encounter Care Teams Customer Account Executive Relationship Specialty Start Date End Date Lorrie Solis MD [address] [place] [address] PCP - General Internal Medicine 04/03/17 06/13/24 Lorrie Solis MD [address] [place] [address] PCP - [employer] Commercial Attributed 04/17/20 04/16/23 Lorrie Solis MD [address] [place] [address] PCP - General Internal Medicine 06/28/24 09/23/24 Pcp, No PCP - General General Medicine 09/24/24 Laly Gomze MD [address] [place] [address] Obstetrics and Gynecology 01/01/19 Renee Walker PA [address] [place] [address] Physician Cognos Bi Administrator Medical Oncology 12/17/22 documented as of this encounter
--- OUTSIDE RECORDS SUMMARY | 2025-02-09 08:27 | XMS_ITS | Encounter Summary ---
Author Organization [facility] Address [address] [place] [address] Care Team Providers Care Graphics Editor Name Role Phone Thelma Camp Primary Care Provider Lorrie Solis MD Primary Care Provider [phone]- [phone] Laly Gomez MD Unavailable [phone] Lorrie Solis MD Unavailable Lorrie Solis MD Unavailable Renee Walker Unavailable Lorrie Solis MD Primary Care Provider +[phone]- [phone] Pcp, No Primary Care Provider Unavailabl e Encounter Details Date Type Department Care Team (Late st Contact Info) Description 01/23/2016 Scanned Document [address] [phone] Provider, Generic Social History Tobacco [...] on filedocumented in this encounter Care Teams Graphics Editor Relationship Specialty Start Date End Date Thelma Camp PA PCP - General Internal Medicine 11/03/15 04/02/17 Lorrie Solis MD [address] [place] [address] PCP - General Internal Medicine 04/03/17 06/13/24 Lorrie Solis MD [address] [place] [address] PCP - [employer] Commercial Attributed 02/14/19 03/16/20 Lorrie Solis MD [address] [place] [address] PCP - [employer] Commercial Attributed 04/17/20 04/16/23 oLrrie Solis MD [address] [place] [address] PCP - General Internal Medicine 06/28/24 09/23/24 Pcp, No PCP - General General Medicine 09/24/24 Laly Gomez MD [address] [place] [address] Obstetrics and Gynecology 01/01/19 Renee Walker PA [address] [place] [address] Physician Rubber Compounder Supervisor Medical Oncology 12/17/22 documented as of this encounter
--- OUTSIDE RECORDS SUMMARY | 2025-02-09 08:27 | XMS_ITS | Encounter Summary ---
Author Organization [facility] Address [address] [place] [address] Care Team Providers Care Pharmaceutical Operator Name Role Phone Mercy Bunch MD Primary Care Provider [phone] Thelma Camp Primary Care Provider Lorrie Solis MD Primary Care Provider +[phone]- [phone] Laly Gomez MD Unavailable [phone] Lorrie Solis MD Unavailable [phone] Lorrie Solis MD Unavailable Renee Walker Unavailable Lorrie Solis MD Primary Care Provider [phone]- [phone] Pcp, No Primary Care Provider Unavailabl e Encounter Details Date Type Department Care Team (Late st Contact Info) Description 10/31/2015 Scanned Document [address] [phone] Provider, Generic Social History Tobacco Use Types [...] on filedocumented in this encounter Care Teams Pharmaceutical Operator Relationship Specialty Start Date End Date Mercy Bunch MD PCP - General Internal Medicine 10/20/14 11/02/15 Thelma Camp PA PCP - General Internal Medicine 11/03/15 04/02/17 Lorrie Solis MD [address] [place] [address] PCP - General Internal Medicine 04/03/17 06/13/24 Lorrie Solis MD [address] [place] [address] PCP - [employer] Commercial Attributed 02/14/19 03/16/20 Lorrie Solis MD [address] [place] [address] PCP - [employer] Commercial Attributed 04/17/20 04/16/23 Lorrie Solis MD [address] [place] [phone] PCP - General Internal Medicine 06/28/24 09/23/24 Pcp, No PCP - General General Medicine 09/24/24 Laly Gomez MD [address] [place] [address] Obstetrics and Gynecology 01/01/19 Renee Walker PA [address] [place] [address] Physician Cash Grain Grower Medical Oncology 12/17/22 documented as of this encounter
--- OUTSIDE RECORDS SUMMARY | 2025-02-09 08:27 | XMS_ITS | Encounter Summary ---
Author Organization [facility] Address [address] [place] [address] Care Team Providers Care Can Striper Name Role Phone Thelma Camp Primary Care Provider Lorrie Solis MD Primary Care Provider +[phone]- [phone] Laly Gomez MD Unavailable [phone] Lorrie Solis MD Unavailable [phone] Lorrie Solis MD Unavailable Renee Walker Unavailable Lorrie Solis MD Primary Care Provider +[phone]- [phone] Pcp, No Primary Care Provider Unavailabl e Encounter Details Date Type Department Care Team (Late st Contact Info) Description 01/03/2017 Scanned Document [address] [place] [phone] Provider, Generic Social History Tobacco Use [...] on filedocumented in this encounter Care Teams Can Striper Relationship Specialty Start Date End Date Thelma Camp PA PCP - General Internal Medicine 11/03/15 04/02/17 Lorrie Solis MD [address] [place] [address] PCP - General Internal Medicine 04/03/17 06/13/24 Lorrie Solis MD [address] [place] [address] PCP - [employer] Attributed 02/14/19 03/16/20 Lorrie Solis MD [address] [place] [address] PCP - [employer] Commercial Attributed 04/17/20 04/16/23 Lorrie Solis MD [address] [place] [address] PCP - General Internal Medicine 06/28/24 09/23/24 Pcp, No PCP - General General Medicine 09/24/24 Laly Gomez MD [address] [place] [address] Obstetrics and Gynecology 01/01/19 Renee Walker PA [address] [place] [address] Physician International Account Manager Medical Oncology 12/17/22 documented as of this encounter
--- OUTSIDE RECORDS SUMMARY | 2025-02-09 08:27 | XMS_ITS | Encounter Summary ---
Author Organization [facility] Address [address] [place] [address] Care Team Providers Care Molder Name Role Phone Lorrie Solis MD Primary Care Provider [phone]- [phone] Laly Gomez MD Unavailable [phone] Lorrie Solis MD Unavailable Renee Walker Unavailable [phone] Lorrie Solis MD Primary Care Provider [phone]- [phone] Pcp, No Primary Care Provider Unavailabl e Encounter Details Date Type Department Care Team (Late st Contact Info) Description 06/13/2022 Scanned Document [facility] PRIMARY CARE SCAN Lorrie Solis MD [address] [place] [address] Social History Tobacco Use Types Packs/Day Years [...] on filedocumented in this encounter Care Teams Molder Relationship Specialty Start Date End Date Lorrie Solis MD [address] [place] [address] PCP - General Internal Medicine 04/03/17 06/13/24 Lorrie Solis MD [address] [place] [address] PCP - [employer] Commercial Attributed 04/17/20 04/16/23 Lorrie Solis MD [address] [place] [address] PCP - General Internal Medicine 06/28/24 09/23/24 Pcp, No PCP - General General Medicine 09/24/24 Laly Gomez MD [address] [place] [address] Obstetrics and Gynecology 01/01/19 Renee Walker PA [address] [place] [address] Physician Scrap Crane Operator Medical Oncology 12/17/22 documented as of this encounter
--- OUTSIDE RECORDS SUMMARY | 2025-02-09 08:27 | XMS_ITS | Encounter Summary ---
Author Organization [facility] Address [address] [place] [address] Care Team Providers Care Mental Health Therapist Name Role Phone Lorrie Solis MD Primary Care Provider +[phone]- [phone] Laly Gomez MD Unavailable [phone] Lorrie Solis MD Unavailable [phone] Lorrie Solis MD Unavailable [phone] Renee Walker Unavailable [phone] Lorrie Solis MD Primary Care Provider [phone]- [phone] Pcp, No Primary Care Provider Unavailabl e Encounter Details Date Type Department Care Team (Late st Contact Info) Description 06/26/2018 Scanned Document [address] [place] [phone] Provider, Generic Social History Tobacco Use Types [...] on filedocumented in this encounter Care Teams Mental Health Therapist Relationship Specialty Start Date End Date Lorrie Solis MD [address] [place] [address] PCP - General Internal Medicine 04/03/17 06/13/24 Lorrie Solis MD [address] [place] [address] PCP - [employer] Attributed 02/14/19 03/16/20 Lorrie Solis MD [address] [place] [address] PCP - [employer] Commercial Attributed 04/17/20 04/16/23 Lorrie Solis MD [address] [place] [address] PCP - General Internal Medicine 06/28/24 09/23/24 Pcp, No PCP - General General Medicine 09/24/24 Laly Gomez MD [address] [place] [address] Obstetrics and Gynecology 01/01/19 Renee Walker PA [address] [place] [address] Physician Flight Physician Medical Oncology 12/17/22 documented as of this encounter
--- OUTSIDE RECORDS SUMMARY | 2025-02-09 08:27 | XMS_ITS | Clinical Summary ---
Author Organization [facility] Address [address] [place] [address] Care Team Providers Care Nurse Esthetician Name Role Phone Laly Gomez MD Unavailable [phone] Renee Walker Unavailable [phone] Pcp, No Primary Care Provider Unavailabl e [...] EDT): Managed by medications prescribed by Lorrie Solis MD. Patient denies suicidal or homicidal ideation. Continue current medication regimen as prescribed. Patient to follow up with provider as previously directed. Factor 5 Leiden mutation, heterozygous 5 Overview (09/04/2017): Overview: heterozygosity H/O PE 10/26/10; Overview: heterozygosity H/O PE 10/26/10; Assessment & Plan (12/18/2022 9:56 AM EDT): Heterozygous factor V leiden. 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 Last PT/INR 3.9 12/17/2022. She will be bridging per Hematology / Oncology at [facility]. Patient states that she is working with Hematology on her bridging of Lovenox and they will be ordering her Lovenox injections and tell her when to stop Warfin and start the Lovenox. Contacted [facility] for copy of the plan. Continue [...] coumadin. Followed by Hematology / Oncology at [facility]. FRAN Noel. Continue with plan of care and follow up as previusly directed for further management and treatment. Resolved Problems Problem Noted Date Diagnosed Date Resolved Date Routine general medical exam ination at a health care facility 10/25/2014 02/10/2024 Immunizations Immunization Administration Dates Next Due Influenza [...] LAB BLOOD ORDERABLES Final Result [facility] * HEPATITIS C VIRUS (HCV) ANTIBODY (04/01/2023) Blood specimen (specimen) 04/01/2023 us Lorrie Solis MD LAB BLOOD ORDERABLES Final Result Performing Organization Address City/State/[facility] Co de Phone Number [facility] * MG SCREENING DIGITAL BREAST ROMY- [...] your patient to us, Andrew Dumont MD [id number] (Electronically Signed - 04/15/2022 07:09) Narrative 04/15/2022 [...] patients personal breast tissue composition as required bystate law. BIRADS Category 1: Negative Thank you for referring your patient to us, Andrew Dumont MD [id number] (Electronically Signed - 04/15/2022 07:09) Lorrie Solis MD IMG LEGACY PROCEDURES Yara l Result from Last 3 Months or Most Recently Relevant to Health Maintenance Insurance [facility] INDIVIDUAL EXCHANGE PPO [employer] INDIVIDUAL ON EXCHANGE [employer] INDIVIDUAL EXCHANGE PPO [employer] [place] PPO [facility] INDIVIDUAL ON EXCHANGE Advance Directives * Full Code (Latest Code Status on File) Date Activated Date Inactivated Comments 12/25/2022 5:16 AM Care Teams Nurse Esthetician Relationship Specialty Start Date End Date Pcp, No PCP - General General Medicine 09/24/24 Laly Gomez MD [address] [place] [address] Obstetrics and Gynecology 01/01/19 Renee Walker PA [address] [place] [address] Physician Architecture Professor Medical Oncology 12/17/22
--- OUTSIDE RECORDS SUMMARY | 2025-02-09 08:27 | XMS_ITS | Encounter Summary ---
Author Organization [facility] Address [address] [place] [address] Care Team Providers Care Homicide Squad Captain Name Role Phone Lorrie Solis MD Primary Care Provider [phone] Laly Gomez MD Unavailable Lorrie Solis MD Unavailable Renee Walker Unavailable Lorrie Solis MD Primary Care Provider [phone] Pcp, No Primary Care Provider Unavailabl e Encounter Details Date Type Department Care Team (Late st Contact Info) Description 12/12/2022 Scanned Document [facility] Colorectal Surgery [place] 85 [facility] [address] [place] [phone] Renee Walker, PA 1268 [facility] 107 [place], [place] [phone] Social History Tobacco Use Types Packs/Day Years [...] on filedocumented in this encounter Care Teams Homicide Squad Captain Relationship Specialty Start Date End Date Lorrie Solis MD [address] [place] [address] PCP - General Internal Medicine 04/03/17 06/13/24 Lorrie Solis MD [address] [place] [address] PCP - [employer] Commercial Attributed 04/17/20 04/16/23 Lorrie Solis MD [address] [place] [address] PCP - General Internal Medicine 06/28/24 09/23/24 Pcp, No PCP - General General Medicine 09/24/24 Laly Gomez MD [address] [place] [address] Obstetrics and Gynecology 01/01/19 Renee Walker PA [address] [place] [address] Physician Production Controller Medical Oncology 12/17/22 documented as of this encounter
--- OUTSIDE RECORDS SUMMARY | 2025-02-09 08:27 | XMS_ITS | Encounter Summary ---
Author Organization [facility] Address [address] [place] [address] Care Team Providers Care Fuse Assembler Name Role Phone Thelma Camp Primary Care Provider [phone] Lorrie Solis MD Primary Care Provider [phone] Laly Gomez MD Unavailable [phone] Lorrie Solis MD Unavailable Lorrie Solis MD Unavailable Renee Walker Unavailable [phone] Lorrie Solis MD Primary Care Provider [phone] Pcp, No Primary Care Provider Unavailabl e Encounter Details Date Type Department Care Team (Late st Contact Info) Description 03/14/2017 Scanned Document [address] [place] [phone] Provider, Generic Social History Tobacco Use [...] on filedocumented in this encounter Care Teams Fuse Assembler Relationship Specialty Start Date End Date Thelma Camp PA PCP - General Internal Medicine 11/03/15 04/02/17 Lorrie Solis MD [address] [place] [address] PCP - General Internal Medicine 04/03/17 06/13/24 Lorrie Solis MD [address] [place] [address] PCP - [employer] Attributed 02/14/19 03/16/20 Lorire Solis MD [address] [place] [address] PCP - [employer] Commercial Attributed 04/17/20 04/16/23 Lorrie Solis MD [address] [place] [address] PCP - General Internal Medicine 06/28/24 09/23/24 Pcp, No PCP - General General Medicine 09/24/24 Laly Gomez MD [address] [place] [address] Obstetrics and Gynecology 01/01/19 Renee Walker PA [address] [place] [address] Physician Administrative Resident Medical Oncology 12/17/22 documented as of this encounter
--- OUTSIDE RECORDS SUMMARY | 2025-02-09 08:27 | XMS_ITS | Encounter Summary ---
Author Organization [facility] Address [address] [place] [address] Care Team Providers Care Hotel Staff Member Name Role Phone Lorrie Solis MD Primary Care Provider [phone] Laly Gomez MD Unavailable Lorrie Solis MD Unavailable [phone] Renee Walker Unavailable [phone] Lorrie Solis MD Primary Care Provider [phone] Pcp, No Primary Care Provider Unavailabl e Encounter Details Date Type Department Care Team (Late st Contact Info) Description 12/12/2022 Scanned Document [facility] Colorectal Surgery [place] 85 [facility] [address] [place] [phone] Renee Walker, PA 1267 [facility] 107 [place], [place] [phone] Social History Tobacco Use Types Packs/Day Years [...] on filedocumented in this encounter Care Teams Hotel Staff Member Relationship Specialty Start Date End Date Lorrie Solis MD [address] [place] [address] PCP - General Internal Medicine 04/03/17 06/13/24 Lorrie Solis MD [address] [place] [address] PCP - [employer] Commercial Attributed 04/17/20 04/16/23 Lorrie Solis MD [address] [place] [address] PCP - General Internal Medicine 06/28/24 09/23/24 Pcp, No PCP - General General Medicine 09/24/24 Laly Gomez MD [address] [place] [address] Obstetrics and Gynecology 01/01/19 Renee Walker PA [address] [place] [address] Physician Production Grip Medical Oncology 12/17/22 documented as of this encounter
--- OUTSIDE RECORDS SUMMARY | 2025-02-09 08:27 | XMS_ITS | Encounter Summary ---
Author Organization [facility] Address [address] [place] [address] Care Team Providers Care Press Operator Printing Name Role Phone Thelma Camp Primary Care Provider Lorrie Solis MD Primary Care Provider [phone] Laly Gomez MD Unavailable [phone] Lorrie Solis MD Unavailable Lorrie Solis MD Unavailable Renee Walker Unavailable Lorrie Solis MD Primary Care Provider [phone] Pcp, No Primary Care Provider Unavailabl e Encounter Details Date Type Department Care Team (Late st Contact Info) Description 01/17/2017 Scanned Document [facility] [address] [phone] Thelma Camp PA 100 [facility] [address] [place] [address] Social History Tobacco Use Types Packs/Day Years [...] on filedocumented in this encounter Care Teams Press Operator Printing Relationship Specialty Start Date End Date Thelma Camp PA PCP - General Internal Medicine 11/03/15 04/02/17 Lorrie Solis MD [address] [place] [address] PCP - General Internal Medicine 04/03/17 06/13/24 Lorrie Solis MD [address] [place] [address] PCP - [employer] Attributed 02/14/19 03/16/20 Lorrie Solis MD [address] [place] [address] PCP - [employer] Commercial Attributed 04/17/20 04/16/23 Lorrie Solis MD [address] [place] [address] PCP - General Internal Medicine 06/28/24 09/23/24 Pcp, No PCP - General General Medicine 09/24/24 Laly Gomez MD [address] [place] [address] Obstetrics and Gynecology 01/01/19 Renee Walker PA [address] [place] [address] Physician Cogeneration Technician Medical Oncology 12/17/22 documented as of this encounter
--- OUTSIDE RECORDS SUMMARY | 2025-02-09 08:27 | XMS_ITS | Clinical Summary ---
Author Organization [facility] [address] Address [address] [place] [address] Phone Care Team Providers Care Tie Up Worker Name Role Phone Lorrie Solis MD Primary Care Provider [phone] Allergies Active Allergy Reactions Criticality Noted Date [...] twice daily 60 tablet 2 5 Active Active Problems Problem Noted Date Diagnosed Date On apixaban therapy 04/28/2024 Clinical depression 10/25/2014 Factor 5 Leiden mutation, heterozygous ([facility] V24) 10/25/2014 Overview (11/11/2023): heterozygosity H/O PE 10/26/10; Hypercoagulable state ([facility] V24) 10/25/2014 Anxiety state 2014 Idiopathic scoliosis and kyphoscoliosis 04/27/19 15 Pulmonary embolism ([facility] [place]24, [facility] V28) Encounters Date Type Department Care Team Description 12/21/2024 11:25 AM EDT - 12/21/2024 3:20 PM EDT Emergency [facility] Emergency [address] [place] [address] External hemorrhoid (Primary Dx) Discharge [...] disease) Depression DX:Depression Anxiety DX:Anxiety Pulmonary embolism ([facility] V24, [facility] V28) DX:Pulmonary embolism (HCC) Factor V Leiden carrier ([facility] V24) DX:Factor V Leiden carrier ([facility]) Family History Medical History Relation Name Comments [...] 06/29/2025 11:20 AM EDT Consult Gastroenterology - [address] [facility] [address] [place] [phone] Keri Richard, PIPE 299 [facility] [address] [place] [address] Health Maintenance Due Date Last Done Comments [...] AND DIFFERENTIAL STAT 12/21/2024 11:46 AM EDT HM HEPATITIS C SCREENING Routine 04/01/2023 HM HIV SCREENING Routine 04/01/2023 LIPID PANEL Routine [...] Signed Date: 12/21/2024 14:27 ET Workstation ID: [id number] Transcribed By: Self Edit Transcribed Date: 12/21/2024 [...] Signed Date: 12/21/2024 14:27 ET Workstation ID: [id number] Transcribed By: Self Edit Transcribed Date: 12/21/2024 14:22 ET [address] IM[address] CT PROCEDURES Final R esult * POC , urine manually resulted (12/21/2024 12:12 PM EDT) HCG, Ur POC Negative Negative POC hCG Int QC Pass? Yes Yes EXPIRATION DATE POC 05/04/2026 LOT NUMBER POC [id number] Urine Urine specimen obtained by clean catch procedure / Unknown 12/21/2024 12:12 PM EDT Buddy PETERS POINT OF CARE TEST ENTER/ EDIT ORDERABLES Final Result * (ABNORMAL) Urinalysis with reflex microscopic (12/21/2024 12:08 PM ED) Specific [place] Urine 1.022 1.003 - 1.030 LAB URINALYSIS - AUTOMATED METHOD 12/21/2024 12:27 PM [facility] pH, Urine 5.5 5.0 - 8.0 pH LAB URINALYSIS - AUTOMATED METHOD 12/21/2024 12:27 PM [facility] Leukocytes, Urine Trace(A) Negative LAB URINALYSIS - AUTOMATED METHOD 12/21/2024 12:27 PM [facility] Nitrite, Urine Negative Negative LAB URINALYSIS - AUTOMATED METHOD 12/21/2024 12:27 PM [facility] Protein, Urine Negative <=Trace mg/dL LAB URINALYSIS - AUTOMATED METHOD 12/21/2024 12:27 PM [facility] Glucose, Urine Negative Negative mg/dL LAB URINALYSIS - AUTOMATED METHOD 12/21/2024 12:27 PM [facility] Ketones, Urine Negative Negative mg/dL LAB URINALYSIS - AUTOMATED METHOD 12/21/2024 12:27 PM [facility] Urobilinogen , Urine 0.2 0.2 - 1.0 mg/dL LAB URINALYSIS - AUTOMATED METHOD 12/21/2024 12:27 PM [facility] Bilirubin, Urine Negative Negative LAB URINALYSIS - AUTOMATED METHOD 12/21/2024 12:27 PM [facility] Blood, Urine Negative Negative LAB URINALYSIS - AUTOMATED METHOD 12/21/2024 12:27 PM [facility] RBC, Urine 3.2 0 - 4 /HPF LAB URINALYSIS - AUTOMATED METHOD 12/21/2024 12:27 PM [facility] WBC, Urine 4.6(H) 0 - 4 /HPF LAB URINALYSIS - AUTOMATED METHOD 12/21/2024 12:27 PM [facility] Squamous Epithelial, Urine 22 0 - 60 /LPF LAB URINALYSIS - AUTOMATED METHOD 12/21/2024 12:27 PM EDT [facility] Bacteria, Urine Moderate(A) Negative /HPF LAB URINALYSIS - AUTOMATED METHOD 12/21/2024 12:27 PM EDT [facility] Hyaline Casts, Urine 1.6 0 - 3 /LPF LAB URINALYSIS - AUTOMATED METHOD 12/21/2024 12:27 PM EDT [facility] Urine Urine specimen obtained by clean catch procedure / Unknown Non-blood Collection / Unknown 12/21/2024 12:08 PM EDT 12/21/2024 12:16 PM EDT Buddy PETERS LAB URINE ORDERABLES Yara l Result Performing Organization Address City/[facility]/ZIP Co de Phone Number [facility] [address] [place] [address], [place] [phone] * Bilirubin duplicate procedure to order (12/21/2024 11:46 AM EDT) Total Bilirubin 0.4 0.0 - 1.4 mg/dL LAB CHEMISTRY METHOD 12/21/2024 12:56 PM EDT [facility] Bilirubin, Direct 0.1 0.0 - 0.3 mg/dL LAB CHEMISTRY METHOD 12/21/2024 12:56 PM EDT [facility] Bilirubin, Indirect 0.3 0.0 - 1.1 mg/dL LAB CHEMISTRY METHOD 12/21/2024 12:56 PM EDT [facility] Blood Venous blood specimen / Unknown Venipuncture / Unknown 12/21/2024 11:46 AM EDT 12/21/2024 12:02 PM EDT us Yousuf Langley MD LAB BLOOD ORDERABLES Yara l Result Performing Organization Address City/[facility]/ZIP Co de Phone Number [facility] [address] [place] [address], [place] [phone] * CBC auto differential (12/21/2024 11:46 AM EDT) [facility] WBC 5.6 4.8 - 10.8 K/mcL LAB HEMETOLOGY METHOD 12/21/2024 12:16 PM EDT [facility] RBC 4.60 3.80 - 4.80 M/mcL LAB HEMETOLOGY METHOD 12/21/2024 12:16 PM EDT [facility] Hemoglobin 14.4 11.5 - 16.0 g/dL LAB HEMETOLOGY METHOD 12/21/2024 12:16 PM EDT [facility] Hematocrit 43.4 35.0 - 47.0 % LAB HEMETOLOGY METHOD 12/21/2024 12:16 PM EDT [facility] MCV 93.9 79.0 - 98.0 FL LAB HEMETOLOGY METHOD 12/21/2024 12:16 PM EDT [facility] MCH 31.2 27.0 - 32.0 pcg LAB HEMETOLOGY METHOD 12/21/2024 12:16 PM EDT [facility] MCHC 33.2 32.0 - 37.0 g/dL LAB HEMETOLOGY METHOD 12/21/2024 12:16 PM EDT [facility] RDW 12.7 11.0 - 15.0 % LAB HEMETOLOGY METHOD 12/21/2024 12:16 PM EDT [facility] Platelets 303 130 - 400 K/mcL LAB HEMETOLOGY METHOD 12/21/2024 12:16 PM EDT [facility] MPV 9.8 7.0 - 11.0 FL LAB HEMETOLOGY METHOD 12/21/2024 12:16 PM EDT [facility] NRBC 0.0 <1.0 % LAB HEMETOLOGY METHOD 12/21/2024 12:[facility] NRBC Absolute 0.00 <0.10 K/mcL LAB HEMETOLOGY METHOD 12/21/2024 12:16 PM [facility] Neutrophils Relative 48.9 % LAB HEMETOLOGY METHOD 12/21/2024 12:16 PM [facility] Lymphocytes Relative 41.9 % LAB HEMETOLOGY METHOD 12/21/2024 12:16 PM [facility] Monocytes Relative 6.8 % LAB HEMETOLOGY METHOD 12/21/2024 12:16 PM [facility] Eosinophils Relative 0.7 % LAB HEMETOLOGY METHOD 12/21/2024 12:16 PM [facility] Basophils Relative 1.3 % LAB HEMETOLOGY METHOD 12/21/2024 12:16 PM [facility] Immature Granulocytes Relative 0.4 % LAB HEMETOLOGY METHOD 12/21/2024 12:16 PM [facility] Neutrophils Absolute 2.72 1.50 - 7.00 K/mcL LAB HEMETOLOGY METHOD 12/21/2024 12:16 PM [facility] Lymphocytes Absolute 2.33 1.00 - 5.00 K/mcL LAB HEMETOLOGY METHOD 12/21/2024 12:16 PM [facility] Monocytes Absolute 0.38 0.20 - 1.00 K/mcL LAB HEMETOLOGY METHOD 12/21/2024 12:16 PM [facility] Eosinophils Absolute 0.04 0.00 - 0.50 K/mcL LAB HEMETOLOGY METHOD 12/21/2024 12:16 PM [facility] Basophils Absolute 0.07 0.00 - 0.20 K/mcL LAB HEMETOLOGY METHOD 12/21/2024 12:16 PM [facility] Immature Granulocytes Absolute 0.02 0.00 - 0.03 K/mcL LAB HEMETOLOGY METHOD 12/21/2024 12:16 PM EDT [facility] Blood Venous blood specimen / Unknown Venipuncture / Unknown 12/21/2024 11:46 AM EDT 12/21/2024 12:02 PM EDT Yousuf Langley MD LAB BLOOD ORDERABLES Yara l Result Performing Organization Address City/[facility]/ZIP Co de Phone Number [facility] [address] [place] [address], [place] [phone] * Activated partial thromboplastin time (12/21/2024 11:46 AM EDT) aPTT 35.6 24.1 - 39.3 sec LAB COAGULATION METHOD 12/21/2024 12:20 PM EDT [facility] Blood Venous blood specimen / Unknown Venipuncture / Unknown 12/21/2024 11:46 AM EDT 12/21/2024 12:02 PM EDT Yousuf Langley MD LAB BLOOD ORDERABLES Yara l Result Performing Organization Address [facility] Co de Phone Number [facility] [address] [place] [address], [place] [phone] * (ABNORMAL) Prothrombin time with INR (12/21/2024 11:46 AM EDT) Protime 14.3(H) 10.6 - 13.9 sec LAB COAGULATION METHOD 12/21/2024 12:20 PM EDT [facility] INR 1.1 LAB COAGULATION METHOD 12/21/2024 12:20 PM EDT [facility] Blood Venous blood specimen / Unknown Venipuncture / Unknown 12/21/2024 11:46 AM EDT 12/21/2024 12:02 PM EDT Yousuf Langley MD LAB BLOOD ORDERABLES Yara l Result [facility] [address] [place] [address], [place] [phone] * Type and screen (12/21/2024 11:46 AM EDT) Pathologist [facility] ABO Group A 12/21/2024 12:57 PM EDT [facility] Rh Type Negative 12/21/2024 12:57 PM EDT [facility] Antibody Screen Negative 12/21/2024 12:57 PM EDT [facility] Blood Venous blood specimen / Unknown Venipuncture / Unknown 12/21/2024 11:46 AM EDT 12/21/2024 12:02 PM EDT Yousuf Langley MD LAB BLOOD BANK TEST ORDER BREANN Final Result Performing Organization Address City/[facility]/ZIP Co de Phone Number [facility] [address] [place] [address], [place] [phone] * Comprehensive metabolic panel (12/21/2024 11:46 AM EDT) Pathologist [facility] Sodium 140 133 - 145 mmol/L LAB CHEMISTRY METHOD 12/21/2024 12:56 PM T [facility] Potassium 4.0 3.5 - 5.5 mmol/L LAB CHEMISTRY METHOD 12/21/2024 12:56 PM EDT [facility] Chloride 108 96 - 110 mmol/L LAB CHEMISTRY METHOD 12/21/2024 12:56 PM EDT [facility] CO2 26 21 - 32 mmol/L LAB CHEMISTRY METHOD 12/21/2024 12:56 PM EDT [facility] Anion Gap 6 3 - 11 LAB CHEMISTRY METHOD 12/21/2024 12:56 PM EDT [facility] Glucose 77 70 - 100 mg/dL LAB CHEMISTRY METHOD 12/21/2024 12:56 PM [facility] BUN 16 5 - 25 mg/dL LAB CHEMISTRY METHOD 12/21/2024 12:56 PM [facility] Creatinine 0.90 0.50 - 1.10 mg/dL LAB CHEMISTRY METHOD 12/21/2024 12:56 PM [facility] eGFR 76 >=60 mL/min/1. 73m2 LAB CHEMISTRY METHOD 12/21/2024 12:56 PM [facility] Comment:Calculation based on the Chronic Kidney Disease Epidemiology Collaboration (CKD-EPI) equation refit without adjustment for race. BUN/Creatinine Ratio 17.8 LAB CHEMISTRY METHOD 12/21/2024 12:56 PM [facility] Calcium 9.6 8.5 - 10.5 mg/dL LAB CHEMISTRY METHOD 12/21/2024 12:56 PM [facility] AST (SGOT) 17 10 - 42 unit/L LAB CHEMISTRY METHOD 12/21/2024 12:56 PM [facility] ALT (SGPT) 24 10 - 60 unit/L LAB CHEMISTRY METHOD 12/21/2024 12:56 PM [facility] Alkaline Phosphatase 77 42 - 121 unit/L LAB CHEMISTRY METHOD 12/21/2024 12:56 PM [facility] Total Protein 7.4 6.0 - 8.0 g/dL LAB CHEMISTRY METHOD 12/21/2024 12:56 PM [facility] Albumin 3.9 3.2 - 5.0 g/dL LAB CHEMISTRY METHOD 12/21/2024 12:56 PM [facility] Total Bilirubin 0.4 0.0 - 1.4 mg/dL LAB CHEMISTRY METHOD 12/21/2024 12:56 PM [facility] Blood Venous blood specimen / Unknown Venipuncture / Unknown 12/21/2024 11:46 AM EDT 12/21/2024 12:02 PM EDT Yousuf Langley MD LAB BLOOD ORDERABLES Yara l Result [facility] ([facility] [address] [place] [address], * HIV Screening (04/01/2023) HIV Screening abstracted Historical Provider HEALTH MAINTENANCE Final Result * Hepatitis C Screening (04/01/2023) Pathologist [facility] Hepatitis C Screening abstracted Historical Provider HEALTH MAINTENANCE Final Result * (ABNORMAL) Lipid panel (11/13/2022) Triglycerides 172(A) <=150 mg/dL Cholesterol 188 0 - 200 mg/dL HDL 46 37 - 92 mg/dL LDL Cholesterol 108 50 - 130 mg/dL Blood Venous blood specimen / Unknown Historical Provider LAB BLOOD ORDERABLES Yara l Result from Last 3 Months or Most Recently Relevant to Health Maintenance Insurance [facility] Care Teams Tie Up Worker Relationship Specialty Start Date End Date Lorrie Solis MD [address] [place] [address] PCP - General 06/12/22
[2025-02-09 08:28] VITALS: BP 102/68; PULSE 64; RESP 18; O2SAT 96; BMI 29.6
== END 2025-02-09 09:32 | disposition home or self-care (01) ==
LOC: HO.HMCH 08:13
DX: Z23 Encounter for immunization (principal)

== ENCOUNTER → 2025-02-09 08:12 | Outpatient (BNVA) | payer OTHER, SELFPAY | DX: Z00.00 Encounter for general adult medical examination without abnormal findings (principal); R42 Dizziness and giddiness; R51.9 Headache, unspecified; E78.5 Hyperlipidemia, unspecified; E55.9 Vitamin D deficiency, unspecified; N60.09 Solitary cyst of unspecified breast; M47.812 Spondylosis without myelopathy or radiculopathy, cervical region; I26.99 Other pulmonary embolism without acute cor pulmonale; F32.A Depression, unspecified; F41.9 Anxiety disorder, unspecified; G47.00 Insomnia, unspecified; R31.21 Asymptomatic microscopic hematuria; Z79.01 Long term (current) use of anticoagulants; Z78.0 Asymptomatic menopausal state; Z79.899 Other long term (current) drug therapy | CPT/HCPCS: 90471; 90656; 99212 ==

== ENCOUNTER 2025-02-09 09:38 | Outpatient (REF) | payer OTHER, SELFPAY ==
[2025-02-09 10:48] LABS: Appearance Urine Clear; Glucose Urine UA Negative (Negative); PH 6.5 (5.0-9.0); Specific Gravity - Urine 1.020 (1.005-1.025); UMIC TRIGGER UACC YES
== END 2025-02-09 09:39 | disposition home or self-care (01) ==
LOC: HO.10HDLNP 09:38
DX: R31.21 Asymptomatic microscopic hematuria (principal)
CPT/HCPCS: 81001; 88112